=== PATIENT | male | born 1955 | race Caucasian/White ===

== ENCOUNTER 2018-07-03 08:09 | Day surgery (SDC) | payer OTHER ==
[2018-07-02 10:51] VITALS: BMI 28.1
[~2018-07-03 08:09] MED LIST: LACTATED RINGERS 1,000 ML IV SCH; LIDOCAINE 1% 20 ML VIAL (10MG/ML) FOR IV START INTRADERMA PRN; MIDAZOLAM (PF) 2 MG/2 ML VIAL IV PRN
[2018-07-03] MEDS ORDERED: PROPOFOL 10 MG/ML 20 ML VIAL IV ONE (09:33)
[2018-07-03] MEDS ORDERED: LIDOCAINE 1% INJ 10MG/ML (20 ML MDV) ONE (09:33)
[2018-07-03 10:00] VITALS: RESP 18
--- NOTE | 2018-07-03 10:01 | P.PCN ---
Date of Procedure: 07/03/18 Procedure(s) Performed: Procedure: Total colonoscopy. Preoperative diagnosis: Screening for neoplasia. Postoperative diagnosis: Mild diverticulosis with no evidence of acute diverticulitis, strictures, polyps or cancer. Preparation: HalfLytely prep. Sedation: Was provided by anesthesia. Brief clinical history: The patient a 62-year-old male who is scheduled for this evaluation for screening for neoplasia age being his risk factor as well as history of polyps. Apparently, he had a prior colonoscopy more than 10 years ago and he believes he had polyps removed. The patient has no abdominal complaints, bleeding or anemia. Procedure: With the patient on his left lateral decubitus position and after informed consent and adequate sedation, the perianal area was inspected and it did not show any fissures or fistulas. There were no masses felt on digital rectal examination. The Olympus CFH 190L video colonoscope was then inserted in the rectum in the usual fashion and advanced to the cecum. There was occasional diverticular orifices seen scattered in the sigmoid, around the hepatic flexure and on the right side with no evidence of acute diverticulitis or strictures. The mucosa appeared healthy. No polyps or tumors were seen. I retroflexed the endoscope in the rectum before the endoscope was withdrawn. The patient tolerated the procedure well. Plan: The patient was reassured. Discussed dietary measures. He will follow up with you as planned and in light of his history of polyps, I recommended repeat exam in 5 years.
[2018-07-03 10:20] VITALS: BP 118/83; PULSE 80
== END 2018-07-03 10:29 | disposition home or self-care (01) ==
LOC: ORWHC2ENDO 08:09
DX: Z12.11 Encounter for screening for malignant neoplasm of colon (principal); K57.30 Diverticulosis of large intestine without perforation or abscess without bleeding; F17.210 Nicotine dependence, cigarettes, uncomplicated; Z86.010 Personal history of colon polyps
CPT/HCPCS: J2001; J2704; G0105

== ENCOUNTER → 2021-02-19 | Outpatient (CLI) | payer MEDICARE, OTHER ==
--- NOTE | 2021-02-19 10:57 | US ---
EXAMINATION TYPE: US duplex aorta DATE OF EXAM: 02/19/2021 COMPARISON: NONE CLINICAL HISTORY: 65-year-old Z13.6 Screening for aneurysm. TECHNIQUE: Multiple sonographic images of the abdomen were obtained. FINDINGS: EXAM MEASUREMENTS: Abdominal Aorta: Proximal: 2.3cm Mid: 1.8cm Distal: 1.5cm Bifurcation: Right: 1.0 Left: 1.3cm IMPRESSION: No sonographic evidence for AAA.
== END | disposition home or self-care (01) ==
LOC: RADUSWWP 10:21
PROVIDERS: ATTEND Family Medicine
DX: Z13.6 Encounter for screening for cardiovascular disorders (principal)
CPT/HCPCS: 93979

== ENCOUNTER 2022-01-14 07:56 | Day surgery (SDC) | payer MEDICARE, OTHER ==
[2022-01-13 10:59] VITALS: BMI 28.5
[~2022-01-14 07:56] MED LIST changes: +ALPRAZolam 0.25 MG TAB PO PRN; +ASPIRIN 325 MG TAB PO PRN; -LACTATED RINGERS 1,000 ML IV SCH; -LIDOCAINE 1% 20 ML VIAL (10MG/ML) FOR IV START INTRADERMA PRN; -MIDAZOLAM (PF) 2 MG/2 ML VIAL IV PRN; +SODIUM CHLORIDE 0.9% 1,000 ML in EMPTY BAG 1 BAG IV ONE
[2022-01-14] MEDS ORDERED: SODIUM CHLORIDE 0.9% 1,000 ML IV ONE (08:10)
[2022-01-14] MEDS ORDERED: fentaNYL (PF) 50 MCG/ML 2 ML AMP ONE (09:53)
[2022-01-14] MEDS: MIDAZOLAM 2 MG/2 ML VIAL IV ONE ×2 (10:10→10:29)
[2022-01-14] MEDS: fentaNYL (PF) 50 MCG/ML 2 ML AMP IV ONE ×2 (10:10→12:00)
[2022-01-14] MEDS ORDERED: LIDOCAINE 1% INJ 10MG/ML (30 ML VIAL-PF) SQ ONE (10:11)
[2022-01-14] MEDS ORDERED: HEPARIN SODIUM 1,000 UN/ML (10ML VL) ONE (10:28)
[2022-01-14] MEDS ORDERED: HEPARIN SODIUM 1,000 UN/ML (10ML VL) IV ONE (10:28)
[2022-01-14] MEDS ORDERED: IOPAMIDOL-250 100ML BTL INTRAARTER ONE ×3 (11:47→12:00)
[2022-01-14] MEDS ORDERED: CLOPIDOGREL 75 MG TAB ONE (11:53)
[2022-01-14] MEDS ORDERED: CLOPIDOGREL 75 MG TAB PO ONE (11:53)
[2022-01-14] MEDS ORDERED: MIDAZOLAM 2 MG/2 ML VIAL IVP ONE (12:01)
[2022-01-14] MEDS ORDERED: ACETAMINOPHEN TAB 325 MG TAB PO PRN (12:21)
--- NOTE | 2022-01-14 12:24 | IR ---
Fluoroscopy HISTORY: Peripheral vascular occlusive disease 39.2 minutes fluoroscopy time supplied to the referring clinician. 227 intraoperative C-arm images d ocument the procedure. See dictated report from cardiology.
--- NOTE | 2022-01-14 13:31 | P.PCN ---
Description of Procedure: PROCEDURES PERFORMED: Abdominal angiography with bilateral runoff, SPRING COILING MACHINE SETTER and stenting of the left common iliac artery with a 7.0 x 59mm Omnilink stent, IVUS INDICATION: [place] class 3 claudication of left hip with exertion, abnormal ultrasound consistent with left inflow disease CONSENT:I have discussed the risks, benefits and alternative therapies for the above-mentioned procedure and for both sedation/analgesia as well as necessary blood product administration, if indicated, as they pertain to this patient. The patient has indicated understanding and acceptance of the risks and procedures discussed. PROCEDURE: After the risks, benefits and alternatives of the above mentioned procedure explained in detail with the patient, informed consent was obtained. Patient was taken to the catheterization lab and prepped and draped in usual fashion. 1% lidocaine was used to anesthetize the right femoral area. A 5- Italian sheath was placed in the right femoral artery using modified Seldinger technique. A 5-Italian pigtail catheter was inserted to the abdominal aorta and DSA imaging was obtained. Patient tolerated the diagnostic portion well. Next the decision was made to perform intervention. Using ultrasound guidance, a 6Fr sheath was placed in the left femoral artery. Heparin was given. Using a glide catheter and a 0.035 wire the proximal portion of the stenosis was crossed. Next a number of attempts were made using a 0.018 Asato wire. The lesion was eventually able to be wired and a microcatheter was advanced and verified to be intraluminal. Next balloon angioplasty was performed with a 4.0 balloon. IVUS was performed which showed the wire to be intraluminal with the reference iliac artery being 7.0 mm. This showed the wire exiting the proximal cap and therefore no kissing stents were felt needed. Next predilation was performed with a 6.0 x 40mm balloon. Next a 7.0 x 59mm Omnilink stent was ad vanced and deployed at the proximal left common iliac artery extending into the left external iliac artery. Repeat IVUS showed excellent stent apposition and sizing with no dissection. Preintervention there was 100% stenosis with limited flow from collaterals and post intervention there was 0% stenosis with uninhibited flow. Right and left femoral angiograms were performed which showed adequate anatomy for closure and therefore bilateral 6Fr Angioseals were placed with hemostasis achieved. The patient tolerated the procedure well. Patient was transported back to the post catheterization holding area in stable condition. Conscious Sedation: Patient was monitored under the direct supervision of vision of myself for conscious sedation using Versed and fentanyl for a total duration of 108 minutes HEMODYNAMICS: Ao: 132/77 Abdominal aorta: The abdominal aorta has mild calcifcation. Renal arteries are patent. There is no significant dissection or aneurysm. There is no signifi cant stenosis. Right lower extremity: Right common iliac artery: There is no significant stenosis. Right external iliac artery: There is no significant stenosis. Right internal iliac artery: There is no significant stenosis. Right common femoral artery: There is 30-40% right common femoral artery stenosis. Right profunda: There is no significant stenosis. Right SFA: There is no significant stenosis. Right popliteal artery: There is no significant stenosis. Right tibioperoneal trunk: There is no significant stenosis. Right anterior tibial artery: There is no significant stenosis. Right porterior tibial artery: There is no significant stenosis. Right peroneal artery: There is no significant stenosis. Left lower extremity: Left common iliac artery: There is 100% proximal stenosis. Left external iliac artery: The common iliac stenosis extends to the proximal external iliac artery and otherwise is normal. Left internal iliac artery: There is no significant stenosis. Left common femoral artery: There is no significant stenosis. Left profunda: There is no significant stenosis. Left SFA: There is no significant stenosis. Left popliteal artery: There is no significant stenosis. Left tibioperoneal trunk: There is no significant stenosis. Left anterior tibial artery: There is no significant stenosis. Left porterior tibial artery: There is no significant stenosis. Left peroneal artery: There is no significant stenosis. FINAL IMPRESSION: 1. Peripheral arterial disease as described above including 100% left common iliac artery stenosis 2. S/p SPRING COILING MACHINE SETTER and stenting of the left common iliac artery with a 7.0 x 59mm Omnilink stent PLAN: 1. Aggressive risk factor modification per most recent ACC/AHA guidelines. 2. Continue aspirin and Plavix for minimum of 3 months.
[2022-01-14] MEDS: NICOTINE 21MG/24HR PATCH TRANSDERM SCH (14:32)
[2022-01-14] MEDS: SODIUM CHLORIDE 0.9% 1,000 ML IV SCH (14:32)
[2022-01-14] MEDS: THIAMINE 100 MG TAB PO SCH (20:22)
[2022-01-14] MEDS: QUEtiapine 50 MG TAB PO SCH (20:22)
[2022-01-14] MEDS ORDERED: diphenhydrAMINE 25 MG CAP PO SCH (21:00)
[2022-01-14] MEDS ORDERED: ACETAMINOPHEN TAB 500 MG TAB PO SCH (21:00)
[2022-01-15] MEDS: SODIUM CHLORIDE 0.9% 1,000 ML IV SCH ×2 (06:24→11:05)
[2022-01-15] MEDS ORDERED: PANTOPRAZOLE 40 MG TABLET PO SCH (07:30)
[2022-01-15] MEDS: QUEtiapine 50 MG TAB PO SCH (07:42)
[2022-01-15] MEDS: THIAMINE 100 MG TAB PO SCH (07:42)
[2022-01-15] MEDS: NICOTINE 21MG/24HR PATCH TRANSDERM SCH (07:43)
[2022-01-15 07:50] VITALS: TEMP 98
[2022-01-15] MEDS ORDERED: ONDANSETRON 4 MG/2 ML VIAL IVP STA (08:15)
[2022-01-15] MEDS ORDERED: ASPIRIN 81 MG PO SCH (09:00)
[2022-01-15] MEDS ORDERED: CLOPIDOGREL 75 MG TAB PO SCH (09:00)
[2022-01-15 11:10] VITALS: BP 140/93; PULSE 84; RESP 18
--- NOTE | 2022-01-15 11:52 | P.DS ---
Providers Expected date of discharge: 01/15/22 Attending physician: Shane Zimmer DO Primary care physician: Matt Medina - Discharge Diagnosis(es) (1) Peripheral artery disease Current Visit: Yes Status: Acute Hospital Course: This pleasant 66-year-old male with a history of tobacco abuse, alcohol use, atypical chest pains, and left hip pain initially presented to the office with pain of his left lower extremity. He underwent a lower extremity ultrasound which showed monophasic dampening of waveforms throughout the inflow and down, concerning for more proximal stenosis. Patient was scheduled for a abdominal angiography with bilateral runoff. He was found to have 100% stenosis of the proximal left common iliac artery and underwent MICA PASTER and stenting of the left common iliac artery. Patient was recommended aggressive risk factor modifications and started on dual antiplatelet therapy aspirin and Plavix for a minimum of 3 months. Patient is examined this morning doing well ready to go home, in no signs of acute distress. pulses are present bilaterally lower extremities. Puncture site is soft with no hematoma. Patient will follow with Dr. Zimmer in the office Assessment: PHYSICAL EXAM: VITAL SIGNS: Reviewed. GENERAL: Well-developed in no acute distress. HEENT: Head is normocephalic. Pupils are equal, round. Sclerae anicteric. Mucous membranes of the mouth are moist. NECK: Supple. No JVD or thyromegaly RESPIRATORY: Respirations even and unlabored. Lungs diminished to auscultation bilaterally. CARDIO: Regular rate and rhythm. S1 and S2 heard. No murmur or gallops. EXTREMITIES: Normal range of motion. No clubbing or cyanosis. Peripheral pulses intact. Negative for bilateral lower extremity edema right femoral puncture site is soft with no hematoma NEURO: Orientated to person, time, mood is appropriate Procedures: Patient underwent abdominal angiography with bilateral renals, MICA PASTER and stenting of the left common iliac artery Patient Condition at Discharge: Good Plan - Discharge Summary Discharge Rx Participant: Yes New Discharge Prescriptions: New Aspirin EC [Ecotrin Low Dose] 81 mg PO DAILY 90 Days #90 tab Clopidogrel [Plavix] 75 mg PO DAILY 30 Days #30 tablet No Action Ibuprofen 200 mg PO Q6H PRN PRN Reason: Pain Thiamine [Vitamin B-1] 100 mg PO BID QUEtiapine FUMARATE [QUEtiapine FUMARATE ER] 50 mg PO BID Omeprazole [PriLOSEC] 20 mg PO DAILY Acetaminophen/Diphenhydramine [Tylenol PM 500-25mg] 1 tab PO HS Discharge Medication List Acetaminophen/Diphenhydramine [Tylenol PM 500-25mg] 1 tab PO HS 01/13/22 [Hist ory] Omeprazole [PriLOSEC] 20 mg PO DAILY 01/13/22 [History] QUEtiapine FUMARATE [QUEtiapine FUMARATE ER] 50 mg PO BID 01/13/22 [History] Thiamine [Vitamin B-1] 100 mg PO BID 01/13/22 [History] Aspirin EC [Ecotrin Low Dose] 81 mg PO DAILY 90 Days #90 tab 01/15/22 [Rx] Clopidogrel [Plavix] 75 mg PO DAILY 30 Days #30 tablet 01/15/22 [Rx] Follow up Appointment(s)/Referral(s): Shane Zimmer DO [STAFF PHYSICIAN] - 01/24/22 4:30 pm Patient Instructions/Handouts: Angio-Seal (DC), Peripheral Vascular Stent Placement (DC)
== END 2022-01-15 12:34 | disposition home or self-care (01) ==
LOC: CATHCVL 07:56 → 3SCARD 11:57 → CATHCVL 01-15 12:34
PROVIDERS: ATTEND Internal Medicine
DX: I70.212 Atherosclerosis of native arteries of extremities with intermittent claudication, left leg (principal); Z79.01 Long term (current) use of anticoagulants; Z79.82 Long term (current) use of aspirin
CPT/HCPCS: 37221; 75625; 75716; 37252; C1894 ×2; C1769 ×6; C1725 ×2; C1876; C1887; C1753; C1751; S4990 ×2; J2250; J2405; J2001; J3010; J1644; Q9966

== ENCOUNTER → 2022-09-06 | Outpatient (CLI) | payer MEDICARE, OTHER ==
--- NOTE | 2022-09-06 12:30 | US ---
EXAMINATION TYPE: US carotid duplex BILAT DATE OF EXAM: 09/06/2022 COMPARISON: NONE CLINICAL INDICATION: Male, 66 years old with history of R55 SYNCOPE AND COLLAPSE; Syncope TECHNIQUE: Carotid duplex ultrasound examination. Indirect Doppler criteria was utilized. FINDINGS: EXAM MEASUREMENTS: RIGHT: Peak Systolic Velocity (PSV) cm/sec ----- Right CCA: 84.3 ----- Right ICA: 93.8 ----- Right ECA: 120 ICA/CCA ratio: 1.1 RIGHT: End Diastole cm/sec ----- Right CCA: 21.1 ----- Right ICA: 33.3 ----- Right ECA: 25.1 LEFT: Peak Systolic Velocity (PSV) cm/sec ----- Left CCA: 74.1 ----- Left ICA: 82.9 ----- Left ECA: 122 ICA/CCA ratio: 1.1 LEFT: End Diastole cm/sec ----- Left CCA: 23.1 ----- Left ICA: 29.2 ----- Left ECA: 28.3 VERTEBRALS (direction of flow): Right Vertebral: Antegrade Left Vertebral: Antegrade Rhythm: Normal SERVICES ENGINEER NOTES: Heterogeneous plaque bilateral bulbs, however No significant velocity elevations IMPRESSION: Mild atherosclerotic plaque within both bulbs without ultrasound evidence for hemodynamically signifi cant stenosis of the bilateral internal carotid arteries. Criteria for Assigning % of Stenosis / Diameter reduction (Estimation based on the indirect measurements of the internal carotid artery velocities (ICA PSV). 1. Normal (no stenosis)=ICA PSV < 125 cm/s: ratio < 2.0: ICA EDV<40 cm/s. 2. Less than 50% stenosis=ICA PSV < 125 cm/s: ratio < 2.0: ICA EDV<40 cm/s. 3. 50 to 69% stenosis=ICA PSV of 125 to 230 cm/s: ration 2.0 ? 4.0: ICA EDV 40-100 cm/s. 4. Greater than 70% stenosis to near occlusion= ICA PSV > 230 cm/s: ratio > 4.0: ICA EDV > 100 cm/s. 5. Near occlusion= ICA PSV velocities may be low or undetectable: variable ratio and ICA EDV. 6. Total occlusion=unable to detect flow.
== END | disposition home or self-care (01) ==
LOC: RADUSWWP 11:04
PROVIDERS: ATTEND Family Medicine
DX: I70.90 Unspecified atherosclerosis (principal); R55 Syncope and collapse
CPT/HCPCS: 93880

== ENCOUNTER → 2022-12-05 | Outpatient (CLI) | payer MEDICARE, OTHER ==
--- NOTE | 2022-12-05 14:53 | MR ---
EXAMINATION TYPE: MR lumbar spine wo con DATE OF EXAM: 12/05/2022 COMPARISON: Lumbar spine radiograph 11/24/2022 HISTORY: Lower back and bilateral hip pain. TECHNIQUE: Multiplanar, multisequence images of the lumbar spine were acquired without IV contrast. FINDINGS: Lumbar segments are intact. No paraspinal masses are identified. Conus medullaris has a normal appe arance. Multilevel disc desiccation. Chronic appearing anterior wedge compression deformity of the L1 vertebral body with approximately 10% height loss and no retropulsion. No edema identified. Mild ret rolisthesis of L2 on L3. Diffusely heterogenous bone marrow signal. L1-L2: Broad-based disc bulge without significant effacement of the intrathecal sac. Bilateral facet arthropathy. No significant neural foraminal stenosis. L2-L3: Mild retrolisthesis. No disc herniation. Bilateral facet arthropathy. No significant central c anal stenosis. Mild bilateral neural foraminal stenosis. L3-L4: Broad-based disc bulge with ligamentum flavum buckling and bilateral facet arthropathy contrib uting to mild to moderate central canal stenosis. Moderate right and moderate to severe left neural f oraminal stenosis. L4-L5: Broad-based disc bulge with ligamentum flavum buckling and bilateral facet arthropathy contrib uting to moderate severe central canal stenosis. Moderate right and mild to moderate left neural fora sadaf stenosis. L5-S1: Broad-based disc bulge with bilateral facet arthropathy contribute to minimal central canal st enosis. There is moderate to severe right and severe left neural foraminal stenosis. IMPRESSION: 1. Multilevel moderate degenerative disc disease and facet arthropathy without disc herniation. This is most pronounced at L3-L5 with disc bulges, ligamentum flavum buckling, and facet arthropathy. Resu lts in mild to moderate central canal stenosis at L3-L4 and moderate to severe central canal stenosis at L4-L5. Varying degrees of neural foraminal stenosis as described above. 2. Mild retrolisthesis of L2 on L3. 3. Chronic anterior wedge compression deformity of the L1 vertebral body with approximately 10% heigh t loss and no retropulsion. No edema. 4. Diffuse heterogenous bone marrow signal which can be seen in the setting of tobacco abuse, anemia, or myeloproliferative disorder.
== END | disposition home or self-care (01) ==
LOC: RADMRIMAIN 13:04
PROVIDERS: ATTEND Orthopaedic Surgery
DX: M48.56XA Collapsed vertebra, not elsewhere classified, lumbar region, initial encounter for fracture (principal); M48.062 Spinal stenosis, lumbar region with neurogenic claudication; M51.36 Other intervertebral disc degeneration, lumbar region; M99.74 Connective tissue and disc stenosis of intervertebral foramina of sacral region; M43.16 Spondylolisthesis, lumbar region; M47.816 Spondylosis without myelopathy or radiculopathy, lumbar region; X58.XXXA Exposure to other specified factors, initial encounter
CPT/HCPCS: 72148

== ENCOUNTER → 2023-01-24 | Outpatient (CLI) | payer MEDICARE, OTHER ==
--- NOTE | 2023-01-24 13:37 | CT ---
EXAMINATION TYPE: CT thor lumbar spine wo con DATE OF EXAM: 01/24/2023 COMPARISON: None HISTORY: 67-year-old male back pain hx of scoliosis. M54.6 M54.50 LOW BACK PAIN, SPINE TECHNIQUE: Contiguous axial scanning of the thoracic and lumbar spine without IV contrast. Coronal an d sagittal reconstructions performed. CT DLP: 2229.90 mGycm Automated exposure control for dose reduction was used. FINDINGS: THORACIC SPINE: Underlying emphysematous change. Small hiatal hernia. Left common iliac artery stent. Normal appendix. Dextroconvex curvature along the upper thoracic spine. Moderate to advanced disc/endplate degenerative change in the visualized lower cervical spine. Thoracic spine shows preserved vertebral body heights and alignment. By CT, no large focal disc herniation is seen. Some scattered facet arthropathy upper and lower thoracic spine. On the right, this contributes to mo derate neural foraminal narrowing at C7-T1 and T1-T2. Also at T9-T10. On the left, there is more severe neuroforaminal stenosis at C6-C7 and C7-T1. LUMBAR SPINE: Moderate to advanced degenerative disc disease throughout with disc space narrowing and vacuum phenom enon. Additional hypertrophic facet arthropathy is present, greatest towards the right in the lower lumbar spine. There is degenerative grade 1 retrolisthesis from L1 through L5 levels. Disc bulges throughout impress onto the ventral thecal sac but do not result in any significant spina l canal stenosis. There is overall mild narrowing of the spinal canal at L3-L4 and more moderate at L4-L5. On the right, changes result in severe neuroforaminal stenosis at L5-S1, moderate to severe L4-L5, an d moderate at L3-L4. On the left, changes result in severe neuroforaminal stenosis at L3-L4 and moderate to severe at L5-S 1. Moderate at L4-L5. IMPRESSION: THORACIC SPINE: 1. SLIGHT DEXTROCONVEXED CURVATURE ALONG THE UPPER THORACIC SPINE. 2. NO VERTEBRAL COMPRESSION COLLAPSE OR MALALIGNMENT. No evident canal compromise by CT. 3. Moderate to advanced discogenic degenerative change in the visualized lower cervical spine. 4. Scattered facet arthropathy up or and lower thoracic spine. On the left, this results in severe ne ural foraminal stenosis at C6/C7 and C7-T1. Moderate on the right C7-T1, T1-T2, and T9-T10. Lumbar spine: 5. Moderate to advanced degenerative disc disease throughout. 6. Scattered facet arthropathy. Degenerative grade 1 retrolisthesis from L1 through L5 levels. 7. No vertebral compression collapse. 8. Changes result in moderate spinal canal narrowing at L4-L5 and mild at L3-L4. 9. Variable moderate to severe neuroforaminal stenoses as outlined above.
== END | disposition home or self-care (01) ==
LOC: RADCTMAIN 12:25
PROVIDERS: ATTEND Orthopaedic Surgery
DX: M43.8X4 Other specified deforming dorsopathies, thoracic region (principal); M50.31 Other cervical disc degeneration, high cervical region; M47.814 Spondylosis without myelopathy or radiculopathy, thoracic region; M99.72 Connective tissue and disc stenosis of intervertebral foramina of thoracic region; M51.36 Other intervertebral disc degeneration, lumbar region; M43.16 Spondylolisthesis, lumbar region; M47.816 Spondylosis without myelopathy or radiculopathy, lumbar region; M48.061 Spinal stenosis, lumbar region without neurogenic claudication; M99.73 Connective tissue and disc stenosis of intervertebral foramina of lumbar region
CPT/HCPCS: 72128; 72131

== ENCOUNTER → 2023-01-24 | Outpatient (CLI) | payer MEDICARE, OTHER ==
--- NOTE | 2023-01-24 15:10 | XR ---
EXAMINATION TYPE: XR scoliosis survey DATE OF EXAM: 01/24/2023 COMPARISON: NONE HISTORY: Pain TECHNIQUE: 4 views submitted FINDINGS: Chronic rib deformities suggest remote trauma. Hypertrophic and degenerative change of the spine. Scoliotic curvature of approximately 12 degrees. Correlate for previous vascular stent in the left iliac vasculature. Calcification of the visualized vasculature. Hypertrophic and degenerative ch anges of the spine. Minimal wedging L1 appears chronic. IMPRESSION: 1. Multilevel severe degenerative disc disease lumbar spine with scoliotic curvature of approximately 12 degrees.
== END | disposition home or self-care (01) ==
LOC: RADXRMAIN 12:32
PROVIDERS: ATTEND Orthopaedic Surgery
DX: M51.36 Other intervertebral disc degeneration, lumbar region (principal); M41.86 Other forms of scoliosis, lumbar region
CPT/HCPCS: 72082

== ENCOUNTER 2023-01-25 10:05 | Day surgery (SDC) | payer MEDICARE, OTHER ==
[~2023-01-25 10:05] MED LIST changes: -ALPRAZolam 0.25 MG TAB PO PRN; -ASPIRIN 325 MG TAB PO PRN; +LACTATED RINGERS 1,000 ML IV SCH; +LIDOCAINE 1% (10MG/ML) FOR IV START INTRADERMA PRN; -SODIUM CHLORIDE 0.9% 1,000 ML in EMPTY BAG 1 BAG IV ONE
[2023-01-25 11:36] VITALS: RESP 16; TEMP 97.7
[2023-01-25] MEDS ORDERED: IPRATROPIUM-ALBUTEROL 3 ML NEB INHALATION STA (11:48)
[2023-01-25] MEDS ORDERED: LIDOCAINE 2% (PF) 20 MG/ML 5 ML VIAL ONE (12:53)
[2023-01-25] MEDS ORDERED: PROPOFOL 10 MG/ML 20 ML VIAL IV ONE (12:53)
--- NOTE | 2023-01-25 13:01 | P.PCN ---
Date of Procedure: 01/25/23 Procedure(s) Performed: BRIEF HISTORY: Patient is a 67-year-old, pleasant, white male scheduled for an upper endoscopy as a part of evaluation of intermittent dysphagia to solids and history of Petit's esophagus that was diagnosed in July 2022. Biopsies from the Petit's esophagus was indefinite for dysplasia. He has been on omeprazole 20 mg twice daily and is scheduled for repeat upper endoscopy in 6 months.. PROCEDURE PERFORMED: Esophagogastroduodenoscopy with biopsy. PREOPERATIVE DIAGNOSIS: GERD/Petit's esophagus. IV sedation per anesthesia. PROCEDURE: After informed consent was obtained, the patient was brought into the endoscopy unit. IV sedation was administered by Anesthesia under continuous monitoring. Initially the Olympus GIF-140 video endoscope was inserted into the mouth. Esophagus intubated without any difficulty. It was gradually advanced into the stomach and duodenum and carefully examined. The bulb and the second part of the duodenum appeared normal. The scope at this time was withdrawn to the stomach, adequately insufflated with air, and upon careful examination, mucosa of the antrum, body, cardia and the fundus appeared normal. The scope was then withdrawn into the esophagus. Mall hiatal hernia noted. The GE junction was located at 39 cm from the incisors. There was a long segment of Petit's esophagus extending from 37-39 cm from the incisors and multiple biopsies were done from this area. Previously noted ulcerations in the distal esophagus appe ared completely healed. The esophagus appeared normal. There were no erosions or ulcerations seen and the patient tolerated the procedure well. IMPRESSION: 1. Petit's esophagus extending from 37-39 cm from the incisors status post multiple biopsies to evaluate for dysplasia. 2. Small hiatal hernia. RECOMMENDATIONS: The findings of this examination were discussed with the patient as well as his family. He was advised to follow with the biopsy results. In the meantime he will continue with omeprazole 20 mg daily and follow antrum reflux measures. If the biopsy does not show any evidence of dysplasia, he can have a repeat upper endoscopy in 3 years.
[2023-01-25 13:27] VITALS: BP 103/73; PULSE 89
== END 2023-01-25 13:51 | disposition home or self-care (01) ==
LOC: ORWHC2ENDO 10:05
PROVIDERS: ATTEND Internal Medicine Gastroenterology
DX: K22.70 Barrett's esophagus without dysplasia (principal); K21.00 Gastro-esophageal reflux disease with esophagitis, without bleeding; K44.9 Diaphragmatic hernia without obstruction or gangrene; I73.9 Peripheral vascular disease, unspecified; J44.9 Chronic obstructive pulmonary disease, unspecified; M19.90 Unspecified osteoarthritis, unspecified site; K21.9 Gastro-esophageal reflux disease without esophagitis; F17.210 Nicotine dependence, cigarettes, uncomplicated; Z79.51 Long term (current) use of inhaled steroids; Z79.899 Other long term (current) drug therapy
CPT/HCPCS: 94640; 88305; 43239; J2704; J2001

== ENCOUNTER → 2023-04-25 | Outpatient (CLI) | payer MEDICARE, OTHER | END | disposition home or self-care (01) | LOC: LABPAT 12:25 | PROVIDERS: ATTEND Orthopaedic Surgery | DX: Z01.812 Encounter for preprocedural laboratory examination (principal); M48.062 Spinal stenosis, lumbar region with neurogenic claudication; M47.817 Spondylosis without myelopathy or radiculopathy, lumbosacral region; Z22.322 Carrier or suspected carrier of Methicillin resistant Staphylococcus aureus | CPT/HCPCS: 36415; 86850; 86900; 86901; 87070 ==

== ENCOUNTER 2023-05-02 05:32 | Inpatient (IN) | payer MEDICARE, OTHER ==
--- NOTE | 2023-04-30 16:14 | P.HPOR ---
History of Present Illness H&P Date: 04/19/23 .D:Date: 04/19/23 : 10:14am .T:Title: [facility] History and Physical Date of :55 [id number]: NKDA Age: 67 year Height: 5'10" Weight: 191 lbs BMI: 27.41 kg/m2 Occupation: Retired VAS: 5 Hand:Right IMPRESSION: It was my pleasure to have seen and examined Lenny. I reviewed the patient's clinical syndrome, physical findings, and imaging studies during the appointment today. It is my impression that the patient has a diagnosis of. 1. L1-S1 spondylosis with stenosis, severe 2. Neurogenic claudication 3. Lower extremity radiculopathy, bilateral 4. Lower extremity weakness, bilateral 5. Low back pain I outlined the natural course history without intervention and various interventional options. Spine Surgery Risk Review Mr. Hester is presenting for evaluation of low back and bilateral lower extremity pain, bilateral lower extremity numbness, tingling, and weakness. It was my pleasure to have seen and examined Mr. Hester. In our visit today we have had a chance to go over subjective complaints, physical examination findings and treatments including the natural course history without intervention and various interventional options. The patients imaging demonstrates: CT [facility]23 of the Thoracic & Lumbar Spine: Images reviewed with pt. L1-S1 sondylosis severe, with vacuum disc at each level. Grade I spondylolisthesis of L3-4 and L4-5 noted on these films. No fractrures notes. Severe disc degeneration, collapse, facet arthropathy, overgrowth and hypertrophy all contribute to severe stenosis at these levels along with flattened LL. MRI completed at [facility] on 12/05/2022 of Lumbar Spine: - Imaging is re-reviewed today with the patient. Severe spondylosis throughout the lumbar spine. The span from L1 to S1. There is flattening of the normal lumbar lordosis secondary to disc collapse at every level. There is retrolisthesis of L1 and L2 L2 L3 and L3-L4. There is anterior listhesis of L4 and L5 with moderate to severe central stenosis at L4-L5. There is severe spondylosis L5-S1 with bilateral foraminal stenosis which is severe. Very degrees of foraminal stenosis throughout the lumbar spine mostly severe. Thoracic or lumbar junction shows kyphotic alignment. Boggy facets throughout the lumbar spine no acute fracture. XRAY of the Lumbar Multiview (AP, Lateral, Flexion, Extension) with AP pelvis; 5 views taken at [facility] on 11/24/22: - Images re-reviewed with the patient in office today. Severe multilevel spondylitic degenerative changes with preserved alignment. Multilevel diminished disc height. Chronic compression fracture of L1 vertebral body with 10% height loss. Multilevel opposing endplate changes with osteophytosis. Multilevel bilateral foraminal stenosis. No acute osseous abnormalities. AP Pelvis: The visualized sacrum and iliac wings are within normal limits. On physical exam, Mr. Hester demonstrates: A sharp, shooting pain throughout the lumbar spine that radiates down into the bilateral lower extremities with any activity or movement. He denies experiencing any significant low back pain when sitting or at rest. The patient notes that his left leg pain is much more severe than the right at this time. He states his lower extremity pain is associated with numbness and tingling. The patient notes increased weakness throughout the bilateral lower extremities that is more significant upon the left side. The patient states that his symptoms worsen after prolonged standing or after any bending, lifting, or twisting motions. The patient notes that his symptoms have started to become intractable. The patient reports experiencing severe sleep disturbances related to his ongoing pain and associated symptoms. I have explained to the patient that as their condition progresses it will cause further neurological deficits and eventual paralysis. Based on the patients imaging, physical exam, and the rapid progression and disabling nature of their symptoms, at this time I recommend surgery in the form of a: [id number] decompression and fusion. I discussed the risk and benefits of this procedure at length with Mr. Hester. The patient agreed to considered pursuing the procedure abovementioned. Prior to surgery, she should follow up with her PCP (Cardio, ID, IM etc) for clearance. Questions were invited and answered, and the patient wishes to proceed as outlined below. Currently, I am recommendin.[id number] decompression and fusion 2.Review of surgical risks and benefits as well as an educational packet on the proposed surgical procedure. Risks: All surgical procedures come with inherent risks, including those related to positioning, anesthesia, intraoperative findings, and postoperative complications. It is important to understand that surgery does not come with any guarantee of a successful outcome as complications and adverse events are always possible. The patient was given a handout in office today discussing the surgical procedure and risks associated with the intervention, both of which were discussed with the patient. These risks include but are not limited to the following: * Experiencing same, different or even worse symptoms in back, neck, arms, or legs compared to before surgery. Requiring further surgery or other forms of treatment presently or at some time in the future at same or other levels of the intended spine surgery. On an extreme but fortunately relatively rare basis severe complication such as blindness, stroke, heart attack, temporary and/or permanent nerve injury, paralysis, coma, or may occur, sometimes without known explanation. Surgical complications may include but are not limited to risk of infection, fl uid accumulation in the surgical dissection site, including a seroma or hematoma, that requires additional surgery, wound drainage, bleeding, new numbness or weakness, vision changes/loss, spinal fluid leakage, non-healing and/or infected incision, headaches, difficulty or inability to swallow, hoarseness, hemopneumothorax, pneumothorax, impotence, retrograde ejaculation, vaginal dryness; injury to nerves, spinal cord, blood vessels, lymphatics or other vital organs (i.e., bowel injury, injury to the great vessels); heterotopic bone formation; complications related to the hardware such as scre ws, rods, cages including misplaced hardware, device failure, instrumentation at the wrong spine level, hardware fracture/breakage, or hardware loosening; vertebral failure of the spinal column above or below the newly placed hardware; retained surgical instrumentations or devices and the need for further surgery. * Medical risks of the planned spine surgery include but are not limited to generalized Infections to the whole body or local areas outside of the surgical site (sepsis), heart attack, bleeding, anaphylaxis, meningitis, seizure, epilepsy, hearing loss, burn quintana, laceration of the head or other areas of the body, bruising, hypersensitivity of the skin, bladder over distension; allergic reaction; shoulder injury related to positioning; fat, blood and air clots to other areas of the body like heart, lungs, brain; failure of internal organs such as lungs, kidneys, liver and excessive bleeding. If blood transfusions are necessary, note that transfusions may cause intolerance reactions such as anaphylaxis or other complex reactions. Despite best efforts, the results of spine surgery might not heal in terms of bone, soft tissues such as skin, fascia, ligaments, and joints. Additionally, in order to achieve best possible results, spine surgery may be carried out beyond the initially planned levels and involve decompression, fusion including insertion of hardware at levels other than the original intended area of surgical interest change some portions of the procedure in order to ensure the best possible outcomes. With spine surgery and spinal fusion, there are different off label uses of instrumentation (devices, implants and hardware) as well as biological substances (bone morphogenic proteins, demineralized bone matrix) as well as using extra bone from allograft sources (i.e. cadaver bone) or autograft (iliac crest bone, ribs, or the spine itself). The patient has been given information about these practices and their inherent risks and benefits. [facility] is an educational center that serves as a training facility for neurosurgical and orthopedic DRYWALL WORKER and Nursing students. Physician assistants are medically trained surgical providers who function in the outpatient, inpatient, and operating room setting under the direct supervision of the attending surgeon. [facility] has multiple operating rooms with single and overlapping rooms running daily. They currently function under the required guidelines as produced by the [facility] Finance Committee with regards to the overlapping rooms and will continue to comply with changes to this policy as they occur. The requirements include and are complied with as follows: (1) the critical portions of the overlapping rooms will not occur at the same time, (2) the attending physician will be physically present during the critical portions of the procedure and immediately available during the entire case, and (3) a back-up attending is designated should the primary attending not be immediately available. The patient has had a chance to review all the listed information, has been given print outs detailing this information, and has had all his/her questions answered to their satisfaction. It was my pleasure to have seen and examined Mr. Hester. In our visit today we have had a chance to go over my understanding of our patient's current condition, the natural course history without intervention and various interventional options. Questions were invited and answered, and the patient wishes to proceed as outlined above. I have seen and examined the patient for 25 minutes and we have spent more than 50% of the time in repeat and detailed counseling about the patient's condition, its natural course history with out and as much as can be predicted with surgery and re-review of various surgical treatment options. In conclusion, Mr. Hester requested we proceed with the above suggested surgery and are willing to accept risks and limitations of the suggested surgery as nature of the disease process and our best attempts at treatment for the condition. Thank you again for allowing us to be part of your patient's care. Please don't hesitate to contact me if you have any further questions. Signed and authenticated by: [employer] P:\\\\ppart\\\\Files\\\\[id number] \\[id number]\\\\[id number]\\\\[id number]\\\\[id number]\\\\[id number]\\\\[id number]\\\\[id number]\\\\[id number]\\\\[id number]\\\\[id number] \\d Jluis Yao DO [facility] Complex and Minimally Invasive Spine Surgery [address] [place] [address] Follow-up: Post procedure Patient Education: (Informational booklet, instructions, etc) given at today's appointment: Yes .ED:Patient Education: Y Plan at next visit: X-ray (AP & Lat) lumbar spine Medications Reviewed: YES In our visit today Mr. Hester and I have had a chance to go over my understanding of the patient's current condition, the natural course history without intervention and various interventional options. Questions were invited and answered, and the patient wishes to proceed as outlined above. I will be sure to keep you updated afterMr. Hester returns here for further follow-up. Thank you again for your referral. Please do not hesitate to contact me if you have any further questions. Signed and authenticated by: Jluis Yao DO [facility] Complex and Minimally Invasive Spine Surgery [address] [place] [address] This message is confidential, intended only for the named recipient(s) and may contain information that is privileged or exempt from disclosure under applicable law. If you are not the intended recipient(s), you are notified that the dissemination, distribution or copying of this information is strictly prohibited. If you received this message in error, please notify the sender then delete this message. Patient verbalizes understanding of the information discussed. The above note was initiated by Miroslava Linares, physician recording early childhood teacher assistant for Dr. Jluis Yao. This note has been reviewed by Dr. Yao, who has made his personal changes and impressions for this document. CC: Matt Medina M.D. # SIGNED BY Jluis Yao (GOO)04/22/2023 11:42AM Past Medical History Past Medical History: COPD, GERD/Reflux, Hyperlipidemia, Osteoarthritis (OA), Prostate Disorder, Vascular Disorder Additional Past Medical History / Comment(s): bilater leg pain left leg-worse left hip( possible back related) ,hx colon polyps, trouble swallowing. some vomiting uses carafate. BPH, cannot move well due to back pain. pt states he does not use his inhalers and did not refill his atorvastatin. History of Any Multi-Drug Resistant Organisms: MRSA Date of last positivie culture/infection: approx 5-10 yrs ago (pt unsure-already in computer) MDRO Source:: unk site Past Surgical History: Orthopedic Surgery Additional Past Surgical History / Comment(s): thumb and finger repair, colonoscopy, egd , left iliac stend placement. Past Anesthesia/Blood Transfusion Reactions: No Reported Reaction Smoking Status: Current every day smoker - Past Family History Mother Family Medical History: No Reported History Father Family Medical History: Myocardial Infarction ([place]) Medications and Allergies Home Medications Medication Instructions Recorded Confirmed Type Acetaminophen/Diphenhydramine 1 tab PO HS 01/13/22 04/26/23 History [Tylenol PM 500-25mg] Omeprazole [PriLOSEC] 20 mg PO DAILY 01/13/22 04/26/23 History QUEtiapine FUMARATE [QUEtiapine 100 mg PO BID 01/13/22 04/26/23 History FUMARATE ER] Thiamine [Vitamin B-1] 100 mg PO BID 01/13/22 04/26/23 History Aspirin EC [Ecotrin Low Dose] 81 mg PO DAILY 90 Days #90 tab 01/15/22 04/26/23 Rx Albuterol Inhaler [Ventolin Hfa 2 puff INHALATION Q4HR PRN 01/24/23 04/26/23 History Inhaler] Budesonide/Formoterol Fumarate 2 puff INHALATION BID PRN 01/24/23 04/26/23 History [Symbicort 160-4.5 Mcg Inhaler] Gabapentin 300 mg PO TID 04/26/23 04/26/23 History Sucralfate [Sucralfate Oral Susp] 10 ml PO DIRECTED 04/26/23 04/26/23 History Allergies Allergy/AdvReac Type Severity Reaction Status Date / Time No Known Allergies Allergy Verified 04/25/23 15:29 Physical Examination Osteopathic Statement: *. No significant issues noted on an osteopathic structural exam other than those noted in the History and Physical/Consult.
[~2023-05-02 05:32] MED LIST changes: -LACTATED RINGERS 1,000 ML IV SCH; -LIDOCAINE 1% (10MG/ML) FOR IV START INTRADERMA PRN; +TRANEXAMIC 1,000 MG/100ML-NACL 1,000 MG in SALINE 1 100ML.BAG IVPB PRN
[2023-05-02] MEDS ORDERED: droPERidol 5 MG/2 ML VIAL IVP ONE (05:41)
[2023-05-02] MEDS ORDERED: LACTATED RINGERS 1,000 ML IV SCH (05:41)
[2023-05-02] MEDS ORDERED: ONDANSETRON 4 MG/2 ML VIAL IVP ONE (05:41)
[2023-05-02] MEDS ORDERED: LIDOCAINE 1% (10MG/ML) FOR IV START INTRADERMA PRN (05:41)
[2023-05-02] MEDS: LACTATED RINGERS 1,000 ML IV ONE (06:30)
[2023-05-02] MEDS: ACETAMINOPHEN TAB 500 MG TAB PO PRN (06:30)
[2023-05-02] MEDS: GABAPENTIN 300 MG CAP PO PRN (06:30)
[2023-05-02] MEDS: ONDANSETRON 4 MG/2 ML VIAL IVP PRN (06:31)
[2023-05-02 06:34] VITALS: BP 164/87; PULSE 107; RESP 18; TEMP 96.6
[2023-05-02 06:36] LABS: Anisocytosis Slight; Basophils # (A) 0.1 k/uL (0-0.2); Basophils % (A) 1 %; Eosinophils % (A) 0 %; HGB 10.2 gm/dL (13.0-17.5); Hypochromasia Marked; Lymphocytes # (A) 0.6 k/uL (1.0-4.8); Lymphocytes % (A) 12 %; MCH 20.5 pg (25.0-35.0); MCV 68.2 fL (80.0-100.0); Mean Platelet Volume 7.4; Microcytosis Marked; Monocytes # (A) 0.4 k/uL (0-1.0); Monocytes % (A) 7 %; Neutrophils # (A) 3.7 k/uL (1.3-7.7); Neutrophils % (A) 77 %; Platelet Count 354 k/uL (150-450); Poikilocytosis Slight; RBC 4.98 m/uL (4.30-5.90); RDW 19.6 % (11.5-15.5); WBC 4.8 k/uL (3.8-10.6)
[2023-05-02 06:48] LABS: ALT 51 U/L (4-49); AST 46 U/L (17-59); African American GFR (CKD) >90 (>60 ml/min/1.73 sqM); Albumin 4.7 g/dL (3.5-5.0); Alkaline Phosphatase 101 U/L (38-126); Anion Gap 16 mmol/L; Blood Urea Nitrogen 12 mg/dL (9-20); Calcium 9.2 mg/dL (8.4-10.2); Carbon Dioxide 21 mmol/L (22-30); Chloride 102 mmol/L (98-107); Glucose 177 mg/dL (74-99); Non-African American GFR(CKD) 83 (>60 ml/min/1.73 sqM); Potassium 3.9 mmol/L (3.5-5.1); Sodium 139 mmol/L (137-145); Total Bilirubin 0.7 mg/dL (0.2-1.3); Total Protein 8.5 g/dL (6.3-8.2)
[2023-05-02 06:54] LABS: Partial Thromboplastin Time 26.6 sec (22.0-30.0); Prothrombin Time 11.1 sec (10.0-12.5)
[2023-05-02] MEDS ORDERED: HYDROmorphone 0.5 MG/0.5 ML SYRINGE IVP PRN (07:00)
--- NOTE | 2023-05-02 07:41 | P.PN ---
Progress Note - Text Progress Note Date: 05/02/23 Patient was seen and examined in preoperative area. In discussion with anesthesia after they evaluated the patient he is currently having active diarrhea as well as not feeling well. We discussed with the patient at length his current symptoms. He has had no fevers however he stated that this morning he almost called in and said he wanted to wait on surgery because he was not feeling well. She came many ways. He is currently having active diarrhea which he feels like he cannot control. He denies any fevers or chills shortness of breath at this time. Due to concerns of potential infection along with active fluid shifts and laboratory values in discussion with anesthesia they do not feel comfortable proceeding. I agree. I had a long talk with the patient about being safe for surgery as well as postponing surgery at this time. He understands. He is very frustrated however he knows that we have his best interest in mind. We will help him in any way possible and expedite him getting in again. I would like to have him evaluated by his primary care doctor as soon as possible. If this is not possible then we will attempt to have him evaluated by a internal medicine doctor. He was cleared by cardio and pulmonary as well as his primary care doctor for this surgery. We will make sure that these clearances are valid before proceeding with surgery again. He is comfortable with this at this time. He will receive a call from my office today to discuss rescheduling.
== END 2023-05-02 08:00 | disposition home or self-care (01) | DRG 552 ==
LOC: 2ORMAIN 05:32
PROVIDERS: ADMIT Orthopaedic Surgery; ATTEND Orthopaedic Surgery
DX: M47.26 Other spondylosis with radiculopathy, lumbar region (principal); M48.56XA Collapsed vertebra, not elsewhere classified, lumbar region, initial encounter for fracture; M48.062 Spinal stenosis, lumbar region with neurogenic claudication; J44.9 Chronic obstructive pulmonary disease, unspecified; Z53.09 Procedure and treatment not carried out because of other contraindication; K21.9 Gastro-esophageal reflux disease without esophagitis; M19.90 Unspecified osteoarthritis, unspecified site; N40.0 Benign prostatic hyperplasia without lower urinary tract symptoms; Z86.010 Personal history of colon polyps; Z86.14 Personal history of Methicillin resistant Staphylococcus aureus infection; M43.16 Spondylolisthesis, lumbar region; M51.17 Intervertebral disc disorders with radiculopathy, lumbosacral region; M47.817 Spondylosis without myelopathy or radiculopathy, lumbosacral region; E78.5 Hyperlipidemia, unspecified; F17.210 Nicotine dependence, cigarettes, uncomplicated; Z79.51 Long term (current) use of inhaled steroids; Z79.82 Long term (current) use of aspirin; Z79.899 Other long term (current) drug therapy; Z82.49 Family history of ischemic heart disease and other diseases of the circulatory system; Z98.1 Arthrodesis status
CPT/HCPCS: 80053; 82306; 85025; 85610; 85730

== ENCOUNTER 2023-05-11 07:23 | Inpatient (IN) | payer MEDICARE, OTHER ==
[~2023-05-11 07:23] MED LIST changes: +HYDROmorphone 0.5 MG/0.5 ML SYRINGE IVP PRN; +LIDOCAINE 1% (10MG/ML) FOR IV START INTRADERMA PRN; +ONDANSETRON 4 MG/2 ML VIAL IVP PRN
[2023-05-11] MEDS: LACTATED RINGERS 1,000 ML IV ONE ×5 (08:00→15:30)
[2023-05-11] MEDS: MIDAZOLAM 2 MG/2 ML VIAL IVP ONE (08:10)
[2023-05-11] MEDS: fentaNYL (PF) 50 MCG/ML 2 ML AMP IVP ONE ×3 (08:11→09:11)
[2023-05-11] MEDS: GABAPENTIN 300 MG CAP PO PRN (08:13)
[2023-05-11] MEDS: ACETAMINOPHEN TAB 500 MG TAB PO PRN (08:13)
[2023-05-11 08:15] LABS: Glucose,Whole Blood 150 mg/dL (70-110)
[2023-05-11] MEDS: ONDANSETRON 4 MG/2 ML VIAL IVP ONE (08:36)
[2023-05-11] MEDS: fentaNYL (PF) 50 MCG/1 ML VIAL IVP ONE (08:50)
--- NOTE | 2023-05-11 08:59 | P.PN ---
Progress Note - Text Progress Note Date: 05/11/23 HISTORY AND PHYSICAL UPDATE Pt s/e in the Pre op area. Discussed his current state and how he is feeling he is ready for surgery and he feels much better than before and wants surgery today. H&P reviewed from before no changes noted. Exam no changes. Risks and benefits discussed again. He understands and is willing to assume these risks. He is willing to proceed.
[2023-05-11] MEDS: THROMBIN (BOVINE) 5,000 UNIT VIAL MISCELLANE ONE ×2 (09:15)
[2023-05-11] MEDS: GELATIN SPONGE,ABSORB (LARGE) 1 EACH SPONGE MISCELLANE ONE (09:17)
[2023-05-11] MEDS ORDERED: PHENYLEPHRINE 10 MG/ML VIAL ONE (09:29)
[2023-05-11] MEDS ORDERED: fentaNYL (PF) 50 MCG/ML 2 ML AMP ONE (09:29)
[2023-05-11] MEDS ORDERED: DEXMEDETOMIDINE 200 MCG/2 ML VIAL IV ONE (09:29)
[2023-05-11] MEDS ORDERED: VASOPRESSIN 20 UNIT/ML 1 ML VIAL ONE (09:29)
[2023-05-11] MEDS ORDERED: KETAMINE HCL IN 0.9 % NACL 50 MG/5 ML SYRINGE ONE (09:29)
[2023-05-11] MEDS ORDERED: NEOSTIGMINE 1 MG/ML 10 ML VIAL ONE (09:29)
[2023-05-11] MEDS ORDERED: WATER FOR INJECTION, STERILE 10 ML VIAL IV ONE (09:29)
[2023-05-11] MEDS ORDERED: ePHEDrine 50 MG/ML 1 ML VIAL ONE (09:29)
[2023-05-11] MEDS ORDERED: ALBUMIN HUMAN 5% (25gm) 500 ML VIAL IVPB ONE (09:29)
[2023-05-11] MEDS ORDERED: ONDANSETRON 4 MG/2 ML VIAL ONE (09:29)
[2023-05-11] MEDS ORDERED: SUCCINYLCHOLINE CHLORIDE 200 MG/10 ML VIAL IV ONE (09:29)
[2023-05-11] MEDS ORDERED: GLYCOPYRROLATE 0.2 MG/ML 2 ML VIAL ONE (09:29)
[2023-05-11] MEDS ORDERED: PHENYLEPHRINE-0.9% NACL SYG 1,000 MCG/10 ML SYRINGE ONE (09:29)
[2023-05-11] MEDS ORDERED: PROPOFOL 10 MG/ML 20 ML VIAL IV ONE (09:29)
[2023-05-11] MEDS ORDERED: TRANEXAMIC 1,000 MG/100ML-NACL PREMIX BAG ONE (09:29)
[2023-05-11] MEDS ORDERED: ROCURONIUM 10 MG/ML (5 ML VIAL) IV ONE (09:29)
[2023-05-11] MEDS ORDERED: MIDAZOLAM 2 MG/2 ML VIAL ONE (09:29)
[2023-05-11] MEDS: DEXAMETHASONE SOD PHOSPHATE 4 MG/ML 1 ML VIAL IVP ONE (09:29)
[2023-05-11] MEDS: GENTAMICIN 80 MG in SODIUM CHLORIDE 0.9% IRRIGATIO 3,000 ML IRRIGATION ONE (10:15)
[2023-05-11] MEDS: ceFAZolin 3,000 MG in SODIUM CHLORIDE 0.9% IRRIGATIO 3,000 ML IRRIGATION ONE (10:15)
[2023-05-11] MEDS: VANCOMYCIN 1,000 MG VIAL MISCELLANE ONE (14:44)
--- NOTE | 2023-05-11 15:01 | P.ANPRN ---
Procedure Note - Anesthesia - Invasive Line Left Arterial Line Time Out Performed: Yes Date of Procedure: 05/11/23 Location of Patient: PreOp Preparation: Sterile Prep, Sterile Dressing Arterial Line Location: Radial Ultrasound Used: No Purpose - Visualization and Identification of Vasculature: No Narrative: Central line placement per sterile protocol utilized. Informed consent obtained from the patient. Procedure was performed under complete aseptic precautions. The left wrist is slightly extended and placed on a roll of cloth. Radial artery palpated and appeared to have a intact collateral circulation. Front of the wrist was cleaned with ChloraPrep. It was draped and 2 mL of 1% lidocaine was infiltrated and ability into the front of the wrist. A 20-gauge two and half inch Arrow arterial catheter was inserted and a bright red blood/back was noticed. It was connected to the pressure monitoring line and the flashback was confirmed. The line was sutured into the skin. Tegaderm dressing was applied. Patient tolerated the procedure very well with no apparent complications. Right Central Line Time Out Performed: Yes Date of Procedure: 05/11/23 Location of Patient: PreOp Preparation: Sterile Prep Central Line Location: Internal Jugular Ultrasound Used: Yes Purpose - Visualization and Identification of Vasculature: Yes Image Stored and Saved: Yes Narrative: Central line placement per sterile protocol utilized. Informed consent obtained.Right Internal jugular vein cannulated under aseptic precautions. 3cc 1% lidocaine infiltrated initially after cleaning with iodine based prep and draping. Ultrasound used to locate the vein and Seldinger technique used. 7-Bur[place]ian triple lumen central line in inserted after the finding the needle with commercial drone pilot needle/catheter. The catheter was sutured in place. The insertion site was dressed with biopatch and tegaderm. Patient tolerated the procedure well.
[2023-05-11] MEDS ORDERED: ONDANSETRON 4 MG/2 ML VIAL IVP PRN (16:22)
[2023-05-11] MEDS ORDERED: HYDROcodone/APAP 10-325MG 1 EACH TAB PO PRN (16:22)
[2023-05-11] MEDS ORDERED: bisacodyL 10 MG SUPP RECTAL PRN (16:22)
[2023-05-11] MEDS ORDERED: MAG HYDROX/AL HYDROX/SIMETH 30 ML CUP PO PRN (16:22)
[2023-05-11] MEDS ORDERED: NA PHOS,M-B/NA PHOS,DI-BA 133 ML ENEMA RECTAL PRN (16:22)
--- NOTE | 2023-05-11 16:25 | P.OP ---
Date of Procedure: 05/11/23 Preoperative Diagnosis: Current Active Problems Thoracic, thoracolumbar and lumbosacral intervertebral disc disorder (Acute) Thoracolumbar radiculopathy due to intervertebral disc disorder (Acute) Thoracolumbar kyphosis (Acute) Thoracolumbar back pain (Acute) Lumbar stenosis with neurogenic claudication (Acute) Lumbar spondylosis (Acute) Lumbosacral spondylosis (Acute) Atrophy of muscle of both lower legs (Acute) Sacroiliac joint dysfunction of both sides (Acute) Postoperative Diagnosis: Current Active Problems Thoracic, thoracolumbar and lumbosacral intervertebral disc disorder (Acute) Thoracolumbar radiculopathy due to intervertebral disc disorder (Acute) Thoracolumbar kyphosis (Acute) Thoracolumbar back pain (Acute) Lumbar stenosis with neurogenic claudication (Acute) Lumbar spondylosis (Acute) Lumbosacral spondylosis (Acute) Atrophy of muscle of both lower legs (Acute) Sacroiliac joint dysfunction of both sides (Acute) Procedure(s) Performed: 68027 OSTEOTOMY OF SPINE, POSTERIOR OR POSTEROLATERAL APPROACH, 3 COLUMNS, 1 VERTEBRAL SEGMENT (EG, PEDICLE/VERTEBRAL BODY SUBTRACTION); LUMBAR 5-SACRAL 1 INTRADISCAL OSTEOTOMY (STEPHEN) FOR DEFORMITY CORRECTION 32562 ARTHRODESIS, COMBINED POSTERIOR OR POSTEROLATERAL TECHNIQUE WITH POSTERIOR INTERBODY TECHNIQUE INCLUDING LAMINECTOMY AND/OR DISCECTOMY SUFFICIENT TO PREPARE INTERSPACE (OTHER THAN FOR DECOMPRESSION), SINGLE INTERSPACE, LUMBAR 5-SACRAL 1 47318 LAMINECTOMY, FACETECTOMY, OR FORAMINOTOMY (UNILATERAL OR BILATERAL WITH DECOMPRESSION OF SPINAL CORD, CAUDA EQUINA AND/OR NERVE ROOT[S] [EG, SPINAL OR LATERAL RECESS STENOSIS]), DURING POSTERIOR INTERBODY ARTHRODESIS, LUMBAR; SINGLE VERTEBRAL SEGMENT LUMBAR 2-3 49274 ARTHRODESIS, POSTERIOR OR POSTEROLATERAL TECHNIQUE, SINGLE INTERSPACE; THORACIC 10-11 98938 POSTERIOR SEGMENTAL INSTRUMENTATION (EG, PEDICLE FIXATION, DUAL RODS WITH MULTIPLE HOOKS AND SUBLAMINAR WIRES); 7 TO 12 VERTEBRAL SEGMENTS THORACIC 10-PELVIS 79230/50 ARTHRODESIS, SACROILIAC JOINT, OPEN, INCLUDES OBTAINING BONE GRAFT, INCLUDING INSTRUMENTATION, WHEN PERFORMED BILATERAL SIJ FUSION 60942 PELVIC FIXATION (ATTACHMENT OF CAUDAL END OF INSTRUMENTATION TO PELVIC BONY STRUCTURES) OTHER THAN SACRUM 21275 x4 INSERTION OF INTERBODY BIOMECHANICAL DEVICE(S) (EG, SYNTHETIC CAGE, MESH) WITH INTEGRAL ANTERIOR INSTRUMENTATION FOR DEVICE ANCHORING (EG, SCREWS, FLANGES), WHEN PERFORMED, TO INTERVERTEBRAL DISC SPACE IN CONJUNCTION WITH INTERBODY ARTHRODESIS, EACH INTERSPACE; L2-3, L3-4, L4-5, L5-S1 71481 OSTEOTOMY OF SPINE, POSTERIOR OR POSTEROLATERAL APPROACH, 3 COLUMNS, 1 VERTEBRAL SEGMENT (EG, PEDICLE/VERTEBRAL BODY SUBTRACTION); EACH ADDITIONAL VERTEBRAL SEGMENT (LIST SEPARATELY IN ADDITION TO CODE FOR PRIMARY PROCEDURE) L3-4 STEPHEN FOR DEFORMITY CORRECTION AND MOBILIZATION 28102 ARTHRODESIS, COMBINED POSTERIOR OR POSTEROLATERAL TECHNIQUE WITH POSTERIOR INTERBODY TECHNIQUE INCLUDING LAMINECTOMY AND/OR DISCECTOMY SUFFICIENT TO PREPARE INTERSPACE (OTHER THAN FOR DECOMPRESSION), SINGLE INTERSPACE, LUMBAR; EACH ADDITIONAL INTERSPACE; L4-5, L3-4, L2-3 65980 ARTHRODESIS, POSTERIOR OR POSTEROLATERAL TECHNIQUE, SINGLE INTERSPACE; EACH ADDITIONAL INTERSPACE; THORACIC 11-12, T12-L1, L1-2 39875 x3 LAMINECTOMY, FACETECTOMY, OR FORAMINOTOMY (UNILATERAL OR BILATERAL WITH DECOMPRESSION OF SPINAL CORD, CAUDA EQUINA AND/OR NERVE ROOT[S] [EG, SPINAL OR LATERAL RECESS STENOSIS]), DURING POSTERIOR INTERBODY ARTHRODESIS, LUMBAR; EACH ADDITIONAL SEGMENT L1-2, L3-4, L4-5, L5-S1 86983 STEREOTACTIC COMPUTER-ASSISTED (NAVIGATIONAL) PROCEDURE; SPINAL USE OF [employer] NAVIGATION FOR SCREW PLACEMENT CPTMOD 22 THIS CASE TOOK 75% LONGER THAN EXPECTED DUE TO CORMORBID CONDITIONS, HIGH BMI >40, EXTENT OF LUMBAR DISEASE AND HIGH TECHNICALITY OF THE CASE. [id number] DECOMPRESSION AND FUSION WITH STEPHEN AT L5-S1, DEFORMITY CORRECTION, B/L SIJ FUSION OPEN, INTERBODY PLACEMENT AND USE OF NAVIGATION Implants: -LIFE SPINE ARX SCREWS -GREY EVERST 6.0 RAMESH, GREY PELVIC SCREWS/AMANUEL SCREWS -EXPANDING INNOVATIONS CAGES 10 DEG, 15 DEG, 10 DEG, 0 DEG, MEDIUM AND LONG. 12 MM AND 10 MM WIDTH -ARTHROCELL -MAGNATOS -IFACTOR -AUTOGRAFT Anesthesia: GETA Surgeon: Jluis Yao [employer] Laboratory Assistant #1: Abel Blackman (WAS PRESENT AND ASSISTED WITH ALL ASPECTS OF THE CASE FROM POSITION TO CLOSURE) Estimated Blood Loss (ml): 1,000 IV fluids (ml): 2,500 Urine output (ml): 700 Pathology: none sent Condition: stable Disposition: PACU Indications for Procedure: Mr. Ahles is presenting for evaluation of low back and bilateral lower extremity pain, bilateral lower extremity numbness, tingling, and weakness. It was my pleasure to have seen and examined Mr. Hester. In our visit today we have had a chance to go over subjective complaints, physical examination findings and treatments including the natural course history without intervention and various interventional options. The patients imaging demonstrates: [facility] of the Thoracic & Lumbar Spine: Images reviewed with pt. L1-S1 sondylosis severe, with vacuum disc at each level. Grade I spondylolisthesis of L3-4 and L4-5 noted on these films. No fractrures notes. Severe disc degeneration, collapse, facet arthropathy, overgrowth and hypertrophy all contribute to severe stenosis at these levels along with flattened LL. MRI completed at [facility] on 12/05/2022 of Lumbar Spine: - Imaging is re-reviewed today with the patient. Severe spondylosis throughout the lumbar spine. The span from L1 to S1. There is flattening of the normal lumbar lordosis secondary to disc collapse at every level. There is retrolisthesis of L1 and L2 L2 L3 and L3-L4. There is anterior listhesis of L4 and L5 with moderate to severe central stenosis at L4-L5. There is severe spondylosis L5-S1 with bilateral foraminal stenosis which is severe. Very degrees of foraminal stenosis throughout the lumbar spine mostly severe. T horacic or lumbar junction shows kyphotic alignment. Boggy facets throughout the lumbar spine no acute fracture. XRAY of the Lumbar Multiview (AP, Lateral, Flexion, Extension) with AP pelvis; 5 views taken at [facility] on 11/24/22: - Images re-reviewed with the patient in office today. Severe multilevel spondylitic degenerative changes with preserved alignment. Multilevel diminished disc height. Chronic compression fracture of L1 vertebral body with 10% height loss. Multilevel opposing endplate changes with osteophytosis. Multilevel bilateral foraminal stenosis. No acute osseous abnormalities. AP Pelvis: The visualized sacrum and iliac wings are within normal limits. On physical exam, Mr. Hester demonstrates: A sharp, shooting pain throughout the lumbar spine that radiates down into the bilateral lower extremities with any activity or movement. He denies experiencing any significant low back pain when sitting or at rest. The patient notes that his left leg pain is much more severe than the right at this time. He states his lower extremity pain is associated with numbness and tingling. The patient notes increased weakness throughout the bilateral lower extremities that is more significant upon the left side. The patient states that his symptoms worsen after prolonged standing or after any bending, lifting, or twisting motions. The patient notes that his symptoms have started to become intractable. The patient reports experiencing severe sleep disturbances related to his ongoing pain and associated symptoms. I have explained to the patient that as their condition progresses it will cause further neurological deficits and eventual paralysis. Based on the patients imaging, physical exam, and the rapid progression and disabling nature of their symptoms, at this time I recommend surgery in the form of a: [id number] decompression and fusion. I discussed the risk and benefits of this procedure at length with Mr. Hester. The patient agreed to considered pursuing the procedure abovementioned. Prior to surgery, she should follow up with her PCP (Cardio, ID, IM etc) for clearance. Questions were invited and answered, and the patient wishes to proceed as outlined below. Currently, I am recommendin.[id number] decompression and fusion Description of Procedure: [id number] Decompression and fusion BRITTANY The patient was seen and examined in the preoperative area. All preoperative protocols were followed. Informed consent was obtained, risks and benefits of the procedure were discussed at length. Risks including bleeding infection damage to the surrounding tissue and risk of re-operation were discussed with the patient. Risk of anesthesia up to and including was discussed with the patient. These are outlined in the risk review. They were willing to accept these risks and all the risks of surgery. The patient was given a weight-based dose of antibiotics in the form of 3 g Ancef. The patient was seen and evaluated by the anesthesia team who deemed them fit for surgery. The site was marked, the patient was willing to proceed with the procedure. The patient was transferred to the operative suite by the Department of anesthesia. They were then drifted off to sleep by the department anesthesia and GETA was performed. The patient tolerated this well. Hart catheter was placed by nursing staff, a-traumatically. Once confirmation of lines and ventilation the patient was transferred to a prone Trios spine table very carefully. The head was secured and stable. Xray confirmed alignment. All bony prominences including wrists, elbows, axilla, chest, hips, and thighs, and feet were padded very well. Special attention was paid to the genitalia, and these were padded accordingly. SCDs were placed on bilateral lower extremities and were connected. Arms were well padded and placed at 90/90 up and out and well padded. Safety strap and tape placed on the patient. Once in position, again we confirmed good ventilation capabilities and that lines were running appropriately. The patients lumbosacral pelvic was then exposed. Hair was removed for incision. 1010s were placed outlining the incision site. Standard alcohol was used to clean the incision site and allowed to dry. C-arm was used to bio-sarah the patient and confirm level for incision which was marked with a skin marker. Operative briefing was performed with all teams and everyone in agreement to proceed. The patient was then prepped and draped in a normal sterile fashion. Timeout was then performed, and all parties agreed with the procedure to be performed. Midline skin incision was then made over the previously bookmarked area and dissection taken down to the lumbosacral fascia which was identified and cleaned with a pardo. Once midline was identified, fasciotomy was made over the SP of [id number]. Subperiosteal dissection was then taken down over the lamina and facet joints and TPs were exposed and trough made posterolateral. TPs were then decorticated L1-S1 and sacral ala with a high speed ya for lateral fusion. Dissection was taken out over the sacrum to the pelvis. SI joint identified and modified Luna starting point for pelvic screws identified as well. Retractors placed. Wound was irrigated and lateral image with penfield 4 placed at the pars of L4 confirmed levels for operation. SP clamp was then placed for the [employer] navigation tracker and secured at L2 for the first set of screws. The wound was then filled with NSS and Z-drape placed. A 3D Zhiem spin was then obtained and registered. Once confirmation of accuracy screws were then placed from T10-L2 using navigation. Navigated high speed ya was used to make a submersible pilot hole followed by a navigated awl-tap passed through the pedicle into the body. A ball tip probe then confirmed within the pedicle. Globus Screws then measured and placed using a navigated screwdriver. After screws were placed from T10-L2 the tracker was replaced at S1 and a second 3D Ziehm spin was then obtained and registered. Once confirmation of accuracy screws were then placed from L3-Pelvis using navigation. AP image confirmed safe placement of screws. Screws were placed similarly as described above. For pelvic screws, starting point was selected with a navigated ya and starting point made. Then a navigated awl was passed through the corridor above the sciatic notch within bone. Virtual screw was dropped and a feeler was then used to confirm within bone. Then a navigated ups driver was used to place screws in the pelvis b/l. Screws were confirmed to be safe, stabilizing and fusing the SIJ on AP/LAT/INLET/OUTLET films. We then irrigated the wound and tested screws. All screws tested > 20 mA except for L5 on the left which was 18 mA. B/L SIJ were then decorticated with high speed ya for fusion and fusion bed. We then proceeded to decompression and interbody placement. Starting at L5-S1, bilateral laminectomy, complete facetectomy and foraminotomies were performed using high speed bur, Kerrison rongure. There was exuberant bone formation, osteophytes and scar tissue surrounding these joints as well as the dura. Once exposed the neural elements were protected and an intradiscal osteotomy, 3 column, was performed for deformity correction at L5- S1. Osteotome was used to make osteotomy in L5 and S1 and for complete disc removal. This was passed into the anterior 1/3 of L5. This allowed for loosening of this level and correction. Down biting curette was used to release the disc annulus and PLL across completely. This allow allowed for disc removal and cartilage removal followed by pituitary. Cage was then selected based on shaving and trials. Bleeding endplates were encountered and cartilage removed. Autograft, allograft were then placed anterior to the cage. The cage was then impacted into place under lateral imaging while protecting neural elements. The cage was then expanded into position and showed good lift and correction. Shinto of lordosis and height achieved. Meticulous hemostasis then performed. Cage was backfilled with ifactor, autograft and arthrocell and the area irrigated. We then proceeded to L4-5. At L4-5, bilateral laminectomy, complete facetectomy and foraminotomy were performed as described above. Again, exuberant scar tissue and bone formation was encountered and at this level. There was also a large disc osteophyte complex that was identified once disc space was found. The dura was carefully dissected off this anteriorly and b/l. Once encountered, the disc space was then accessed in a similar fashion and neural elements protected. Once completed and complete discectomy performed there was good mobility at this level. Cage was then sized and selected. Trial was placed and confirmed on AP. Autograft and allograft was then placed anterior in the disc space and the cage was then inserted and impacted into place under lateral. AP image, as before, was taken to ensure midline placement. The cage was then expanded into position. The wound was irrigated. Meticulous hemostasis then performed, and attention turned to L3-4. At L3-4 again bilateral laminectomy, complete facetectomy and foraminotomy were performed along with intradiscal 3 column osteotomy for deformity correction. This was her worst level of deformity and differential cage placement was used as well to help with correction. The neural elements were less scared at this level; however, it was very unstable. The elements were then protected, and disc space accessed. Sequential shaving performed until desired height and lordosis. Cage selected, and graft placed anterior to the cage within the disc space. Cage was then placed under lateral image, expanded and had good height, lordosis and deformity correction. The wound was irrigated, and meticulous hemostasis performed once again. We then proceeded to the L2-3 level. At L2-3 again bilateral laminectomy, complete facetectomy and foraminotomy were performed. Neural elements were mobilized and then protected, and disc space accessed. Sequential shaving performed until desired height and lordosis. Cage selected, and graft placed anterior to the cage within the disc space. Cage was then placed under lateral image, expanded and had good height, lordosis and deformity correction. The wound was irrigated, and meticulous hemostasis performed once again. AP imaging confirmed good placement of all cages and good reduction and coronal balance restored. Screws all in a good position. Attention was then drawn to ramesh placement and further reduction. Rods were selected, measured, cut and bent to appropriate lordosis. They were then secured into pelvic screws b/l. Sequential reduction then done into each screw and set screw placed. Set screws were then final tightened and lateral image showed good lordosis reduction with increase around 15-20 deg from starting. Once rods were secured, cross links were selected and placed and final tightened. The wound was then irrigated with 3L Ancef irrigation, 3L gentamicin irrigation and 3L NSS. Surgicel was then placed on the dura, which was inspected and had no injury. Then, in the posterolateral gutter and bilateral SI joints, was placed, MagnatOs, Autograft and allograft. This was impacted into position and surgical placed over it. 2g Vanco powder was then placed deep in the wound. Two deep, subfascial drains were placed and secured with a stitch. We then proceeded with layered closure. #1 PDS placed in the deep fascia followed by a running unidirectional 0 stratafix. 0 Vicryl placed in the deep subq, 2-0 placed in the superficial subq and rocio placed in the skin. The wound edges approximated very well. The wound was then cleaned with ETOH and dressed with optifoam dressing, drain sponges and tegaderms. Drains sewed into position. IONM confirmed no changes. The patient was then transferred off the [facility] spine table to their hospital bed a-traumatically. Drains continued to hold suction. The patient was then extubated and transferred to the ICU in stable condition having tolerated the procedure with no complications.
[2023-05-11] MEDS: NOREPINEPHRINE 4 MG in SODIUM CHLORIDE 0.9% 250 ML IV ONE (16:35)
[2023-05-11 17:30] LABS: ABG Base Excess -4.8 mmol/L; ABG HCO3 22 mmol/L (21-25); ABG Oxygen Saturation 99.7 % (94-97); ABG PCO2 45 mmHg (35-45); ABG PH 7.29 (7.35-7.45); ABG PO2 195 mmHg (83-108); ABG TCO2 23 mmol/L (19-24)
[2023-05-11] MEDS: SODIUM BICARB 8.4% 50 ML VIAL (1 MEQ/ML) IVPB ONE (17:37)
[2023-05-11 17:38] LABS: Anisocytosis Moderate; Basophils % (A) 0 %; Eosinophils % (A) 0 %; HCT 25.7 % (39.0-53.0); Hypochromasia Marked; Lymphocytes # (A) 0.5 k/uL (1.0-4.8); Lymphocytes % (A) 5 %; MCH 22.6 pg (25.0-35.0); MCHC 30.6 g/dL (31.0-37.0); Mean Platelet Volume 7.3; Microcytosis Marked; Monocytes # (A) 0.6 k/uL (0-1.0); Monocytes % (A) 6 %; Neutrophils % (A) 89 %; Poikilocytosis Moderate; RBC 3.48 m/uL (4.30-5.90); RDW 21.1 % (11.5-15.5); WBC 10.1 k/uL (3.8-10.6)
[2023-05-11 17:48] LABS: HGB 7.9 gm/dL (13.0-17.5)
[2023-05-11 17:49] LABS: INR 1.1 (<1.2); Partial Thromboplastin Time 22.4 sec (22.0-30.0); Platelet Count 172 k/uL (150-450); Prothrombin Time 11.6 sec (10.0-12.5)
[2023-05-11] MEDS: NOREPINEPHRINE 4 MG in SODIUM CHLORIDE 0.9% 250 ML IV SCH (18:10)
[2023-05-11] MEDS ORDERED: IPRATROPIUM-ALBUTEROL 3 ML NEB INHALATION PRN (18:43)
[2023-05-11] MEDS ORDERED: NALOXONE 0.4 MG/ML 1 ML VIAL IV PRN (18:43)
--- NOTE | 2023-05-11 18:46 | XR ---
EXAMINATION TYPE: XR chest 1V portable DATE OF EXAM: 05/11/2023 Comparison: None Clinical History: 67-year-old male post central line Findings: Right CVC tip at the cavoatrial junction. No appreciable pneumothorax. Posterior midline skin rocio with a partially visualized thoracolumbar fusion hardware. Heart mildly enlarged. Mild interstitial and perihilar density. Old healed right-sided rib fracture 4 days. Possible trace right pleural effus ion. Impression: 1. Right CVC tip at the cavoatrial junction. No appreciable pneumothorax. 2. Correlate for mild CHF with pulmonary vascular congestion. 3. Possible trace right effusion with adjacent atelectasis and/or consolidation.
[2023-05-11] MEDS: SODIUM CHLORIDE 0.9% 1,000 ML IV SCH (18:49)
[2023-05-11] MEDS: SODIUM CHLORIDE 0.9% 1,000 ML IV ONE (18:49)
[2023-05-11] MEDS: HYDROmorphone 0.5 MG/0.5 ML SYRINGE IVP PRN (18:50)
[2023-05-11] MEDS: droPERidol 5 MG/2 ML VIAL IVP ONE (19:10)
[2023-05-11] MEDS: IPRATROPIUM-ALBUTEROL 3 ML NEB INHALATION SCH (20:21)
[2023-05-11] MEDS: HYDROcodone/APAP 7.5-325MG 1 EACH TAB PO PRN (20:40)
[2023-05-11 20:48] LABS: Anisocytosis Moderate; HCT 24.3 % (39.0-53.0); HGB 7.5 gm/dL (13.0-17.5); Hypochromasia Marked; MCH 22.7 pg (25.0-35.0); MCHC 30.8 g/dL (31.0-37.0); MCV 73.8 fL (80.0-100.0); Microcytosis Marked; Platelet Count 186 k/uL (150-450); Poikilocytosis Moderate; RBC 3.29 m/uL (4.30-5.90); WBC 10.4 k/uL (3.8-10.6)
[2023-05-11] MEDS: CYCLOBENZAPRINE 5 MG TAB PO PRN (21:02)
[2023-05-11] MEDS: GABAPENTIN 300 MG CAP PO SCH (21:10)
[2023-05-11] MEDS: HYDROcodone/APAP 10-325MG 1 EACH TAB PO PRN (23:56)
--- NOTE | 2023-05-12 00:16 | P.CONS ---
History of Present Illness - Reason for Consult Consult date: 05/12/23 - History of Present Illness Patient is a 67-year-old male with a PMH of peripheral arterial disease status post left common iliac artery stenting, tobacco abuse, and COPD who was admitted for an elective lumbosacral osteotomy for deformity correction. The patient underwent the procedure earlier today and was seen postoperatively in the medical ICU. The patient reportedly had 1 L of estimated blood loss and was given 2 units of PRBCs postoperatively. At time of interview, the patient reported ongoing 8 out of 10 diffuse back pain. He denied experiencing numbness, tingling, or weakness. Also denied experiencing fever, chills, chest pain, sore throat, shortness of breath, nausea, vomiting. Review of systems: Pertinent positives and negatives as discussed in HPI, a complete review of systems was performed and all other systems are negative. Physical examination: Vital signs reviewed General: non toxic, no distress, appears at stated age, normal weight Derm: no unusual rashes/lesions, warm Head: atraumatic, normocephalic, symmetric Eyes: EOMI, no lid lag, anicteric sclera, pupils equal round reactive to light ENT: Nose and ears atraumatic Neck: No cervical lymphadenopathy, trachea midline, supple Mouth: no lip lesion, mucus membranes moist Cardiovascular: S1S2 reg, no murmur, positive dorsalis pedis pulse bilateral, no edema Lungs: CTA bilateral, no rhonchi, no rales, no accessory muscle use Abdominal: soft, nontender to palpation, no guarding Ext: muscle strength 5 out of 5 in all 4 extremities grossly, no gross muscle atrophy, no contractures,, postsurgical back dressing in place clean and dry Neuro: CN II-XI grossly intact, no gross focal neuro deficits Psych: Alert, oriented, appropriate affect Assessment: Blood loss anemia secondary to intraoperative bleeding status post 2 units PRBCs Chronic conditions: PAD, tobacco abuse, COPD Data Review: Laboratory evaluation was reviewed with hemoglobin 7.9 following 2 units PRBCs transfusion. Most recent hemoglobin down to 7.5. POC glucose 150. Plan: Continue to monitor CBC Resume home medications Defer the resumption of aspirin and DVT prophylaxis to primary surgery service in setting of blood loss anemia We appreciate this opportunity to be involved in this patient's care. We will follow the patient with you. For any further questions, please not hesitate to contact the sound inpatient team. Past Medical History Past Medical History: COPD, GERD/Reflux, Osteoarthritis (OA), Vascular Disorder Additional Past Medical History / Comment(s): left foot fx-ok ,pain left leg- worse left hip( possible back related) see orthopedic DR with MRI scheduled today,hx colon polyps, trouble swallowing. some vomiting. pt states he does not use his inhalers. Pt rescheduled due to diarrhea. pt states lasted a day feels fine now. was not asked to see PCP. History of Any Multi-Drug Resistant Organisms: MRSA Year Discovered:: approx 5-10 yrs ago (pt unsure-already in computer) MDRO Source:: unk site Past Surgical History: Orthopedic Surgery Additional Past Surgical History / Comment(s): thumb and finger repair, colonoscopy Past Anesthesia/Blood Transfusion Reactions: No Reported Reaction Smoking Status: Current every day smoker - Past Family History Mother Family Medical History: No Reported History Father Family Medical History: Myocardial Infarction ([place]) Medications and Allergies Home Medications Medication Instructions Recorded Confirmed Type Acetaminophen/Diphenhydramine 1 tab PO HS 01/13/22 05/08/23 History [Tylenol PM 500-25mg] Omeprazole [PriLOSEC] 20 mg PO DAILY 01/13/22 05/08/23 History QUEtiapine FUMARATE [QUEtiapine 100 mg PO BID 01/13/22 05/08/23 History FUMARATE ER] Thiamine [Vitamin B-1] 100 mg PO BID 01/13/22 05/08/23 History Aspirin EC [Ecotrin Low Dose] 81 mg PO DAILY 90 Days #90 tab 01/15/22 05/08/23 R x Albuterol Inhaler [Ventolin Hfa 2 puff INHALATION Q4HR PRN 01/24/23 05/08/23 History Inhaler] Budesonide/Formoterol Fumarate 2 puff INHALATION BID PRN 01/24/23 05/08/23 History [Symbicort 160-4.5 Mcg Inhaler] Gabapentin 300 mg PO TID 04/26/23 05/08/23 History Sucralfate [Sucralfate Oral Susp] 10 ml PO DIRECTED 04/26/23 05/08/23 History Allergies Allergy/AdvReac Type Severity Reaction Status Date / Time No Known Allergies Allergy Verified 05/11/23 07:43 Physical Exam Vitals: Vital Signs Temp Pulse Pulse Resp BP BP Pulse Ox 02/16/24 00:10 105 H 05/11/23 23:56 101 H 05/11/23 23:00 112 H 23 97/68 95 05/11/23 22:45 110 H 20 106/78 92 L 05/11/23 22:30 106 H 19 102/76 97 05/11/23 22:15 96 16 113/75 96 05/11/23 22:00 99 17 99/77 91 L 05/11/23 21:45 100 15 100/70 92 L 05/11/23 21:30 97 14 139/69 88 L 05/11/23 21:15 100 11 L 104/65 94 L 05/11/23 21:00 93 15 117/86 94 L 05/11/23 20:45 105 H 15 134/70 91 L 05/11/23 20:33 97 05/11/23 20:30 85 19 111/63 95 05/11/23 20:21 105 H 05/11/23 20:15 85 13 100/78 88 L 05/11/23 20:00 98.0 F 102 H 17 106/66 89 L 05/11/23 19:45 83 14 95/48 89 L 05/11/23 19:30 92 14 92/65 94 L 05/11/23 19:15 92 13 90/70 95 05/11/23 19:00 89 11 L 92/46 96 05/11/23 18:45 88 14 97/69 97 05/11/23 18:30 84 16 95/66 94 L 05/11/23 18:15 96.9 F L 75 18 82/64 90 L 05/11/23 18:06 84 22 05/11/23 17:56 72 18 116/59 99 05/11/23 17:35 68 18 116/85 99 05/11/23 17:20 67 103/76 05/11/23 17:15 68 18 92/60 99 05/11/23 17:09 79/60 05/11/23 17:00 65 18 114/68 99 05/11/23 16:45 97.0 F L 72 18 130/79 94 L 05/11/23 08:20 106 H 16 124/78 95 05/11/23 07:48 95.9 F L 124 H 20 127/61 94 L Intake and Output 05/11/23 05/11/23 05/12/23 14:59 22:59 06:59 Intake Total 3336 2690.826 453 Output Total 2410 85 Balance 3336 280.826 368 Intake: IV 3052 1819 3 Arterial Pressure Bag 15 3 Sodium Chloride 0.9% 1, 1000 000 ml @ 999 mls/hr IV . Q1H1M [facility] Rx#:[id number] Intake, IV Titration 589.826 100 Amount Norepinephrine 4 mg In 39.826 Sodium Chloride 0.9% 250 ml @ 0.03 MCG/KG/MIN 10. 961 mls/hr IV .[id number] [facility] Rx#:[id number] Sodium Chloride 0.9% 1, 500 100 000 ml @ 100 mls/hr IV . Q10H [facility] Rx#:[id number] ceFAZolin 2 gm In Sodium 50 Chloride 0.9% 50 ml @ 100 mls/hr IVPB Q8H [facility] Rx#: [id number] Tube Feeding 350 Blood Product 284 282 Rc Pheresis 2 As3 Unit 0 282 [id number] Rc Pheresis 2 As3 Unit 284 [id number] Output: Drainage 70 Back 70 Urine 1340 85 Estimated Blood Loss 1000 Other: Voiding Method Indwelling Catheter Indwelling Catheter Weight 95.9 kg ABP, PAP, CO, CI - Last 8 Hours Arterial Blood Pressure 85/76 Arterial Blood Pressure 86/71 Arterial Blood Pressure 82/72 Arterial Blood Pressure 76/39 Results CBC & Chem 7: 05/11/23 20:30 Labs: Abnormal Lab Results - Last 24 Hours (Table) 05/11/23 05/11/23 05/11/23 Range/Units 08:05 08:14 17:22 RBC 3.48 L (4.30-5.90) m/uL Hgb 7.9 L D (13.0-17.5) gm/dL Hct 25.7 L (39.0-53.0) % MCV 74.0 L D (80.0-100.0) fL MCH 22.6 L (25.0-35.0) pg MCHC 30.6 L (31.0-37.0) g/dL RDW 21.1 H (11.5-15.5) % Neutrophils # 9.0 H (1.3-7.7) k/uL Lymphocytes # 0.5 L (1.0-4.8) k/uL ABG pH (7.35-7.45) ABG pO2 (83-108) mmHg ABG O2 Saturation (94-97) % POC Glucose (mg/dL) 150 H (70-110) mg/dL Crossmatch See Detail 05/11/23 05/11/23 Range/Units 17:26 20:30 RBC 3.29 L (4.30-5.90) m/uL Hgb 7.5 L (13.0-17.5) gm/dL Hct 24.3 L (39.0-53.0) % MCV 73.8 L (80.0-100.0) fL MCH 22.7 L (25.0-35.0) pg MCHC 30.8 L (31.0-37.0) g/dL RDW 21.0 H (11.5-15.5) % Neutrophils # (1.3-7.7) k/uL Lymphocytes # (1.0-4.8) k/uL ABG pH 7.29 L (7.35-7.45) ABG pO2 195 H (83-108) mmHg ABG O2 Saturation 99.7 H (94-97) % POC Glucose (mg/dL) (70-110) mg/dL Crossmatch
[2023-05-12] MEDS: QUEtiapine 100 MG TAB PO SCH (00:37)
[2023-05-12 06:35] LABS: Anisocytosis Moderate; Basophils % (A) 0 %; Eosinophils % (A) 0 %; HCT 21.8 % (39.0-53.0); Hypochromasia Marked; Lymphocytes # (A) 1.1 k/uL (1.0-4.8); Lymphocytes % (A) 10 %; MCH 22.2 pg (25.0-35.0); Mean Platelet Volume 7.5; Microcytosis Marked; Monocytes % (A) 9 %; Neutrophils # (A) 8.4 k/uL (1.3-7.7); Neutrophils % (A) 79 %; Platelet Count 141 k/uL (150-450); Poikilocytosis Moderate; RBC 2.95 m/uL (4.30-5.90); RDW 21.2 % (11.5-15.5); WBC 10.7 k/uL (3.8-10.6)
[2023-05-12 06:49] LABS: African American GFR (CKD) >90 (>60 ml/min/1.73 sqM); Anion Gap 3 mmol/L; Blood Urea Nitrogen 9 mg/dL (9-20); Calcium 7.1 mg/dL (8.4-10.2); Carbon Dioxide 24 mmol/L (22-30); Chloride 110 mmol/L (98-107); Glucose 116 mg/dL (74-99); Non-African American GFR(CKD) >90 (>60 ml/min/1.73 sqM); Potassium 4.2 mmol/L (3.5-5.1); Sodium 137 mmol/L (137-145)
[2023-05-12 07:09] LABS: HGB 6.5 gm/dL (13.0-17.5)
[2023-05-12] MEDS ORDERED: LORazepam 2 MG/ML INJ IV PRN ×2 (08:09)
[2023-05-12] MEDS: THIAMINE 100 MG TAB PO SCH (08:18)
[2023-05-12] MEDS: SENNOSIDES-DOCUSATE SODIUM 1 EACH TAB PO SCH (08:18)
[2023-05-12] MEDS: NICOTINE 21MG/24HR PATCH TRANSDERM SCH (08:18)
[2023-05-12] MEDS: PANTOPRAZOLE 40 MG/10 ML VIAL IV SCH (08:19)
[2023-05-12] MEDS: DEXAMETHASONE SOD PHOSPHATE 10 MG/ML 1 ML VIAL IVP STA (08:19)
[2023-05-12] MEDS: GABAPENTIN 300 MG CAP PO SCH (08:53)
--- NOTE | 2023-05-12 08:54 | FL ---
EXAMINATION TYPE: FL guidance operating room, XR lumbar spine 2 or 3V Intraoperative/procedural fluor oscopic services were provided. Total fluoroscopy time is 1 minute 20 seconds seconds with a total of 9 submitted images to PACS. Please see the operative/procedural note for further details. DAP: 12.464 Gycm2
[2023-05-12] MEDS: THIAMINE 100 MG/ML 2 ML VIAL IM STA (09:43)
[2023-05-12] MEDS: FOLIC ACID 1 MG TAB PO SCH (09:43)
--- NOTE | 2023-05-12 10:03 | P.PN ---
Subjective Progress Note Date: 05/12/23 Principal diagnosis: Severe lumbar spondylosis with stenosis Bilateral lower extremity radiculopathy Patient seen and examined this morning. Patient is resting comfortable in bed in the ICU. Patient is complaining of moderate back pain that is radiating across his lower back. Medications have been adjusted. Patient's current hemoglobin is 6.5, additional unit of RBCs has been ordered to be transfused. Patient does request for nicotine patch, this will be ordered. Patient denies any numbness or tingling to the bilateral lower extremities. Patient has not been up since procedure, due to hypotension, postop anemia, and pain. TLSO brace is at bedside. It is appropriate to wait on physical therapy to be getting patient up and about until patient's hemoglobin and blood pressure are stable. Continue with bed exercises. Surgical incision to the lumbar spine, Hemovac is present. Continue to encourage patient to use incentive spirometer while awake. Patient currently denies any shortness of breath, dizziness, nausea or vomiting. Objective - Vital Signs Vital signs: Vital Signs Temp 97.9 F 05/12/23 04:00 Pulse 98 05/12/23 06:00 Resp 15 05/12/23 06:00 BP 83/60 05/12/23 06:00 Pulse Ox 95 05/12/23 06:00 FiO2 Intake & Output 05/11/23 05/12/23 05/12/23 18:59 06:59 18:59 Intake Total 4526.096 2855.37 Output Total 1850 1470 Balance 2676.096 1385.37 Weight 95.9 kg 101 kg Intake: IV 3859 1039 Arterial Pressure Bag 3 39 Sodium Chloride 0.9% 1, 1000 000 ml @ 999 mls/hr IV . Q1H1M [facility] Rx#:[id number] Intake, IV Titration 614.937 4797.37 Amount Norepinephrine 4 mg In 1.096 116.37 Sodium Chloride 0.9% 250 ml @ 0.03 MCG/KG/MIN 10. 961 mls/hr IV .[id number] [facility] Rx#:[id number] Sodium Chloride 0.9% 1, 100 1300 000 ml @ 100 mls/hr IV . Q10H [facility] Rx#:[id number] ceFAZolin 2 gm In Sodium 50 Chloride 0.9% 50 ml @ 100 mls/hr IVPB Q8H [facility] Rx#: [id number] Tube Feeding 350 Blood Product 566 Rc Pheresis 2 As3 Unit 282 [id number] Rc Pheresis 2 As3 Unit 284 [id number] Output: Drainage 270 Back 270 Urine 850 1200 Estimated Blood Loss 1000 Other: Voiding Method Indwelling Catheter Indwelling Catheter ABP, PAP, CO, CI - Last Documented Arterial Blood Pressure 206/206 - Exam Physical Examination General: The patient is awake and alert, in no acute distress Skin: Skin is warm and dry with no obvious rashes or lesions. Surgical incision to the thoracolumbar spine, dressing is clean dry and intact with Hemovac present. Eye: Pupils are equal, round and reactive to light, extra-ocular movements are intact; there is normal conjunctiva bilaterally. Neck: The neck is supple, there is no tenderness and ROM intact. Cardiovascular: There is a regular rate and rhythm. No murmur, rub or gallop is appreciated. Respiratory: Lungs are clear to auscultation, respirations are non-labored, breath sounds are equal. Gastrointestinal: Soft, non-distended, non-tender abdomen. Back: There is moderate tenderness to palpation in the paralumbar region, due to surgery. There is no obvious deformity . Musculoskeletal: ROM limited secondary to pain and stiffness from surgical procedure. Muscle strength in all major muscle groups of bilateral upper extre mities 5/5, bilateral lower extremities 4/5. Neurological: CN 2-12 intact. There are no obvious motor or sensory deficits. Movement and coordination equal and intact. Sensory exam to light touch intact C5-T1 and intact from L2-S1. Reflexes 2/4 in bilateral upper and lower extremities. Negative Hoffmans, babinski, and clonus signs. Psychiatric: Cooperative, appropriate mood & affect, normal judgment. - Labs CBC & Chem 7: 05/12/23 06:06 05/12/23 06:06 Labs: Abnormal Lab Results - Last 24 Hours (Table) 05/11/23 05/11/23 05/11/23 Range/Units 08:05 08:14 17:22 WBC (3.8-10.6) k/uL RBC 3.48 L (4.30-5.90) m/uL Hgb 7.9 L D (13.0-17.5) gm/dL Hct 25.7 L (39.0-53.0) % MCV 74.0 L D (80.0-100.0) fL MCH 22.6 L (25.0-35.0) pg MCHC 30.6 L (31.0-37.0) g/dL RDW 21.1 H (11.5-15.5) % Plt Count (150-450) k/uL Neutrophils # 9.0 H (1.3-7.7) k/uL Lymphocytes # 0.5 L (1.0-4.8) k/uL ABG pH (7.35-7.45) ABG pO2 (83-108) mmHg ABG O2 Saturation (94-97) % Chloride (98-107) mmol/L Glucose (74-99) mg/dL POC Glucose (mg/dL) 150 H (70-110) mg/dL Calcium (8.4-10.2) mg/dL Crossmatch See Detail 05/11/23 05/11/23 05/12/23 Range/Units 17:26 20:30 06:06 WBC 10.7 H (3.8-10.6) k/uL RBC 3.29 L 2.95 L (4.30-5.90) m/uL Hgb 7.5 L 6.5 L* (13.0-17.5) gm/dL Hct 24.3 L 21.8 L (39.0-53.0) % MCV 73.8 L 74.0 L (80.0-100.0) fL MCH 22.7 L 22.2 L (25.0-35.0) pg MCHC 30.8 L 30.0 L (31.0-37.0) g/dL RDW 21.0 H 21.2 H (11.5-15.5) % Plt Count 141 L (150-450) k/uL Neutrophils # 8.4 H (1.3-7.7) k/uL Lymphocytes # (1.0-4.8) k/uL ABG pH 7.29 L (7.35-7.45) ABG pO2 195 H (83-108) mmHg ABG O2 Saturation 99.7 H (94-97) % Chloride (98-107) mmol/L Glucose (74-99) mg/dL POC Glucose (mg/dL) (70-110) mg/dL Calcium (8.4-10.2) mg/dL Crossmatch 05/12/23 Range/Units 06:06 WBC (3.8-10.6) k/uL RBC (4.30-5.90) m/uL Hgb (13.0-17.5) gm/dL Hct (39.0-53.0) % MCV (80.0-100.0) fL MCH (25.0-35.0) pg MCHC (31.0-37.0) g/dL RDW (11.5-15.5) % Plt Count (150-450) k/uL Neutrophils # (1.3-7.7) k/uL Lymphocytes # (1.0-4.8) k/uL ABG pH (7.35-7.45) ABG pO2 (83-108) mmHg ABG O2 Saturation (94-97) % Chloride 110 H (98-107) mmol/L Glucose 116 H (74-99) mg/dL POC Glucose (mg/dL) (70-110) mg/dL Calcium 7.1 L (8.4-10.2) mg/dL Crossmatch Assessment and Plan Assessment: Postop day 1: [id number] decompression and fusion Severe lumbar spondylosis with stenosis Bilateral lower extremity radiculopathy Plan: -Appreciate test consultant and team management. -Continue to monitor hemoglobin, transfuse one unit RBC -Activity: Ambulate QID, OOB all meals, up and about, limit lifting bending twisting to less than 5 lbs. Use walker or cane if needed for stability. -Daily PT/OT, increase ambulation strength and balance. -Brace when up and about, not needed in bed or chair -Pain control: Adequate at this time -Meds: reviewed -GI ppx: senna, Miralax -DC lerma when up and about, bedside commode if needed -DVT PPX: OK to restart Heparin tonight -Hygiene: Shower today. Maintain dressing clean and dry. Meticulous cleaning after BMs away from the incision site -Drains: Maintain for now. Continue to monitor and record output q shift. -Encourage IS 10x/hr -Dispo: Clinically pending *I reviewed and discussed this case with my attending Dr. Yao, whom has reviewed this chart and films and is in agreement with assessment and plan of care as outlined above. I have personally seen and examined the patient, performed the documentation and the assessment and plan as written. Number of minutes spent on the visit: 20m.
[2023-05-12] MEDS: LACTATED RINGERS 1,000 ML IV SCH (11:40)
--- NOTE | 2023-05-12 11:50 | P.PN ---
Subjective Progress Note Date: 05/12/23 Patient is a 67-year-old male with a PMH of peripheral arterial disease status post left common iliac artery stenting, tobacco abuse, and COPD who was admitted for an elective lumbosacral osteotomy for deformity correction. The patient underwent the procedure on 05/11. The patient reportedly had 1 L of estimated blood loss and was given 2 units of PRBCs postoperatively. 05/12 Patient was seen and examined in the ICU. He reports 10/10 pain in his lumbar spine. Reports drinking 4 beers daily. He has no other complaints today. CBC WBC 10.7, Hg 6.5, Hct 21.8, MCV 74, Plt 141. BMP Cl 110, glu 116, Ca 7.1. Orthopedic surgery note reviewed, OK to start Heparin SQ tonight. General: non toxic, no distress, appears at stated age Derm: warm, dry Head: atraumatic, normocephalic, symmetric Eyes: EOMI, no lid lag, anicteric sclera Mouth: no lip lesion, mucus membranes moist Cardiovascular: S1S2 tachycardic, no murmur Lungs: CTA bilateral, no rhonchi, no rales , no accessory muscle use Ext: no gross muscle atrophy, no edema, no contractures Neuro: no focal neuro deficits Psych: Alert, oriented, appropriate affect Based on my assessment of this patient, this patient meets a high complexity level of care. Patient is POD 1 lumbosacral osteotomy with severe exacerbation or progression of disease which poses a threat to life or bodily function. Acute blood loss anemia: Expected result of surgery. Transfuse 1 unit PRBC today. Repeat Hg ordered for this afternoon. h/o EtOH abuse: CIWA protocol. Ativan PRN for alcohol withdrawal per CIWA scale. Leukocytosis: Likely reactive. Also on steroids. Monitor fever profile. No signs of active infection. Thrombocytopenia: Likely due to EtOH abuse. Monitor while patient is on Heparin SQ. Chronic conditions: PAD, tobacco abuse, COPD CODE STATUS: FULL CODE DVT Prophylaxis: SCD GI Prophylaxis: Protonix Designated medical POA if patient is not able to make medical decisions for themselves: I have reviewed the following internal control consultant notes: Orthopedic surgery note. I have reviewed the results of the following tests: CBC, BMP. I have ordered the following tests: CBC. Iron studies. I have discussed the care of this patient with the following independent historian: Discussed with RN. I have independently interpreted the following test below: I have discussed the management of this patient with the following physician: This patient meets a high level of care for the following reasons: Patient requires IV narcotics which requires intensive monitoring for respiratory depression. Patient requires IV ativan which requires intensive monitoring of respiratory status. Objective - Vital Signs Vital signs: Vital Signs Temp 98.5 F 05/12/23 10:30 Pulse 105 H 05/12/23 10:30 Resp 16 05/12/23 10:30 BP 103/69 05/12/23 10:30 Pulse Ox 94 L 05/12/23 10:30 FiO2 Intake & Output 05/11/23 05/12/23 05/12/23 18:59 06:59 18:59 Intake Total 4526.096 2855.37 888 Output Total 1850 1470 670 Balance 2676.096 1385.37 218 Weight 95.9 kg 101 kg Intake: IV 3859 1039 0 Arterial Pressure Bag 3 39 0 Sodium Chloride 0.9% 1, 1000 000 ml @ 999 mls/hr IV . Q1H1M [facility] Rx#:[id number] Intake, IV Titration 981.349 6916.37 300 Amount Norepinephrine 4 mg In 1.096 116.37 Sodium Chloride 0.9% 250 ml @ 0.03 MCG/KG/MIN 10. 961 mls/hr IV .[id number] [facility] Rx#:[id number] Sodium Chloride 0.9% 1, 100 1300 300 000 ml @ 100 mls/hr IV . Q10H [facility] Rx#:[id number] ceFAZolin 2 gm In Sodium 50 Chloride 0.9% 50 ml @ 100 mls/hr IVPB Q8H [facility] Rx#: [id number] Oral 300 Tube Feeding 350 Blood Product 566 288 Rc Pheresis 2 As3 Unit 282 [id number] Rc Pheresis 2 As3 Unit 284 [id number] Rc Pheresis 2 As3 Unit 288 [id number] Output: Drainage 270 200 Back 270 200 Urine 850 1200 470 Estimated Blood Loss 1000 Other: Voiding Method Indwelling Catheter Indwelling Catheter Indwelling Catheter ABP, PAP, CO, CI - Last Documented Arterial Blood Pressure 206/206 - Labs CBC & Chem 7: 05/12/23 06:06 05/12/23 06:06 Labs: Abnormal Lab Results - Last 24 Hours (Table) 05/11/23 05/11/23 05/11/23 Range/Units 08:05 17:22 17:26 WBC (3.8-10.6) k/uL RBC 3.48 L (4.30-5.90) m/uL Hgb 7.9 L D (13.0-17.5) gm/dL Hct 25.7 L (39.0-53.0) % MCV 74.0 L D (80.0-100.0) fL MCH 22.6 L (25.0-35.0) pg MCHC 30.6 L (31.0-37.0) g/dL RDW 21.1 H (11.5-15.5) % Plt Count (150-450) k/uL Neutrophils # 9.0 H (1.3-7.7) k/uL Lymphocytes # 0.5 L (1.0-4.8) k/uL ABG pH 7.29 L (7.35-7.45) ABG pO2 195 H (83-108) mmHg ABG O2 Saturation 99.7 H (94-97) % Chloride (98-107) mmol/L Glucose (74-99) mg/dL Calcium (8.4-10.2) mg/dL Crossmatch See Detail 05/11/23 05/12/23 05/12/23 Range/Units 20:30 06:06 06:06 WBC 10.7 H (3.8-10.6) k/uL RBC 3.29 L 2.95 L (4.30-5.90) m/uL Hgb 7.5 L 6.5 L* (13.0-17.5) gm/dL Hct 24.3 L 21.8 L (39.0-53.0) % MCV 73.8 L 74.0 L (80.0-100.0) fL MCH 22.7 L 22.2 L (25.0-35.0) pg MCHC 30.8 L 30.0 L (31.0-37.0) g/dL RDW 21.0 H 21.2 H (11.5-15.5) % Plt Count 141 L (150-450) k/uL Neutrophils # 8.4 H (1.3-7.7) k/uL Lymphocytes # (1.0-4.8) k/uL ABG pH (7.35-7.45) ABG pO2 (83-108) mmHg ABG O2 Saturation (94-97) % Chloride 110 H (98-107) mmol/L Glucose 116 H (74-99) mg/dL Calcium 7.1 L (8.4-10.2) mg/dL Crossmatch
--- NOTE | 2023-05-12 12:30 | P.CNPUL ---
History of Present Illness Consult date: 05/12/23 Requesting physician: Jluis Yao Reason for consult: other (ICU management) Chief complaint: Bilateral lower extremity radiculopathy/severe lumbar spondylosis/stenosis History of present illness: This is a 67-year-old white male with history of thoracic lumbar and lumbosacral intervertebral disc disease, thoracolumbar radiculopathy thoracolumbar kyphosis and back pain. Patient also had lumbar spondylosis, lumbar sacral spondylosis and atrophy of muscles of both lower extremities. He also had sacroiliac joint dysfunction. Yesterday, patient underwent [id number] decompression and fusion postoperatively, patient had to be admitted to the intensive care unit, and I was asked to see him on consultation. No major issues overnight, patient was extubated shortly after his surgery, and he tolerated extubation well. This morning the patient was seen in the ICU, has mostly some moderate back pain with radiation across the lower back, hemoglobin was noted to be low at 6.5, and he is receiving a unit of packed RBCs already. Apparently the patient had previous evaluation by Dr. Yeh in the office, and he cleared him for surgery as his PFT was unremarkable. Patient has a longstanding smoking history. And he continues to smoke until recently. But he has no cough no wheezing, no shortness of breath, no chest pain. WBC count this morning is 10.7 hemoglobin 6.5.Basic metabolic profile and renal profile is normal. Chest x-ray last night showed minimal basilar atelectasis, no evidence of congestive heart failure and no evidence of pneumonia, there is however slight prominence of the pulmonary vasculature Review of Systems REVIEW OF SYSTEMS: CONSTITUTIONAL: Negative. EYES: Negative. ENT: Negative. CARDIAC: Negative. PULMONARY: As above. GI: Negative. GENITOURINARY: Negative. MUSCULOSKELETAL: Chronic back pain and radiculopathy symptoms as noted in HPI. SKIN: Negative. NEUROPSYCH: Negative. ENDOCRINE: Negative. HEMATOLOGIC: Negative. Past Medical History Past Medical History: COPD, GERD/Reflux, Osteoarthritis (OA), Vascular Disorder Additional Past Medical History / Comment(s): left foot fx-ok ,pain left leg- worse left hip( possible back related) see orthopedic DR with MRI scheduled today,hx colon polyps, trouble swallowing. some vomiting. pt states he does not use his inhalers. Pt rescheduled due to diarrhea. pt states lasted a day feels fine now. was not asked to see PCP. History of Any Multi-Drug Resistant Organisms: MRSA Date of last positivie culture/infection: approx 5-10 yrs ago (pt unsure-already in computer) MDRO Source:: unk site Past Surgical History: Orthopedic Surgery Additional Past Surgical History / Comment(s): thumb and finger repair, colonoscopy Past Anesthesia/Blood Transfusion Reactions: No Reported Reaction Smoking Status: Current every day smoker - Past Family History Mother Family Medical History: No Reported History Father Family Medical History: Myocardial Infarction (MO) Medications and Allergies Home Medications Medication Instructions Recorded Confirmed Type Acetaminophen/Diphenhydramine 1 tab PO HS 01/13/22 05/08/23 History [Tylenol PM 500-25mg] Omeprazole [PriLOSEC] 20 mg PO DAILY 01/13/22 05/08/23 History QUEtiapine FUMARATE [QUEtiapine 100 mg PO BID 01/13/22 05/08/23 History FUMARATE ER] Thiamine [Vitamin B-1] 100 mg PO BID 01/13/22 05/08/23 History Aspirin EC [Ecotrin Low Dose] 81 mg PO DAILY 90 Days #90 tab 01/15/22 05/08/23 Rx Albuterol Inhaler [Ventolin Hfa 2 puff INHALATION Q4HR PRN 01/24/23 05/08/23 History Inhaler] Budesonide/Formoterol Fumarate 2 puff INHALATION BID PRN 01/24/23 05/08/23 History [Symbicort 160-4.5 Mcg Inhaler] Gabapentin 300 mg PO TID 04/26/23 05/08/23 History Sucralfate [Sucralfate Oral Susp] 10 ml PO DIRECTED 04/26/23 05/08/23 History Allergies Allergy/AdvReac Type Severity Reaction Status Date / Time acetaminophen [From [place]] Allergy Itching Verified 05/12/23 11:00 hydrocodone [From [place]] Allergy Itching Verified 05/12/23 11:00 Physical Exam Vitals: Vital Signs Temp Pulse Pulse Resp BP BP Pulse Ox 05/12/23 12:07 111 H 05/12/23 11:55 113 H 05/12/23 11:00 104 H 16 103/69 98 05/12/23 10:30 98.5 F 105 H 16 103/69 94 L 05/12/23 10:00 105 H 19 102/72 97 05/12/23 09:45 112 H 16 94/65 92 L 05/12/23 09:30 111 H 22 128/32 88 L 05/12/23 09:15 116 H 28 H 108/67 95 05/12/23 09:00 112 H 26 H 120/85 91 L 05/12/23 08:45 98 F 115 H 18 94/65 94 L 05/12/23 08:44 90 L 05/12/23 08:35 118 H 05/12/23 08:30 116 H 22 85/36 91 L 05/12/23 08:25 98 F 115 H 18 106/87 91 L 05/12/23 08:15 98.1 F 117 H 19 113/84 91 L 05/12/23 08:00 98.1 F 112 H 19 72/57 97 05/12/23 07:45 122 H 27 H 113/94 88 L 05/12/23 07:30 126 H 24 115/88 88 L 05/12/23 07:15 111 H 24 101/69 89 L 05/12/23 07:00 105 H 14 93/60 95 05/12/23 06:45 100 16 86/66 88 L 05/12/23 06:30 96 12 111/73 95 05/12/23 06:15 93 17 105/77 96 05/12/23 06:00 98 15 83/60 95 05/12/23 05:45 105 H 15 101/62 92 L 05/12/23 05:30 97 12 84/61 95 05/12/23 05:15 102 H 12 103/58 92 L 05/12/23 05:00 104 H 14 100/64 95 05/12/23 04:45 101 H 15 125/63 96 05/12/23 04:30 106 H 17 132/78 96 05/12/23 04:15 98 13 110/70 96 05/12/23 04:13 108 H 05/12/23 04:00 97.9 F 96 16 104/73 95 05/12/23 03:45 101 H 16 112/68 91 L 05/12/23 03:30 92 17 103/76 94 L 05/12/23 03:15 107 H 14 119/65 93 L 05/12/23 03:00 105 H 22 112/64 90 L 05/12/23 02:45 98 18 110/83 91 L 05/12/23 02:30 108 H 30 H 132/91 92 L 05/12/23 02:15 109 H 25 H 102/71 96 05/12/23 02:00 100 25 H 103/70 93 L 05/12/23 01:45 100 14 96/62 94 L 05/12/23 01:30 99 15 97/65 95 05/12/23 01:15 103 H 17 86/62 95 05/12/23 01:00 103 H 21 112/76 94 L 05/12/23 00:45 101 H 20 91/64 94 L 05/12/23 00:30 102 H 17 109/73 94 L 05/12/23 00:15 102 H 14 102/63 94 L 05/12/23 00:10 105 H 05/12/23 00:00 97.9 F 102 H 15 90/60 99 05/11/23 23:56 101 H 05/11/23 23:45 105 H 19 106/72 93 L 05/11/23 23:30 98 18 90/58 92 L 05/11/23 23:15 112 H 16 117/71 98 05/11/23 23:09 100 17 117/71 92 L 05/11/23 23:00 112 H 23 97/68 95 05/11/23 22:45 110 H 20 106/78 92 L 05/11/23 22:30 106 H 19 102/76 97 05/11/23 22:15 96 16 113/75 96 05/11/23 22:00 99 17 99/77 91 L 05/11/23 21:45 100 15 100/70 92 L 05/11/23 21:30 97 14 139/69 88 L 05/11/23 21:15 100 11 L 104/65 94 L 05/11/23 21:00 93 15 117/86 94 L 05/11/23 20:45 105 H 15 134/70 91 L 05/11/23 20:33 97 05/11/23 20:30 85 19 111/63 95 05/11/23 20:21 105 H 05/11/23 20:15 85 13 100/78 88 L 05/11/23 20:00 98.0 F 102 H 17 106/66 89 L 05/11/23 19:45 83 14 95/48 89 L 05/11/23 19:30 92 14 92/65 94 L 05/11/23 19:15 92 13 90/70 95 05/11/23 19:00 89 11 L 92/46 96 05/11/23 18:45 88 14 97/69 97 05/11/23 18:30 84 16 95/66 94 L 05/11/23 18:15 96.9 F L 75 18 82/64 90 L 05/11/23 18:06 84 22 05/11/23 17:56 72 18 116/59 99 05/11/23 17:35 68 18 116/85 99 05/11/23 17:20 67 103/76 05/11/23 17:15 68 18 92/60 99 05/11/23 17:09 79/60 05/11/23 17:00 65 18 114/68 99 05/11/23 16:45 97.0 F L 72 18 130/79 94 L Intake and Output 05/11/23 05/12/23 05/12/23 22:59 06:59 14:59 Intake Total 2690.826 1354.64 1257.422 Output Total 2410 910 1050 Balance 280.826 444.64 207.422 Intake: IV 1819 27 0 Arterial Pressure Bag 15 27 0 Sodium Chloride 0.9% 1, 1000 000 ml @ 999 mls/hr IV . Q1H1M [facility] Rx#:[id number] Intake, IV Titration 589.826 977.64 469.422 Amount Norepinephrine 4 mg In 39.826 77.64 69.422 Sodium Chloride 0.9% 250 ml @ 0.03 MCG/KG/MIN 10. 961 mls/hr IV .[id number] [facility] Rx#:[id number] Sodium Chloride 0.9% 1, 500 900 400 000 ml @ 100 mls/hr IV . Q10H [facility] Rx#:[id number] ceFAZolin 2 gm In Sodium 50 Chloride 0.9% 50 ml @ 100 mls/hr IVPB Q8H [facility] Rx#: [id number] Oral 500 Tube Feeding 350 Blood Product 282 288 Rc Pheresis 2 As3 Unit 282 [id number] Rc Pheresis 2 As3 Unit 288 [id number] Output: Drainage 70 200 400 Back 70 200 400 Urine 1340 710 650 Estimated Blood Loss 1000 Other: Voiding Method Indwelling Catheter Indwelling Catheter Indwelling Catheter Weight 101 kg General: The patient is awake and alert, in no distress, and does not appear acutely ill. Skin: Skin is warm and dry and no rashes or lesions are noted. Eye: Pupils are equal, round and reactive to light, extra-ocular movements are intact; there is normal conjunctiva bilaterally. Ears, nose, mouth and throat: There are moist mucous membranes and no oral lesions. Neck: The neck is supple, there is no tenderness or JVD. Cardiovascular: There is a regular rate and rhythm. No murmur, rub or gallop is appreciated. Respiratory: Diminished breath sounds at the bases no rhonchi no wheezes Gastrointestinal: Soft, non-distended, non-tender abdomen without masses or organomegaly noted. There is no rebound or guarding present. Bowel sounds are unremarkable. Neurological: Alert and oriented x 3, no gross focal deficit Psychiatric: Normal mood, affect and normal mental status examination. Results - Laboratory Findings CBC and BMP: 05/12/23 06:06 05/12/23 06:06 ABG ABG pH 7.29 (7.35-7.45) L 05/11/23 17:26 ABG pCO2 45 mmHg (35-45) 05/11/23 17:26 ABG pO2 195 mmHg (83-108) H 05/11/23 17:26 ABG O2 Saturation 99.7 % (94-97) H 05/11/23 17:26 PT/INR, D-dimer PT 11.6 sec (10.0-12.5) 05/11/23 17:22 INR 1.1 (<1.2) 05/11/23 17:22 Abnormal lab findings: Abnormal Labs 05/11/23 05/11/23 05/11/23 08:05 08:14 17:22 WBC RBC 3.48 L Hgb 7.9 L D Hct 25.7 L MCV 74.0 L D MCH 22.6 L MCHC 30.6 L RDW 21.1 H Plt Count Neutrophils # 9.0 H Lymphocytes # 0.5 L ABG pH ABG pO2 ABG O2 Saturation Chloride Glucose POC Glucose (mg/dL) 150 H Calcium Crossmatch See Detail 05/11/23 05/11/2324 17:26 20:30 06:06 WBC 10.7 H RBC 3.29 L 2.95 L Hgb 7.5 L 6.5 L* Hct 24.3 L 21.8 L MCV 73.8 L 74.0 L MCH 22.7 L 22.2 L MCHC 30.8 L 30.0 L RDW 21.0 H 21.2 H Plt Count 141 L Neutrophils # 8.4 H Lymphocytes # ABG pH 7.29 L ABG pO2 195 H ABG O2 Saturation 99.7 H Chloride Glucose POC Glucose (mg/dL) Calcium Crossmatch 05/12/23 06:06 WBC RBC Hgb Hct MCV MCH MCHC RDW Plt Count Neutrophils # Lymphocytes # ABG pH ABG pO2 ABG O2 Saturation Chloride 110 H Glucose 116 H POC Glucose (mg/dL) Calcium 7.1 L Crossmatch - Diagnostic Findings Chest x-ray: image reviewed (As noted in HPI) Assessment and Plan Assessment: Impression: Postop day 1: [id number] decompression and fusion Severe lumbar spondylosis with stenosis Bilateral lower extremity radiculopathy Acute blood loss anemia, expected History of alcohol abuse, patient is on the CIWA protocol. History of thrombocytopenia related to alcohol abuse. History of COPD, asymptomatic and lungs are clear. History of peripheral vessel occlusive disease. Recommendation: Continue present supportive care measures Continue incentive spirometry Continue inhalers/bronchodilators for Transfuse for hemoglobin below 7 Early ambulation. Continue to monitor in the ICU for the next 24 hours. Will continue to follow Time with Patient: Greater than 30
[2023-05-12 12:37] LABS: Anisocytosis Moderate; Basophils % (A) 0 %; Eosinophils % (A) 0 %; HCT 26.4 % (39.0-53.0); Hypochromasia Marked; Lymphocytes # (A) 0.4 k/uL (1.0-4.8); Lymphocytes % (A) 3 %; MCHC 30.4 g/dL (31.0-37.0); MCV 75.7 fL (80.0-100.0); Mean Platelet Volume 8.1; Microcytosis Moderate; Monocytes # (A) 0.6 k/uL (0-1.0); Monocytes % (A) 5 %; Neutrophils # (A) 12.2 k/uL (1.3-7.7); Neutrophils % (A) 92 %; Platelet Count 149 k/uL (150-450); Poikilocytosis Moderate; RBC 3.49 m/uL (4.30-5.90); RDW 21.1 % (11.5-15.5); WBC 13.3 k/uL (3.8-10.6)
[2023-05-12] MEDS: HYDROmorphone 1 MG/ML 1 ML SYRINGE IVP STA (12:52)
[2023-05-12] MEDS: oxyCODONE-APAP 5-325MG 1 EACH TAB PO PRN (12:52)
[2023-05-12] MEDS: LORazepam 2 MG/ML INJ IV PRN (12:56)
--- NOTE | 2023-05-12 18:37 | CT ---
EXAMINATION TYPE: CT thor lumbar spine wo con CT DLP: 2954.6 mGycm, Automated exposure control for dose reduction was used. DATE OF EXAM: 05/12/2023 4:31 PM CLINICAL INDICATION:Male, 67 years old with history of s/p [id number] decompression and fusion; s/p T 10-Pelvis decompression and fusion. COMPARISON: 01/24/2023 TECHNIQUE: Axial images of the thoracic and lumbar spine were obtained without contrast. Coronal and sagittal reformats were performed. 3-D reformats of the bones were created on a separate workstation and submitted for review. CT Contrast: Contrast used: mL of , none. Oral contrast used: none. FINDINGS: Postsurgical changes to the spine with fixation hardware extending from T10 through S1 with bilateral pelvic fixation screws. Hardware appears intact. There is discectomy at L2-L3, L3-L4, L4-L5 and L5-S 1. Subcutaneous lucencies compatible with recent surgery in the surgical bed. Skin rocio are presen t. No evidence of fracture. No evidence for significant spinal canal or neural foraminal stenosis. Scattered colonic diverticula. Hart catheter partially visualized. Left-common iliac stent graft par tially visualized. Atherosclerosis of the arterial vascular. IMPRESSION: Post surgical changes without evidence of immediate post surgical complication. Hardware appears inta ct.
[2023-05-12] MEDS: SYMBICORT 160-4.5 MCG INHALER INHALATION PRN (19:35)
[2023-05-12] MEDS: HYDROmorphone 1 MG/ML 1 ML SYRINGE IVP PRN (20:40)
[2023-05-12 23:44] LABS: Anisocytosis Moderate; HCT 25.9 % (39.0-53.0); HGB 7.9 gm/dL (13.0-17.5); Hypochromasia Marked; MCH 23.2 pg (25.0-35.0); MCHC 30.4 g/dL (31.0-37.0); MCV 76.2 fL (80.0-100.0); Mean Platelet Volume 9.1; Microcytosis Moderate; Platelet Count 145 k/uL (150-450); Poikilocytosis Moderate; RDW 21.5 % (11.5-15.5); WBC 18.1 k/uL (3.8-10.6)
[2023-05-13 05:48] LABS: Anisocytosis Moderate; HCT 24.8 % (39.0-53.0); HGB 7.5 gm/dL (13.0-17.5); Hypochromasia Marked; MCHC 30.2 g/dL (31.0-37.0); MCV 76.3 fL (80.0-100.0); Microcytosis Moderate; Platelet Count 146 k/uL (150-450); Poikilocytosis Marked; RBC 3.25 m/uL (4.30-5.90); RDW 21.2 % (11.5-15.5); WBC 17.5 k/uL (3.8-10.6)
[2023-05-13] MEDS: IPRATROPIUM-ALBUTEROL 3 ML NEB INHALATION SCH (07:40)
[2023-05-13] MEDS: MAGNESIUM HYDROXIDE 2,400 MG/30 ML CUP PO SCH (08:47)
[2023-05-13] MEDS: oxyCODONE-APAP 10-325MG 1 EACH TAB PO PRN (08:48)
[2023-05-13] MEDS ORDERED: THIAMINE 100 MG TAB PO SCH (09:00)
[2023-05-13] MEDS: HYDROmorphone 1 MG/ML 1 ML SYRINGE IVP STA (10:03)
--- NOTE | 2023-05-13 11:03 | P.PN ---
Subjective Progress Note Date: 05/13/23 Patient is a 67-year-old male with a PMH of peripheral arterial disease status post left common iliac artery stenting, tobacco abuse, and COPD who was admitted for an elective lumbosacral osteotomy for deformity correction. The patient underwent the procedure on 05/11. The patient reportedly had 1 L of estimated blood loss and was given 2 units of PRBCs postoperatively. 05/12 Patient was seen and examined in the ICU. He reports 10/10 pain in his lumbar spine. Reports drinking 4 beers daily. He has no other complaints today. CBC WBC 10.7, Hg 6.5, Hct 21.8, MCV 74, Plt 141. BMP Cl 110, glu 116, Ca 7.1. Orthopedic surgery note reviewed, OK to start Heparin SQ tonight. 05/13 Patient was seen and examined. He reports continued 10/10 pain in his lumbar spine. 4 mg Dilaudid IV and 1 mg Ativan IV over the past 24H. He has no other complaints today. CBC WBC 17.5, Hg 7.5, Hct 24.8, MCV 76.3, Plt 146. BMP pending. CT L spine shows appropriate hardware. General: non toxic, no distress, appears at stated age Derm: warm, dry Head: atraumatic, normocephalic, symmetric Eyes: EOMI, no lid lag, anicteric sclera Mouth: no lip lesion, mucus membranes moist Cardiovascular: S1S2 tachycardic, no murmur Lungs: CTA bilateral, no rhonchi, no rales , no accessory muscle use Ext: no gross muscle atrophy, no edema, no contractures Neuro: no focal neuro deficits Psych: Alert, oriented, appropriate affect Based on my assessment of this patient, this patient meets a high complexity level of care. Patient is POD 1 lumbosacral osteotomy with severe exacerbation or progression of disease which poses a threat to life or bodily function. Acute blood loss anemia: Expected result of surgery. Transfused 1 unit PRBC 05/12. Transfuse if Hg < 7. h/o EtOH abuse: CIWA protocol. Ativan PRN for alcohol withdrawal per CIWA scale. Leukocytosis: Likely reactive. Also on steroids. Monitor fever profile. No signs of active infection. Thrombocytopenia: Likely due to EtOH abuse. Monitor while patient is on Heparin SQ. Chronic conditions: PAD, tobacco abuse, COPD CODE STATUS: FULL CODE DVT Prophylaxis: Heparin SQ GI Prophylaxis: Protonix Designated medical POA if patient is not able to make medical decisions for th emselves: I have reviewed the following data consultant notes: Orthopedic surgery, Pulmonary note. I have reviewed the results of the following tests: CBC, CT L spine I have ordered the following tests: BMP I have discussed the care of this patient with the following independent historian: Discussed with RN regarding pain management. I have independently interpreted the following test below: I have discussed the management of this patient with the following physician: This patient meets a high level of care for the following reasons: Patient requires IV narcotics which requires intensive monitoring for respiratory depression. Objective - Vital Signs Vital signs: Vital Signs Temp 98.4 F 05/13/23 07:15 Pulse 92 05/13/23 07:58 Resp 17 05/13/23 07:15 BP 143/79 05/13/23 07:15 Pulse Ox 94 L 05/13/23 07:15 FiO2 Intake & Output 05/12/23 05/13/23 05/13/23 18:59 06:59 18:59 Intake Total 1508.336 500 Output Total 1560 955 200 Balance -51.664 -455 -200 Intake: IV 0 500 Arterial Pressure Bag 0 Sodium Chloride 0.9% 1, 500 000 ml @ 100 mls/hr IV . Q10H [facility] Rx#:[id number] Intake, IV Titration 570.336 Amount Norepinephrine 4 mg In 70.336 Sodium Chloride 0.9% 250 ml @ 0.03 MCG/KG/MIN 10. 961 mls/hr IV .[id number] [facility] Rx#:[id number] Sodium Chloride 0.9% 1, 500 000 ml @ 100 mls/hr IV . Q10H [facility] Rx#:[id number] Oral 650 Blood Product 288 Rc Pheresis 2 As3 Unit 288 [id number] Output: Drainage 700 355 Back 700 355 Urine 860 600 200 Other: Voiding Method Bedside Commode Toilet Urinal Urinal ABP, PAP, CO, CI - Last Documented Arterial Blood Pressure 206/206 - Labs CBC & Chem 7: 05/13/23 05:26 05/12/23 06:06 Labs: Abnormal Lab Results - Last 24 Hours (Table) 05/11/23 05/12/23 05/12/23 Range/Units 08:05 11:52 23:31 WBC 13.3 H 18.1 H (3.8-10.6) k/uL RBC 3.49 L 3.40 L (4.30-5.90) m/uL Hgb 8.0 L D 7.9 L (13.0-17.5) gm/dL Hct 26.4 L 25.9 L (39.0-53.0) % MCV 75.7 L 76.2 L (80.0-100.0) fL MCH 23.0 L 23.2 L (25.0-35.0) pg MCHC 30.4 L 30.4 L (31.0-37.0) g/dL RDW 21.1 H 21.5 H (11.5-15.5) % Plt Count 149 L 145 L (150-450) k/uL Neutrophils # 12.2 H (1.3-7.7) k/uL Lymphocytes # 0.4 L (1.0-4.8) k/uL Crossmatch See Detail 05/13/23 Range/Units 05:26 WBC 17.5 H (3.8-10.6) k/uL RBC 3.25 L (4.30-5.90) m/uL Hgb 7.5 L (13.0-17.5) gm/dL Hct 24.8 L (39.0-53.0) % MCV 76.3 L (80.0-100.0) fL MCH 23.0 L (25.0-35.0) pg MCHC 30.2 L (31.0-37.0) g/dL RDW 21.2 H (11.5-15.5) % Plt Count 146 L (150-450) k/uL Neutrophils # (1.3-7.7) k/uL Lymphocytes # (1.0-4.8) k/uL Crossmatch
[2023-05-13 11:53] LABS: % Iron Saturation 3.01 (15.00-50.00); Ferritin 35.3 ng/mL (22.0-322.0)
--- NOTE | 2023-05-13 13:05 | P.PN ---
Subjective Progress Note Date: 05/13/23 Principal diagnosis: Severe lumbar spondylosis with stenosis Bilateral lower extremity radiculopathy Patient seen and examined this morning. Patient has been transferred from ICU to medical floor. Patient is resting comfortably in bed. Surgical incision to the thoracolumbar spine, edges are well approximate with rocio intact. Hemovac drain has accidentally been dislodged, this has been removed and new surgical dressing applied. Patient's hemoglobin this morning 7.5 with hematocrit of 24.8, 1 unit RBC has been ordered to be transfused. Patient has also been started on ferrous sulfate twice a day. Patient has been symptomatic with BP 77/48 and O2 saturation 80% on RA. Patient has now been placed on 4L NC. Patient was provided an additional dose of IV dilaudid and Ativan earlier this morning as well, which may have contributed to his symptoms. RN states patient had been up in chair and ambulating in room with walker this morning. LSO brace is at bedside. When patient is hemodynamically stable, please continue to encourage patient to work with PT/OT and be up in chair for all meals. Objective - Vital Signs Vital signs: Vital Signs Temp 98.4 F 05/13/23 07:15 Pulse 92 05/13/23 07:58 Resp 17 05/13/23 07:15 BP 143/79 05/13/23 07:15 Pulse Ox 94 L 05/13/23 07:15 FiO2 Intake & Output 05/12/23 05/13/23 05/13/23 18:59 06:59 18:59 Intake Total 1508.336 500 Output Total 1560 955 200 Balance -51.664 -455 -200 Intake: IV 0 500 Arterial Pressure Bag 0 Sodium Chloride 0.9% 1, 500 000 ml @ 100 mls/hr IV . Q10H [facility] Rx#:[id number] Intake, IV Titration 570.336 Amount Norepinephrine 4 mg In 70.336 Sodium Chloride 0.9% 250 ml @ 0.03 MCG/KG/MIN 10. 961 mls/hr IV .[id number] [facility] Rx#:[id number] Sodium Chloride 0.9% 1, 500 000 ml @ 100 mls/hr IV . Q10H [facility] Rx#:[id number] Oral 650 Blood Product 288 Rc Pheresis 2 As3 Unit 288 [id number] Output: Drainage 700 355 Back 700 355 Urine 860 600 200 Other: Voiding Method Bedside Commode Toilet Urinal Urinal ABP, PAP, CO, CI - Last Documented Arterial Blood Pressure 206/206 - Exam Physical Examination General: The patient is awake and alert, in no acute distress Skin: Skin is warm and dry with no obvious rashes or lesions. Surgical incision to the thoracolumbar spine, edges are well approximated with rocio intact. Hemovac drain has been removed and new surgical dressing applied. Eye: Pupils are equal, round and reactive to light, extra-ocular movements are intact; there is normal conjunctiva bilaterally. Neck: The neck is supple, there is no tenderness and ROM intact. Cardiovascular: There is a regular rate and rhythm. No murmur, rub or gallop is appreciated. Respiratory: Lungs are clear to auscultation, respirations are non-labored, breath sounds are equal. Gastrointestinal: Soft, non-distended, non-tender abdomen. Back: There is moderate tenderness to palpation in the paralumbar region, due to surgery. There is no obvious deformity . Musculoskeletal: ROM limited secondary to pain and stiffness from surgical procedure. Muscle strength in all major muscle groups of bilateral upper extremities 5/5, bilateral lower extremities 4/5. Neurological: CN 2-12 intact. There are no obvious motor or sensory deficits. Movement and coordination equal and intact. Sensory exam to light touch intact C5-T1 and intact from L2-S1. Reflexes 2/4 in bilateral upper and lower extremities. Negative Hoffmans, babinski, and clonus signs. Psychiatric: Cooperative, appropriate mood & affect, normal judgment. - Labs CBC & Chem 7: 05/13/23 05:26 05/12/23 06:06 Labs: Abnormal Lab Results - Last 24 Hours (Table) 05/12/23 05/13/23 05/13/23 Range/Units 23:31 05:26 05:26 WBC 18.1 H 17.5 H (3.8-10.6) k/uL RBC 3.40 L 3.25 L (4.30-5.90) m/uL Hgb 7.9 L 7.5 L (13.0-17.5) gm/dL Hct 25.9 L 24.8 L (39.0-53.0) % MCV 76.2 L 76.3 L (80.0-100.0) fL MCH 23.2 L 23.0 L (25.0-35.0) pg MCHC 30.4 L 30.2 L (31.0-37.0) g/dL RDW 21.5 H 21.2 H (11.5-15.5) % Plt Count 145 L 146 L (150-450) k/uL Iron 11 L (65-175) UG/DL % Saturation 3.01 L (15.00-50.00) Assessment and Plan Assessment: Postop day 2: [id number] decompression and fusion Severe lumbar spondylosis with stenosis Bilateral lower extremity radiculopathy Post-Op anemia: expected outcome Plan: -Appreciate production consultant and team management. -Continue to monitor hemoglobin, transfuse one unit RBC, please order redraw 4 hours after blood has transfused. -Activity: Ambulate QID, OOB all meals, up and about, limit lifting bending twisting to less than 5 lbs. Use walker or cane if needed for stability. -Daily PT/OT, increase ambulation strength and balance. -Brace when up and about, not needed in bed or chair -Pain control: Adequate at this time -Meds: reviewed -GI ppx: senna, Miralax -DVT PPX: Heparin -Hygiene: Shower today. Maintain dressing clean and dry. Meticulous cleaning after BMs away from the incision site -Encourage IS 10x/hr -Dispo: Clinically pending *I reviewed and discussed this case with my attending Dr. Yao, whom has reviewed this chart and films and is in agreement with assessment and plan of care as outlined above. I have personally seen and examined the patient, performed the documentation and the assessment and plan as written. Number of minutes spent on the visit: 20m.
[2023-05-13 13:16] LABS: African American GFR (CKD) >90 (>60 ml/min/1.73 sqM); Anion Gap 3 mmol/L; Blood Urea Nitrogen 11 mg/dL (9-20); Calcium 7.5 mg/dL (8.4-10.2); Carbon Dioxide 24 mmol/L (22-30); Chloride 111 mmol/L (98-107); Glucose 108 mg/dL (74-99); Non-African American GFR(CKD) >90 (>60 ml/min/1.73 sqM); Potassium 4.1 mmol/L (3.5-5.1); Sodium 138 mmol/L (137-145)
--- NOTE | 2023-05-13 13:41 | P.PN ---
Subjective Progress Note Date: 05/13/23 This is a 67-year-old white male with history of thoracic lumbar and lumbosacral intervertebral disc disease, thoracolumbar radiculopathy thoracolumbar kyphosis and back pain. Patient also had lumbar spondylosis, lumbar sacral spondylosis and atrophy of muscles of both lower extremities. He also had sacroiliac joint dysfunction. Yesterday, patient underwent [id number] decompression and fusion postoperatively, patient had to be admitted to the intensive care unit, and I was asked to see him on consultation. No major issues overnight, patient was extubated shortly after his surgery, and he tolerated extubation well. This morning the patient was seen in the ICU, has mostly some moderate back pain with radiation across the lower back, hemoglobin was noted to be low at 6.5, and he is receiving a unit of packed RBCs already. Apparently the patient had previous evaluation by Dr. Yeh in the office, and he cleared him for surgery as his PFT was unremarkable. Patient has a longstanding smoking history. And he continues to smoke until recently. But he has no cough no wheezing, no shortness of breath, no chest pain. WBC count this morning is 10.7 hemoglobin 6.5.Basic metabolic profile and renal profile is normal. Chest x-ray last night showed minimal basilar atelectasis, no evidence of congestive heart failure and no evidence of pneumonia, there is however slight prominence of the pulmonary vasculature The patient is seen today May 13, 2023 in follow-up on the regular medical floor. He is awake and alert no acute distress. Sitting up in a chair at the bedside. Maintaining good O2 saturations in the 90s on room air. Postoperative CT scan of the lumbar spine revealed no evidence of complication. Hardware appears intact. He is status post 3 units packed red blood cells this admission. Current hemoglobin 7.5. An additional unit ordered per orthopedic surgery. White count 17.5. Platelets 146. Sodium 138. Potassium 4.1. Bicarb 24. BUN 11. Creatinine 0.80. Glucose 108. He remains on Symbicort and DuoNeb ventilations. Pain is adequately controlled. NicoDerm patch in place. Objective - Vital Signs Vital signs: Vital Signs Temp 99.0 F 05/13/23 13:19 Pulse 100 05/13/23 13:19 Resp 18 05/13/23 13:19 BP 104/59 05/13/23 13:19 Pulse Ox 98 05/13/23 12:43 FiO2 Intake & Output 05/12/23 05/13/23 05/13/23 18:59 06:59 18:59 Intake Total 1508.336 500 0 Output Total 1560 955 200 Balance -51.664 -455 -200 Intake: IV 0 500 Arterial Pressure Bag 0 Sodium Chloride 0.9% 1, 500 000 ml @ 100 mls/hr IV . Q10H ANGEL Rx#:[id number] Intake, IV Titration 570.336 Amount Norepinephrine 4 mg In 70.336 Sodium Chloride 0.9% 250 ml @ 0.03 MCG/KG/MIN 10. 961 mls/hr IV .[id number] ANGEL Rx#:[id number] Sodium Chloride 0.9% 1, 500 000 ml @ 100 mls/hr IV . Q10H ANGEL Rx#:[id number] Oral 650 Blood Product 288 0 Rc As-1 Unit 0 [id number] Rc Pheresis 2 As3 Unit 288 [id number] Output: Drainage 700 355 Back 700 355 Urine 860 600 200 Other: Voiding Method Bedside Commode Toilet Toilet Urinal Urinal Urinal ABP, PAP, CO, CI - Last Documented Arterial Blood Pressure 206/206 - Exam General: The patient is awake and alert, in no distress, sitting up in a chair at the bedside, on room air, and does not appear acutely ill. Skin: Skin is warm and dry and no rashes or lesions are noted. Eye: Pupils are equal, round and reactive to light, extra-ocular movements are intact; there is normal conjunctiva bilaterally. Ears, nose, mouth and throat: There are moist mucous membranes and no oral lesions. Neck: The neck is supple, there is no tenderness or JVD. Cardiovascular: There is a regular rate and rhythm. No murmur, rub or gallop is appreciated. Respiratory: Diminished breath sounds at the bases no rhonchi no wheezes Gastrointestinal: Soft, non-distended, non-tender abdomen without masses or organomegaly noted. There is no rebound or guarding present. Bowel sounds are unremarkable. Neurological: Alert and oriented x 3, no gross focal deficit Psychiatric: Normal mood, affect and normal mental status examination. Musculoskeletal: Surgical site clean dry well-approximated. Dressing dry and intact. Hemovac currently out - Labs CBC & Chem 7: 05/13/23 05:26 05/13/23 12:24 Labs: Abnormal Lab Results - Last 24 Hours (Table) 05/11/23 05/12/23 05/13/23 Range/Units 08:05 23:31 05:26 WBC 18.1 H 17.5 H (3.8-10.6) k/uL RBC 3.40 L 3.25 L (4.30-5.90) m/uL Hgb 7.9 L 7.5 L (13.0-17.5) gm/dL Hct 25.9 L 24.8 L (39.0-53.0) % MCV 76.2 L 76.3 L (80.0-100.0) fL MCH 23.2 L 23.0 L (25.0-35.0) pg MCHC 30.4 L 30.2 L (31.0-37.0) g/dL RDW 21.5 H 21.2 H (11.5-15.5) % Plt Count 145 L 146 L (150-450) k/uL Chloride (98-107) mmol/L Glucose (74-99) mg/dL Calcium (8.4-10.2) mg/dL Iron (65-175) UG/DL % Saturation (15.00-50.00) Crossmatch See Detail 05/13/23 05/13/23 Range/Units 05:26 12:24 WBC (3.8-10.6) k/uL RBC (4.30-5.90) m/uL Hgb (13.0-17.5) gm/dL Hct (39.0-53.0) % MCV (80.0-100.0) fL MCH (25.0-35.0) pg MCHC (31.0-37.0) g/dL RDW (11.5-15.5) % Plt Count (150-450) k/uL Chloride 111 H (98-107) mmol/L Glucose 108 H (74-99) mg/dL Calcium 7.5 L (8.4-10.2) mg/dL Iron 11 L (65-175) UG/DL % Saturation 3.01 L (15.00-50.00) Crossmatch Assessment and Plan Assessment: Postop day 2: [id number] decompression and fusion Postoperative anemia requiring a fourth unit of packed red blood cells Severe lumbar spondylosis with stenosis Bilateral lower extremity radiculopathy Acute blood loss anemia, expected History of alcohol abuse, patient is on the CIWA protocol History of thrombocytopenia related to alcohol abuse History of COPD, asymptomatic and lungs are clear History of peripheral vessel occlusive disease Plan: The patient was seen and evaluated Currently stable and on room air Sitting up in a chair Pain is adequately controlled Continue bronchodilators NicoDerm patch in place Continued on the CINY protocol PRBCs per orthopedics We will continue to follow I have personally seen and examined the patient, performed the documentation and the assessment and plan as written. Number of minutes spent on the visit: 10.
[2023-05-13] MEDS: CYCLOBENZAPRINE 5 MG TAB PO SCH (15:00)
[2023-05-13] MEDS: FERROUS SULFATE 325 MG TAB PO SCH (15:10)
[2023-05-13 17:21] LABS: Anisocytosis Moderate; HCT 23.5 % (39.0-53.0); Hypochromasia Marked; MCH 23.1 pg (25.0-35.0); MCHC 29.7 g/dL (31.0-37.0); MCV 77.7 fL (80.0-100.0); Mean Platelet Volume 9.1; Microcytosis Moderate; Platelet Count 127 k/uL (150-450); Poikilocytosis Moderate; RBC 3.02 m/uL (4.30-5.90); RDW 21.2 % (11.5-15.5); WBC 13.4 k/uL (3.8-10.6)
[2023-05-13] MEDS: HEPARIN SODIUM,PORCINE 5,000 UNIT/ML 1 ML VIAL SQ SCH (20:05)
[2023-05-13 21:05] LABS: Anisocytosis Moderate; HCT 29.5 % (39.0-53.0); Hypochromasia Marked; MCH 23.8 pg (25.0-35.0); MCHC 30.7 g/dL (31.0-37.0); MCV 77.6 fL (80.0-100.0); Mean Platelet Volume 8.4; Microcytosis Moderate; Platelet Count 121 k/uL (150-450); Poikilocytosis Moderate; RDW 20.6 % (11.5-15.5); WBC 14.3 k/uL (3.8-10.6)
--- NOTE | 2023-05-14 08:05 | P.PN ---
Subjective Progress Note Date: 05/14/23 Principal diagnosis: Severe lumbar spondylosis with stenosis Bilateral lower extremity radiculopathy Patient seen and examined this morning. Patient is sitting up in chair. He co ntinues to report mid-low back pain. Patient BP remains hypotensive. Hgb 9.0 this morning. Surgical incision to thoracolumbar spine, dressing is CDI. LSO brace is at bedside, patient denies need to wear it at this time due to pain. He states he slept well last night and is feeling better today. Continue to encourage patient to be up in chair for all meals and to be ambulating as tolerated. Patient reports use of incentive spirometer while awake. No acute concerns. Objective - Vital Signs Vital signs: Vital Signs Temp 99.6 F 05/14/23 01:40 Pulse 96 05/14/23 01:40 Resp 22 05/14/23 01:40 BP 98/64 05/14/23 01:40 Pulse Ox 95 05/14/23 01:40 FiO2 Intake & Output 05/13/23 05/14/23 05/14/23 18:59 06:59 18:59 Intake Total 310 480 Output Total 275 700 Balance 35 -220 Intake: Oral 480 Blood Product 310 Rc As-1 Unit 310 [id number] Output: Drainage 75 Back 75 Urine 200 700 Other: Voiding Method Toilet Toilet Urinal Urinal ABP, PAP, CO, CI - Last Documented Arterial Blood Pressure 206/206 - Exam Physical Examination General: The patient is awake and alert, in no acute distress Skin: Skin is warm and dry with no obvious rashes or lesions. Surgical incision to the thoracolumbar spine, dressing CDI. Eye: Pupils are equal, round and reactive to light, extra-ocular movements are intact; there is normal conjunctiva bilaterally. Neck: The neck is supple, there is no tenderness and ROM intact. Cardiovascular: There is a regular rate and rhythm. No murmur, rub or gallop is appreciated. Respiratory: Lungs are clear to auscultation, respirations are non-labored, breath sounds are equal. Gastrointestinal: Soft, non-distended, non-tender abdomen. Back: There is moderate tenderness to palpation in the paralumbar region, due to surgery. There is no obvious deformity . Musculoskeletal: ROM limited secondary to pain and stiffness from surgical procedure. Muscle strength in all major muscle groups of bilateral upper extremities 5/5, bilateral lower extremities 4/5. Neurological: CN 2-12 intact. There are no obvious motor or sensory deficits. Movement and coordination equal and intact. Sensory exam to light touch intact C5-T1 and intact from L2-S1. Reflexes 2/4 in bilateral upper and lower extremities. Negative Hoffmans, babinski, and clonus signs. Psychiatric: Cooperative, appropriate mood & affect, normal judgment. - Labs CBC & Chem 7: 05/13/23 20:08 05/13/23 12:24 Labs: Abnormal Lab Results - Last 24 Hours (Table) 05/11/23 05/13/23 05/13/23 Range/Units 08:05 05:26 12:24 WBC (3.8-10.6) k/uL RBC (4.30-5.90) m/uL Hgb (13.0-17.5) gm/dL Hct (39.0-53.0) % MCV (80.0-100.0) fL MCH (25.0-35.0) pg MCHC (31.0-37.0) g/dL RDW (11.5-15.5) % Plt Count (150-450) k/uL Chloride 111 H (98-107) mmol/L Glucose 108 H (74-99) mg/dL Calcium 7.5 L (8.4-10.2) mg/dL Iron 11 L (65-175) UG/DL % Saturation 3.01 L (15.00-50.00) Crossmatch See Detail 05/13/23 05/13/23 Range/Units 12:24 20:08 WBC 13.4 H 14.3 H (3.8-10.6) k/uL RBC 3.02 L 3.80 L (4.30-5.90) m/uL Hgb 7.0 L 9.0 L D (13.0-17.5) gm/dL Hct 23.5 L 29.5 L (39.0-53.0) % MCV 77.7 L 77.6 L (80.0-100.0) fL MCH 23.1 L 23.8 L (25.0-35.0) pg MCHC 29.7 L 30.7 L (31.0-37.0) g/dL RDW 21.2 H 20.6 H (11.5-15.5) % Plt Count 127 L 121 L (150-450) k/uL Chloride (98-107) mmol/L Glucose (74-99) mg/dL Calcium (8.4-10.2) mg/dL Iron (65-175) UG/DL % Saturation (15.00-50.00) Crossmatch Assessment and Plan Assessment: Postop day 3: [id number] decompression and fusion Severe lumbar spondylosis with stenosis Bilateral lower extremity radiculopathy Post-Op anemia: expected outcome Plan: -Appreciate is consultant and team management. -Continue to monitor hemoglobin and BP -Activity: Ambulate QID, OOB all meals, up and about, limit lifting bending twisting to less than 5 lbs. Use walker or cane if needed for stability. -Daily PT/OT, increase ambulation strength and balance. -Brace when up and about, not needed in bed or chair -Pain control: Adequate at this time -Meds: reviewed -GI ppx: senna, Miralax -DVT PPX: Heparin -Hygiene: Shower today. Maintain dressing clean and dry. Meticulous cleaning after BMs away from the incision site -Encourage IS 10x/hr -Dispo: Clinically pending *I reviewed and discussed this case with my attending Dr. Yao, whom has reviewed this chart and films and is in agreement with assessment and plan of care as outlined above. I have personally seen and examined the patient, performed the documentation and the assessment and plan as written. Number of minutes spent on the visit: 20m.
[2023-05-14 08:08] LABS: Anisocytosis Moderate; HCT 25.5 % (39.0-53.0); Hypochromasia Marked; MCH 23.9 pg (25.0-35.0); MCHC 31.2 g/dL (31.0-37.0); MCV 76.6 fL (80.0-100.0); Mean Platelet Volume 8.8; Microcytosis Moderate; Platelet Count 115 k/uL (150-450); Poikilocytosis Moderate; RBC 3.33 m/uL (4.30-5.90); RDW 21.1 % (11.5-15.5); WBC 13.6 k/uL (3.8-10.6)
[2023-05-14 08:14] LABS: African American GFR (CKD) >90 (>60 ml/min/1.73 sqM); Anion Gap 5 mmol/L; Blood Urea Nitrogen 8 mg/dL (9-20); Calcium 7.4 mg/dL (8.4-10.2); Carbon Dioxide 23 mmol/L (22-30); Chloride 108 mmol/L (98-107); Glucose 107 mg/dL (74-99); Non-African American GFR(CKD) >90 (>60 ml/min/1.73 sqM); Potassium 3.7 mmol/L (3.5-5.1); Sodium 136 mmol/L (137-145)
--- NOTE | 2023-05-14 09:18 | XR ---
EXAMINATION TYPE: XR chest 1V portable DATE OF EXAM: 05/14/2023 8:45 AM CLINICAL INDICATION:Male, 67 years old with history of SOB; COMPARISON: Chest radiographs from 05/11/2023. TECHNIQUE: XR chest 1V portable Frontal view of the chest. FINDINGS: Lungs/Pleura: Bibasilar airspace opacities. There is no evidence of pleural effusion, focal consolida tion, or pneumothorax. Pulmonary vascularity: Unremarkable. Heart/mediastinum: Cardiomediastinal silhouette is unremarkable. Musculoskeletal: No acute osseous pathology. There is lower spine fixation hardware is present. Other findings: None Lines/Tubes: Right internal jugular central venous catheter with distal tip at the cavoatrial junction. IMPRESSION: Bibasilar airspace opacities correlate for pulmonary vascular congestion versus developing pneumonia.
--- NOTE | 2023-05-14 12:42 | P.PN ---
Subjective Progress Note Date: 05/14/23 Patient is a 67-year-old male with a PMH of peripheral arterial disease status post left common iliac artery stenting, tobacco abuse, and COPD who was admitted for an elective lumbosacral osteotomy for deformity correction. The patient underwent the procedure on 05/11. The patient reportedly had 1 L of estimated blood loss and was given 2 units of PRBCs postoperatively. 05/12 Patient was seen and examined in the ICU. He reports 10/10 pain in his lumbar spine. Reports drinking 4 beers daily. He has no other complaints today. CBC WBC 10.7, Hg 6.5, Hct 21.8, MCV 74, Plt 141. BMP Cl 110, glu 116, Ca 7.1. Orthopedic surgery note reviewed, OK to start Heparin SQ tonight. 05/13 Patient was seen and examined. He reports continued 10/10 pain in his lumbar spine. 4 mg Dilaudid IV and 1 mg Ativan IV over the past 24H. He has no other complaints today. CBC WBC 17.5, Hg 7.5, Hct 24.8, MCV 76.3, Plt 146. BMP Na 136, Cl 108, BUN 8, glu 107, Ca 7.4. CT L spine shows appropriate hardware. 05/14 Patient was seen and examined. Pain better controlled. Noted to be hypotensive yesterday with SBP in the 70s requiring fluid resuscitation. Also hypoxic with O2 sat in the 80s requiring 4L NC. CXR ordered today shows pulmonary vascular congestion. Lasix 40 mg IV ordered x 1. CBC WBC 13.6, Hg 8, Hct 25.5, MCV 76.6, Plt 115. General: non toxic, no distress, appears at stated age Derm: warm, dry Head: atraumatic, normocephalic, symmetric Eyes: EOMI, no lid lag, anicteric sclera Mouth: no lip lesion, mucus membranes moist Cardiovascular: S1S2 tachycardic, no murmur Lungs: CTA bilateral, no rhonchi, no rales , no accessory muscle use Ext: no gross muscle atrophy, no edema, no contractures Neuro: no focal neuro deficits Psych: Alert, oriented, appropriate affect Based on my assessment of this patient, this patient meets a high complexity level of care. Patient is POD 2 lumbosacral osteotomy with severe exacerbation or progression of disease which poses a threat to life or bodily function. Acute hypoxic respiratory failure: Pulmonary vascular congestion on CXR. Stop IVF. Lasix 40 mg IV x 1 today. DuoNeb scheduled and PRN for SOB/wheezing. Encourage IS. Echocardiogram ordered. Hypotension with SIRS: With leukocytosis and tachycardia, he dose meet SIRS criteria. No obvious signs of infection. Currently on Cefazolin 2g IV TID. Procalcitonin ordered. Telemetry monitoring. Acute blood loss anemia: Expected result of surgery. Transfused 1 unit PRBC 05/12. Transfuse if Hg < 7. h/o EtOH abuse: CIWA protocol. Ativan PRN for alcohol withdrawal per CIWA scale. Thrombocytopenia: Likely due to EtOH abuse. Monitor while patient is on Heparin SQ. Chronic conditions: PAD, tobacco abuse, COPD CODE STATUS: FULL CODE DVT Prophylaxis: Heparin SQ GI Prophylaxis: Protonix Designated medical POA if patient is not able to make medical decisions for themselves: I have reviewed the following senior solutions consultant notes: Orthopedic surgery, Pulmonary note. I have reviewed the results of the following tests: CBC I have ordered the following tests: CXR I have discussed the care of this patient with the following independent historian: I have independently interpreted the following test below: CXR I have discussed the management of this patient with the following physician: Objective - Vital Signs Vital signs: Vital Signs Temp 99.0 F 05/14/23 07:26 Pulse 96 05/14/23 08:54 Resp 24 05/14/23 07:26 BP 100/60 05/14/23 07:26 Pulse Ox 96 05/14/23 07:26 FiO2 Intake & Output 05/13/23 05/14/23 05/14/23 18:59 06:59 18:59 Intake Total 310 480 Output Total 275 700 Balance 35 -220 Intake: Oral 480 Blood Product 310 Rc As-1 Unit 310 [id number] Output: Drainage 75 Back 75 Urine 200 700 Other: Voiding Method Toilet Toilet Urinal Urinal ABP, PAP, CO, CI - Last Documented Arterial Blood Pressure 206/206 - Labs CBC & Chem 7: 05/14/23 07:30 05/14/23 07:09 Labs: Abnormal Lab Results - Last 24 Hours (Table) 05/11/23 05/13/23 05/13/23 Range/Units 08:05 05:26 12:24 WBC (3.8-10.6) k/uL RBC (4.30-5.90) m/uL Hgb (13.0-17.5) gm/dL Hct (39.0-53.0) % MCV (80.0-100.0) fL MCH (25.0-35.0) pg MCHC (31.0-37.0) g/dL RDW (11.5-15.5) % Plt Count (150-450) k/uL Sodium (137-145) mmol/L Chloride 111 H (98-107) mmol/L BUN (9-20) mg/dL Glucose 108 H (74-99) mg/dL Calcium 7.5 L (8.4-10.2) mg/dL Iron 11 L (65-175) UG/DL % Saturation 3.01 L (15.00-50.00) Crossmatch See Detail 05/13/23 05/13/23 05/14/23 Range/Units 12:24 20:08 07:09 WBC 13.4 H 14.3 H (3.8-10.6) k/uL RBC 3.02 L 3.80 L (4.30-5.90) m/uL Hgb 7.0 L 9.0 L D (13.0-17.5) gm/dL Hct 23.5 L 29.5 L (39.0-53.0) % MCV 77.7 L 77.6 L (80.0-100.0) fL MCH 23.1 L 23.8 L (25.0-35.0) pg MCHC 29.7 L 30.7 L (31.0-37.0) g/dL RDW 21.2 H 20.6 H (11.5-15.5) % Plt Count 127 L 121 L (150-450) k/uL Sodium 136 L (137-145) mmol/L Chloride 108 H (98-107) mmol/L BUN 8 L (9-20) mg/dL Glucose 107 H (74-99) mg/dL Calcium 7.4 L (8.4-10.2) mg/dL Iron (65-175) UG/DL % Saturation (15.00-50.00) Crossmatch 05/14/23 Range/Units 07:30 WBC 13.6 H (3.8-10.6) k/uL RBC 3.33 L (4.30-5.90) m/uL Hgb 8.0 L (13.0-17.5) gm/dL Hct 25.5 L (39.0-53.0) % MCV 76.6 L (80.0-100.0) fL MCH 23.9 L (25.0-35.0) pg MCHC (31.0-37.0) g/dL RDW 21.1 H (11.5-15.5) % Plt Count 115 L (150-450) k/uL Sodium (137-145) mmol/L Chloride (98-107) mmol/L BUN (9-20) mg/dL Glucose (74-99) mg/dL Calcium (8.4-10.2) mg/dL Iron (65-175) UG/DL % Saturation (15.00-50.00) Crossmatch
[2023-05-14] MEDS: FUROSEMIDE 10 MG/ML 4 ML VIAL IV STA (13:16)
--- NOTE | 2023-05-14 13:32 | P.PN ---
Subjective Progress Note Date: 05/14/23 This is a 67-year-old white male with history of thoracic lumbar and lumbosacral intervertebral disc disease, thoracolumbar radiculopathy thoracolumbar kyphosis and back pain. Patient also had lumbar spondylosis, lumbar sacral spondylosis and atrophy of muscles of both lower extremities. He also had sacroiliac joint dysfunction. Yesterday, patient underwent [id number] decompression and fusion postoperatively, patient had to be admitted to the intensive care unit, and I was asked to see him on consultation. No major issues overnight, patient was extubated shortly after his surgery, and he tolerated extubation well. This morning the patient was seen in the ICU, has mostly some moderate back pain with radiation across the lower back, hemoglobin was noted to be low at 6.5, and he is receiving a unit of packed RBCs already. Apparently the patient had previous evaluation by Dr. Yeh in the office, and he cleared him for surgery as his PFT was unremarkable. Patient has a longstanding smoking history. And he continues to smoke until recently. But he has no cough no wheezing, no shortness of breath, no chest pain. WBC count this morning is 10.7 hemoglobin 6.5.Basic metabolic profile and renal profile is normal. Chest x-ray last night showed minimal basilar atelectasis, no evidence of congestive heart failure and no evidence of pneumonia, there is however slight prominence of the pulmonary vasculature The patient is seen today May 13, 2023 in follow-up on the regular medical floor. He is awake and alert no acute distress. Sitting up in a chair at the bedside. Maintaining good O2 saturations in the 90s on room air. Postoperative CT scan of the lumbar spine revealed no evidence of complication. Hardware appears intact. He is status post 3 units packed red blood cells this admission. Current hemoglobin 7.5. An additional unit ordered per orthopedic surgery. White count 17.5. Platelets 146. Sodium 138. Potassium 4.1. Bicarb 24. BUN 11. Creatinine 0.80. Glucose 108. He remains on Symbicort and DuoNeb ventilations. Pain is adequately controlled. NicoDerm patch in place. The patient is seen today May 14, 2023 in follow-up on the regular medical floor. He is sitting up in a chair at the bedside. Awake and alert in no acute distress. Good O2 saturations in the 90s on 2 L/min per nasal cannula. He is status post 4 units of packed red blood cells this admission. Current hemoglobin 8.0. Platelets 115. White count 13.6. Sodium 136. Potassium 3.7. Bicarb 23. BUN 8. Creatinine 0.77. Glucose 107. Chest x-ray shows bibasilar airspace opacities possible pulmonary vascular congestion versus atelectasis. He remains on DuoNeb and elations, Symbicort. Heparin for DVT prophylaxis. Neck NicoDerm patch in place. Antibiotics in the form of cefazolin. Objective - Vital Signs Vital signs: Vital Signs Temp 99.0 F 05/14/23 07:26 Pulse 100 05/14/23 12:54 Resp 24 05/14/23 08:00 BP 100/60 05/14/23 07:26 Pulse Ox 96 05/14/23 07:26 FiO2 Intake & Output 05/13/23 05/14/23 05/14/23 18:59 06:59 18:59 Intake Total 310 480 Output Total 275 700 550 Balance 35 -220 -550 Intake: Oral 480 Blood Product 310 Rc As-1 Unit 310 [id number] Output: Drainage 75 Back 75 Urine 200 700 550 Other: Voiding Method Toilet Toilet Toilet Urinal Urinal Urinal # Voids 1 ABP, PAP, CO, CI - Last Documented Arterial Blood Pressure 206/206 - Exam General: 67-year-old male patient, awake and alert, sitting up in a chair, on 2 L nasal cannula, and does not appear acutely ill. Skin: Skin is warm and dry and no rashes or lesions are noted. Eye: Pupils are equal, round and reactive to light, extra-ocular movements are intact; there is normal conjunctiva bilaterally. Ears, nose, mouth and throat: There are moist mucous membranes and no oral le sions. Neck: The neck is supple, there is no tenderness or JVD. Cardiovascular: There is a regular rate and rhythm. No murmur, rub or gallop is appreciated. Respiratory: Diminished breath sounds at the bases no rhonchi no wheezes Gastrointestinal: Soft, non-distended, non-tender abdomen without masses or organomegaly noted. There is no rebound or guarding present. Bowel sounds are unremarkable. Neurological: Alert and oriented x 3, no gross focal deficit Psychiatric: Normal mood, affect and normal mental status examination. Musculoskeletal: Surgical site clean dry well-approximated. Dressing dry and intact. Hemovac currently out - Labs CBC & Chem 7: 05/14/23 07:30 05/14/23 07:09 Labs: Abnormal Lab Results - Last 24 Hours (Table) 05/11/23 05/13/23 05/13/23 Range/Units 08:05 12:24 20:08 WBC 13.4 H 14.3 H (3.8-10.6) k/uL RBC 3.02 L 3.80 L (4.30-5.90) m/uL Hgb 7.0 L 9.0 L D (13.0-17.5) gm/dL Hct 23.5 L 29.5 L (39.0-53.0) % MCV 77.7 L 77.6 L (80.0-100.0) fL MCH 23.1 L 23.8 L (25.0-35.0) pg MCHC 29.7 L 30.7 L (31.0-37.0) g/dL RDW 21.2 H 20.6 H (11.5-15.5) % Plt Count 127 L 121 L (150-450) k/uL Sodium (137-145) mmol/L Chloride (98-107) mmol/L BUN (9-20) mg/dL Glucose (74-99) mg/dL Calcium (8.4-10.2) mg/dL Crossmatch See Detail 05/14/23 05/14/23 Range/Units 07:09 07:30 WBC 13.6 H (3.8-10.6) k/uL RBC 3.33 L (4.30-5.90) m/uL Hgb 8.0 L (13.0-17.5) gm/dL Hct 25.5 L (39.0-53.0) % MCV 76.6 L (80.0-100.0) fL MCH 23.9 L (25.0-35.0) pg MCHC (31.0-37.0) g/dL RDW 21.1 H (11.5-15.5) % Plt Count 115 L (150-450) k/uL Sodium 136 L (137-145) mmol/L Chloride 108 H (98-107) mmol/L BUN 8 L (9-20) mg/dL Glucose 107 H (74-99) mg/dL Calcium 7.4 L (8.4-10.2) mg/dL Crossmatch Assessment and Plan Assessment: Postop day 3: [id number] decompression and fusion Postoperative anemia requiring 4 units of packed red blood cells, current hemoglobin 8.0 Acute hypoxic respiratory failure possibly related to early pneumonia of the right lower lobe Severe lumbar spondylosis with stenosis Bilateral lower extremity radiculopathy Acute blood loss anemia, expected History of alcohol abuse, patient is on the CIRI protocol History of thrombocytopenia related to alcohol abuse History of COPD History of chronic and ongoing tobacco dependence History of peripheral vessel occlusive disease Plan: The patient was seen and evaluated Chest x-ray, labs and medications reviewed Suspicious for right lower lobe infiltrate Initiate Zosyn discontinue cefazolin Continue bronchodilators Encourage increased use of the incentive spirometer Increase his activity as tolerated We will continue to follow I have personally seen and examined the patient, performed the documentation and the assessment and plan as written. Number of minutes spent on the visit: 10.
[2023-05-14] MEDS: PIPERACILLIN-TAZOBACTAM 3.375 GM in SODIUM CHLORIDE 0.9% 100 ML IVPB SCH (16:06)
[2023-05-15 08:11] LABS: Anisocytosis Moderate; Basophils % (A) 0 %; Eosinophils # (A) 0.2 k/uL (0-0.7); Eosinophils % (A) 2 %; HCT 24.2 % (39.0-53.0); HGB 7.3 gm/dL (13.0-17.5); Hypochromasia Marked; Lymphocytes # (A) 1.1 k/uL (1.0-4.8); Lymphocytes % (A) 11 %; MCH 23.4 pg (25.0-35.0); MCHC 30.2 g/dL (31.0-37.0); MCV 77.5 fL (80.0-100.0); Mean Platelet Volume 7.6; Microcytosis Moderate; Monocytes # (A) 0.8 k/uL (0-1.0); Monocytes % (A) 8 %; Neutrophils # (A) 8.2 k/uL (1.3-7.7); Neutrophils % (A) 78 %; Platelet Count 110 k/uL (150-450); Poikilocytosis Moderate; RBC 3.12 m/uL (4.30-5.90); RDW 22.5 % (11.5-15.5); WBC 10.5 k/uL (3.8-10.6)
--- NOTE | 2023-05-15 08:27 | P.PN ---
Subjective Progress Note Date: 05/15/23 Principal diagnosis: Severe lumbar spondylosis with stenosis Bilateral lower extremity radiculopathy Patient seen and examined this morning. Patient is resting in bed. He continues to report mid-low back pain, although he states he feels better today. He states he slept well last night. Patient BP remains hypotensive at 99/58. Hgb 7.3, Hct 24.2 this morning. Informed patient that we will be transfusing 1 unit RBC today, patient verbalizes understanding. Surgical incision to thoracolumbar spine, dressing has been changed by nursing staff, ЕЛЕНА. LSO brace is at bedside. Continue to encourage patient to be up in chair for all meals and to be ambulating as tolerated. Patient reports use of incentive spirometer while awake. Patient is urinating without any difficulty. No bowel movement at this time, he states he is passing gas, medications will be adjusted. Objective - Vital Signs Vital signs: Vital Signs Temp 99.2 F 05/15/23 07:37 Pulse 99 05/15/23 07:37 Resp 20 05/15/23 07:37 BP 95/58 05/15/23 07:37 Pulse Ox 99 05/15/23 07:37 FiO2 Intake & Output 05/14/23 05/15/23 05/15/23 18:59 06:59 18:59 Intake Total 480 Output Total 2350 800 Balance -2350 -320 Intake: Oral 480 Output: Urine 2350 800 Other: Voiding Method Toilet Toilet Urinal Urinal # Voids 1 ABP, PAP, CO, CI - Last Documented Arterial Blood Pressure 206/206 - Exam Physical Examination General: The patient is awake and alert, in no acute distress Skin: Skin is warm and dry with no obvious rashes or lesions. Surgical incision to the thoracolumbar spine, dressing CDI. Eye: Pupils are equal, round and reactive to light, extra-ocular movements are intact; there is normal conjunctiva bilaterally. Neck: The neck is supple, there is no tenderness and ROM intact. Cardiovascular: There is a regular rate and rhythm. No murmur, rub or gallop is appreciated. Respiratory: Respirations are non-labored, breath sounds are equal. Gastrointestinal: Soft, non-distended, non-tender abdomen. Back: There is moderate tenderness to palpation in the paralumbar region, due to surgery. There is no obvious deformity . Musculoskeletal: ROM limited secondary to pain and stiffness from surgical procedure. Muscle strength in all major muscle groups of bilateral upper extremities 5/5, bilateral lower extremities 4/5. Neurological: CN 2-12 intact. There are no obvious motor or sensory deficits. Movement and coordination equal and intact. Sensory exam to light touch intact C5-T1 and intact from L2-S1. Reflexes 2/4 in bilateral upper and lower extremities. Negative Hoffmans, babinski, and clonus signs. Psychiatric: Cooperative, appropriate mood & affect, normal judgment. - Labs CBC & Chem 7: 05/15/23 07:33 05/14/23 07:09 Labs: Abnormal Lab Results - Last 24 Hours (Table) 05/15/23 Range/Units 07:33 RBC 3.12 L (4.30-5.90) m/uL Hgb 7.3 L (13.0-17.5) gm/dL Hct 24.2 L (39.0-53.0) % MCV 77.5 L (80.0-100.0) fL MCH 23.4 L (25.0-35.0) pg MCHC 30.2 L (31.0-37.0) g/dL RDW 22.5 H (11.5-15.5) % Plt Count 110 L (150-450) k/uL Neutrophils # 8.2 H (1.3-7.7) k/uL Assessment and Plan Assessment: Postop day 4: [id number] decompression and fusion Severe lumbar spondylosis with stenosis Bilateral lower extremity radiculopathy Post-Op anemia: expected outcome Plan: -Appreciate leasing consultant and team management. -Continue to monitor hemoglobin and BP, transfuse one unit RBC today. -Activity: Ambulate QID, OOB all meals, up and about, limit lifting bending twisting to less than 5 lbs. Use walker or cane if needed for stability. -Daily PT/OT, increase ambulation strength and balance. -Brace when up and about, not needed in bed or chair -Pain control: Adequate at this time -Meds: reviewed -GI ppx: senna, Dulcolax suppository, Miralax -DVT PPX: Heparin -Hygiene: Shower today. Maintain dressing clean and dry. Meticulous cleaning after BMs away from the incision site -Encourage IS 10x/hr -Dispo: Clinically pending *I reviewed and discussed this case with my attending Dr. Yao, whom has reviewed this chart and films and is in agreement with assessment and plan of care as outlined above. I have personally seen and examined the patient, performed the documentation and the assessment and plan as written. Number of minutes spent on the visit: 20m.
[2023-05-15 08:43] LABS: African American GFR (CKD) >90 (>60 ml/min/1.73 sqM); Anion Gap 7 mmol/L; Blood Urea Nitrogen 10 mg/dL (9-20); Calcium 7.6 mg/dL (8.4-10.2); Carbon Dioxide 23 mmol/L (22-30); Chloride 106 mmol/L (98-107); Glucose 105 mg/dL (74-99); Non-African American GFR(CKD) >90 (>60 ml/min/1.73 sqM); Potassium 3.5 mmol/L (3.5-5.1); Sodium 136 mmol/L (137-145)
[2023-05-15] MEDS: bisacodyL 10 MG SUPP RECTAL ONE (10:05)
[2023-05-15] MEDS: polyethylene glycoL 3350 17 GM POWD.PACK PO SCH (10:14)
--- NOTE | 2023-05-15 11:17 | XR ---
EXAMINATION TYPE: XR chest 1V portable DATE OF EXAM: 05/15/2023 COMPARISON: 05/14/2023 HISTORY: Cough TECHNIQUE: Single frontal view of the chest is obtained. FINDINGS: There is no focal air space opacity, pleural effusion, or pneumothorax seen. The cardiac silhouette size is within normal limits. The osseous structures are intact. A chronic rib deformiti es are stable. Postoperative changes of the vertebral column. Arthropathy of the shoulder. Suspect un derlying COPD. And a 5 mm nodule left angle too small to characterize possibly tiny granuloma. IMPRESSION: No acute process.
--- NOTE | 2023-05-15 13:10 | P.PN ---
Subjective Progress Note Date: 05/15/23 This is a 67-year-old white male with history of thoracic lumbar and lumbosacral intervertebral disc disease, thoracolumbar radiculopathy thoracolumbar kyphosis and back pain. Patient also had lumbar spondylosis, lumbar sacral spondylosis and atrophy of muscles of both lower extremities. He also had sacroiliac joint dysfunction. Yesterday, patient underwent [id number] decompression and fusion postoperatively, patient had to be admitted to the intensive care unit, and I was asked to see him on consultation. No major issues overnight, patient was extubated shortly after his surgery, and he tolerated extubation well. This morning the patient was seen in the ICU, has mostly some moderate back pain with radiation across the lower back, hemoglobin was noted to be low at 6.5, and he is receiving a unit of packed RBCs already. Apparently the patient had previous evaluation by Dr. Yeh in the office, and he cleared him for surgery as his PFT was unremarkable. Patient has a longstanding smoking history. And he continues to smoke until recently. But he has no cough no wheezing, no shortness of breath, no chest pain. WBC count this morning is 10.7 hemoglobin 6.5.Basic metabolic profile and renal profile is normal. Chest x-ray last night showed minimal basilar atelectasis, no evidence of congestive heart failure and no evidence of pneumonia, there is however slight prominence of the pulmonary vasculature The patient is seen today May 13, 2023 in follow-up on the regular medical floor. He is awake and alert no acute distress. Sitting up in a chair at the bedside. Maintaining good O2 saturations in the 90s on room air. Postoperative CT scan of the lumbar spine revealed no evidence of complication. Hardware appears intact. He is status post 3 units packed red blood cells this admission. Current hemoglobin 7.5. An additional unit ordered per orthopedic surgery. White count 17.5. Platelets 146. Sodium 138. Potassium 4.1. Bicarb 24. BUN 11. Creatinine 0.80. Glucose 108. He remains on Symbicort and DuoNeb ventilations. Pain is adequately controlled. NicoDerm patch in place. The patient is seen today May 14, 2023 in follow-up on the regular medical floor. He is sitting up in a chair at the bedside. Awake and alert in no acute distress. Good O2 saturations in the 90s on 2 L/min per nasal cannula. He is status post 4 units of packed red blood cells this admission. Current hemoglobin 8.0. Platelets 115. White count 13.6. Sodium 136. Potassium 3.7. Bicarb 23. BUN 8. Creatinine 0.77. Glucose 107. Chest x-ray shows bibasilar airspace opacities possible pulmonary vascular congestion versus atelectasis. He remains on DuoNeb and elations, Symbicort. Heparin for DVT prophylaxis. Neck NicoDerm patch in place. Antibiotics in the form of cefazolin. The patient is seen today May 15, 2023 in follow-up on the regular medical floor. He is currently sitting up in bed having breakfast. Awake and alert in no acute distress. Maintaining good O2 saturations in the 90s on room air. Denies any worsening shortness of breath, cough or congestion. His pain is adequately controlled. He remains on antibiotics in the form of Zosyn. Continued on bronchodilators. NicoDerm patch in place. Heparin for DVT prophylaxis. Follow-up chest x-ray reveals no acute pulmonary process. White count 10.5. Hemoglobin 7.3. Platelets 110. Sodium 136. Potassium 3.5. Bicarb 23. BUN 10. Creatinine 0.78. Glucose 105. Procalcitonin 0.15. Objective - Vital Signs Vital signs: Vital Signs Temp 99.2 F 05/15/23 07:37 Pulse 104 H 05/15/23 12:37 Resp 20 05/15/23 07:37 BP 95/58 05/15/23 07:37 Pulse Ox 99 05/15/23 07:37 FiO2 Intake & Output 05/14/23 05/15/23 05/15/23 18:59 06:59 18:59 Intake Total 480 Output Total 2350 800 Balance -2350 -320 Intake: Oral 480 Output: Urine 2350 800 Other: Voiding Method Toilet Toilet Toilet Urinal Urinal Urinal # Voids 1 2 # Bowel Movements 1 ABP, PAP, CO, CI - Last Documented Arterial Blood Pressure 206/206 - Exam General: Pleasant 67-year-old male patient, awake and alert, on room air, and does not appear acutely ill. Skin: Skin is warm and dry and no rashes or lesions are noted. Eye: Pupils are equal, round and reactive to light, extra-ocular movements are intact; there is normal conjunctiva bilaterally. Ears, nose, mouth and throat: There are moist mucous membranes and no oral lesions. Neck: The neck is supple, there is no tenderness or JVD. Cardiovascular: There is a regular rate and rhythm. No murmur, rub or gallop is appreciated. Respiratory: Diminished breath sounds at the bases no rhonchi no wheezes Gastrointestinal: Soft, non-distended, non-tender abdomen without masses or organomegaly noted. There is no rebound or guarding present. Bowel sounds are unremarkable. Neurological: Alert and oriented x 3, no gross focal deficit Psychiatric: Normal mood, affect and normal mental status examination. Musculoskeletal: Surgical site clean dry well-approximated. Dressing dry and intact. Hemovac currently out - Labs CBC & Chem 7: 05/15/23 07:33 05/15/23 07:33 Labs: Abnormal Lab Results - Last 24 Hours (Table) 05/15/23 05/15/23 05/15/23 Range/Units 06:59 07:33 07:33 RBC 3.12 L (4.30-5.90) m/uL Hgb 7.3 L (13.0-17.5) gm/dL Hct 24.2 L (39.0-53.0) % MCV 77.5 L (80.0-100.0) fL MCH 23.4 L (25.0-35.0) pg MCHC 30.2 L (31.0-37.0) g/dL RDW 22.5 H (11.5-15.5) % Plt Count 110 L (150-450) k/uL Neutrophils # 8.2 H (1.3-7.7) k/uL Sodium 136 L (137-145) mmol/L Glucose 105 H (74-99) mg/dL Calcium 7.6 L (8.4-10.2) mg/dL Procalcitonin 0.15 H (0.02-0.09) ng/mL Crossmatch 05/15/23 Range/Units 10:26 RBC (4.30-5.90) m/uL Hgb (13.0-17.5) gm/dL Hct (39.0-53.0) % MCV (80.0-100.0) fL MCH (25.0-35.0) pg MCHC (31.0-37.0) g/dL RDW (11.5-15.5) % Plt Count (150-450) k/uL Neutrophils # (1.3-7.7) k/uL Sodium (137-145) mmol/L Glucose (74-99) mg/dL Calcium (8.4-10.2) mg/dL Procalcitonin (0.02-0.09) ng/mL Crossmatch See Detail Assessment and Plan Assessment: Postop day 4: [id number] decompression and fusion Postoperative anemia requiring 4 units of packed red blood cells, current hemoglobin 7.3 Acute hypoxic respiratory failure possibly related to early pneumonia of the right lower lobe Severe lumbar spondylosis with stenosis Bilateral lower extremity radiculopathy Acute blood loss anemia, expected History of alcohol abuse, patient is on the CIWA protocol History of thrombocytopenia related to alcohol abuse History of COPD History of chronic and ongoing tobacco dependence History of peripheral vessel occlusive disease Plan: The patient was seen and evaluated Chest x-ray, labs and medications reviewed Remains on antibiotics and bronchodilators Encourage increased use of the incentive spirometer Increase his activity as tolerated Plan is for subacute rehab at discharge I have personally seen and examined the patient, performed the documentation and the assessment and plan as written. Number of minutes spent on the visit: 10.
--- NOTE | 2023-05-15 17:22 | P.PN ---
Subjective Progress Note Date: 05/15/23 Patient is a 67-year-old male with a PMH of peripheral arterial disease status post left common iliac artery stenting, tobacco abuse, and COPD who was admitted for an elective lumbosacral osteotomy for deformity correction. The patient underwent the procedure on 05/11. The patient reportedly had 1 L of estimated blood loss and was given 2 units of PRBCs postoperatively. 05/12 Started on CIWA protocol and Ativan PRN for history of EtOH abuse and concerns for withdrawal. 05/13 Noted to be hypotensive and hypoxic requiring supplemental O2 and IV fluids. 05/14 CXR showed bibasilar opacities. Given one dose of Lasix 40 mg IV. Given leukocytosis, he met sepsis criteria and was started on Zosyn by pulmonology for concerns of aspiration PNA. 05/15 Patient was seen and examined. Pain better controlled. BP 95/58 and HR 99 today. 99% on 3L NC. CXR ordered today shows hyperinflated lungs with prominent pulmonary vasculature. Maintained on Zosyn (D2). CBC Hg 7.3, Hct 24.2, MCV 77.5, Plt 110. BMP Na 136, glu 105, Ca 7.6. Procal 0.15. General: non toxic, no distress, appears at stated age Derm: warm, dry Head: atraumatic, normocephalic, symmetric Eyes: EOMI, no lid lag, anicteric sclera Mouth: no lip lesion, mucus membranes moist Cardiovascular: S1S2 tachycardic, no murmur Lungs: CTA bilateral, no rhonchi, no rales , no accessory muscle use Ext: no gross muscle atrophy, no edema, no contractures Neuro: no focal neuro deficits Psych: Alert, oriented, appropriate affect Based on my assessment of this patient, this patient meets a high complexity level of care. Patient is POD 3 lumbosacral osteotomy with severe exacerbation or progression of disease which poses a threat to life or bodily function. Acute hypoxic respiratory failure: Pulmonary vascular congestion on CXR. Also concerns for aspiration PNA. Lasix 40 mg IV x 1 05/14. Started on Zosyn 3.375 g IV TID (D2). DuoNeb scheduled and PRN for SOB/wheezing. Encourage IS. Echocardiogram pending. SIRS: With leukocytosis and tachycardia, he dose meet SIRS criteria. Procal mildly elevated at 0.15. Currently on Zosyn 3.375 g IV TID (D2). BCx ordered. Telemetry monitoring. Acute blood loss anemia: Expected result of surgery. Transfused 1 unit PRBC 05/12. Transfuse if Hg < 7. h/o EtOH abuse: CIWA protocol. Ativan PRN for alcohol withdrawal per CIWA scale. Thrombocytopenia: Likely due to EtOH abuse. Monitor while patient is on Heparin SQ. Chronic conditions: PAD, tobacco abuse, COPD CODE STATUS: FULL CODE DVT Prophylaxis: Heparin SQ GI Prophylaxis: Protonix Designated medical POA if patient is not able to make medical decisions for themselves: I have reviewed the following retail wireless sales consultant notes: Orthopedic surgery, Pulmonary note. I have reviewed the results of the following tests: CBC, BMP. I have ordered the following tests: CBC. I have discussed the care of this patient with the following independent historian: I have independently interpreted the following test below: CXR I have discussed the management of this patient with the following physician: Objective - Vital Signs Vital signs: Vital Signs Temp 99.2 F 05/15/23 07:37 Pulse 104 H 05/15/23 09:19 Resp 20 05/15/23 07:37 BP 95/58 05/15/23 07:37 Pulse Ox 99 05/15/23 07:37 FiO2 Intake & Output 05/14/23 05/15/23 05/15/23 18:59 06:59 18:59 Intake Total 480 Output Total 2350 800 Balance -2350 -320 Intake: Oral 480 Output: Urine 2350 800 Other: Voiding Method Toilet Toilet Toilet Urinal Urinal Urinal # Voids 1 2 # Bowel Movements 1 ABP, PAP, CO, CI - Last Documented Arterial Blood Pressure 206/206 - Labs CBC & Chem 7: 05/15/23 07:33 05/15/23 07:33 Labs: Abnormal Lab Results - Last 24 Hours (Table) 05/15/23 05/15/23 05/15/23 Range/Units 06:59 07:33 07:33 RBC 3.12 L (4.30-5.90) m/uL Hgb 7.3 L (13.0-17.5) gm/dL Hct 24.2 L (39.0-53.0) % MCV 77.5 L (80.0-100.0) fL MCH 23.4 L (25.0-35.0) pg MCHC 30.2 L (31.0-37.0) g/dL RDW 22.5 H (11.5-15.5) % Plt Count 110 L (150-450) k/uL Neutrophils # 8.2 H (1.3-7.7) k/uL Sodium 136 L (137-145) mmol/L Glucose 105 H (74-99) mg/dL Calcium 7.6 L (8.4-10.2) mg/dL Procalcitonin 0.15 H (0.02-0.09) ng/mL Crossmatch 05/15/23 Range/Units 10:26 RBC (4.30-5.90) m/uL Hgb (13.0-17.5) gm/dL Hct (39.0-53.0) % MCV (80.0-100.0) fL MCH (25.0-35.0) pg MCHC (31.0-37.0) g/dL RDW (11.5-15.5) % Plt Count (150-450) k/uL Neutrophils # (1.3-7.7) k/uL Sodium (137-145) mmol/L Glucose (74-99) mg/dL Calcium (8.4-10.2) mg/dL Procalcitonin (0.02-0.09) ng/mL Crossmatch See Detail
--- NOTE | 2023-05-15 18:06 | CA ---
Transthoracic Echo Report Name: Lenny Hester Age: 67 Gender: M : 1955 Exam Date: 05/15/2023 11:39 Exam Location: [facility] Ht (in): 69 Wt (lb): 222 Ordering Physician: Joshua Olivares MD Attending/Referring Phys: Hospice Aide Gracia Souza RDCS Procedure CPT: Indications: chf Cardiac Hx: Technical Quality: Technically difficult study Contrast 1: Definity Total Dose (mL): 2 Contrast 2: Total Dose (mL): MEASUREMENTS (Male / Female) Normal Values 2D ECHO LV Diastolic Diameter PLAX 5.6 cm 4.2 - 5.9 / 3.9 - 5.3 cm LV Systolic Diameter PLAX 3.9 cm IVS Diastolic Thickness 0.9 cm 0.6 - 1.0 / 0.6 - 0.9 cm LVPW Diastolic Thickness 1.0 cm 0.6 - 1.0 / 0.6 - 0.9 cm LV Relative Wall Thickness 0.3 RV Internal Dim ED PLAX 4.0 cm LA Systolic Diameter LX 4.0 cm 3.0 - 4.0 / 2.7 - 3.8 cm LV Diastolic Volume MOD BP 45.7 cm??? 67 - 155 / 56 - 104 cm??? LV Systolic Volume MOD BP 18.4 cm??? - 58 / 19 - 49 cm??? LV Ejection Fraction MOD BP 59.7 % >= 55 % LV Cardiac Index MOD BP 1262.3 cm???/min???m??? LV Diastolic Volume MOD 4C 41.4 cm??? LV Systolic Volume MOD 4C 17.4 cm??? LV Ejection Fraction MOD 4C 57.9 % LV Cardiac Index MOD 4C 1108.4 cm???/min???m??? LV Diastolic Length 4C 6.5 cm LV Systolic Length 4C 5.6 cm LV Diastolic Volume MOD 2C 43.6 cm??? LV Systolic Volume MOD 2C 17.7 cm??? LV Ejection Fraction MOD 2C 59.4 % LV Cardiac Index MOD 2C 1198.0 cm???/min???m??? LV Diastolic Length 2C 7.7 cm LV Systolic Length 2C 6.4 cm LA Volume 55.3 cm??? 18 - 58 / 22 - 52 cm??? LA Volume Index 24.6 cm???/m??? 16 - 28 cm???/m??? M-MODE Aortic Root Diameter MM 3.2 cm MV E Point Septal Separation 0.3 cm AV Cusp Separation MM 2.5 cm DOPPLER AV Peak Velocity 181.2 cm/s AV Peak Gradient 13.1 mmHg AV Mean Velocity 119.9 cm/s AV Mean Gradient 6.7 mmHg AV Velocity Time Integral 24.9 cm LVOT Peak Velocity 168.8 cm/s LVOT Peak Gradient 11.4 mmHg MV Area PHT 3.7 cm??? Mitral E Point Velocity 95.3 cm/s Mitral A Point Velocity 102.8 cm/s Mitral E to A Ratio 0.9 MV Deceleration Time 207.8 ms TR Peak Velocity 324.3 cm/s TR Peak Gradient 42.1 mmHg Right Ventricular Systolic Press 45.9 mmHg FINDINGS Left Ventricle Left ventricular ejection fraction is estimated at 60-65 %. Left ventricular cavity size normal. Left ventricular wall thickness normal. Normal left ventricular wall motion. Right Ventricle Moderate right ventricular dilatation. Moderate pulmonary hypertension. Right ventricular systolic pressure estimated at 46 mm hg. Right Atrium Right atrium not well visualized. Left Atrium Mildly increased left atrial area. Mitral Valve Structurally normal mitral valve. No mitral stenosis, regurgitation or prolapse. Aortic Valve Trileaflet aortic valve. No aortic valve stenosis or regurgitation.aortic valve sclerosis. Tricuspid Valve Structurally normal tricuspid valve. Mild tricuspid regurgitation. Pulmonic Valve Structurally normal pulmonic valve. No pulmonic regurgitation. Pericardium No pericardial effusion.echo free space anterior to the right ventricle likely represents a fat pad. Aorta Normal size aortic root and proximal ascending aorta. CONCLUSIONS Technically difficult study. Definity ECHO contrast used for improved visualization of the endocardial borders (inadequate visualization of two or more contiguous segments). Normal left ventricle size and systolic function Limited Doppler study with mild tricuspid regurgitation and moderate pulmonary hypertension Previewed by: Dr. Fabienne Morgan MD (Electronically Signed) Final Date: 15 May 2023 18:05
[2023-05-15] MEDS: SODIUM CHLORIDE 0.9% 1,000 ML IV SCH (22:30)
[2023-05-16 05:55] LABS: Anisocytosis Moderate; HCT 29.5 % (39.0-53.0); Hypochromasia Marked; MCHC 31.1 g/dL (31.0-37.0); MCV 80.5 fL (80.0-100.0); Mean Platelet Volume 8.6; Microcytosis Moderate; Platelet Count 131 k/uL (150-450); Poikilocytosis Moderate; RBC 3.66 m/uL (4.30-5.90); WBC 9.1 k/uL (3.8-10.6)
[2023-05-16 06:13] LABS: HGB 9.2 gm/dL (13.0-17.5)
--- NOTE | 2023-05-16 08:15 | P.PN ---
Subjective Progress Note Date: 05/16/23 Principal diagnosis: Severe lumbar spondylosis with stenosis Bilateral lower extremity radiculopathy Patient seen and examined this morning. Patient is resting in bed. He continues to report mid-low back pain, controlled on current regimen. Patient did receive 2 units of blood last night, current Hgb 9.2. Patient BP remains hypotensive at 92/57. Fluids were ordered to run at 100ml/hr, upon entering room IV was set at 20ml/hr. Link Cutter changed this to what has been ordered. Surgical incision to thoracolumbar spine, edges are well approximated with rocio intact. No active drainage, new surgical dressing applied. Continue to encourage patient to be up in chair for all meals and to be ambulating as tolerated. Patient reports use of incentive spirometer while awake. Patient is urinating without any difficulty. He reports he had a BM yesterday and was having some cramping this morning. Patient was assisted to restroom and was instructed to use call light when he was completed. He verbalizes understanding. Objective - Vital Signs Vital signs: Vital Signs Temp 99.8 F H 05/16/23 02:00 Pulse 90 05/16/23 02:00 Resp 18 05/16/23 02:00 BP 92/57 05/16/23 02:00 Pulse Ox 95 05/16/23 02:00 FiO2 Intake & Output 05/15/23 05/16/23 05/16/23 18:59 06:59 18:59 Intake Total 580 620 Output Total 250 200 Balance 330 420 Intake: Oral 580 Blood Product 0 620 Rc As-1 Unit 310 [id number] Rc As-1 Unit 0 310 [id number] Output: Urine 250 200 Other: Voiding Method Toilet Toilet Urinal Urinal # Voids 1 3 # Bowel Movements 1 ABP, PAP, CO, CI - Last Documented Arterial Blood Pressure 206/206 - Exam Physical Examination General: The patient is awake and alert, in no acute distress Skin: Skin is warm and dry with no obvious rashes or lesions. Surgical incision to the thoracolumbar spine, edges are well approximated with rocio intact. No active drainage. New surgical dressing applied. Eye: Pupils are equal, round and reactive to light, extra-ocular movements are intact; there is normal conjunctiva bilaterally. Neck: The neck is supple, there is no tenderness and ROM intact. Cardiovascular: There is a regular rate and rhythm. No murmur, rub or gallop is appreciated. Respiratory: Respirations are non-labored, breath sounds are equal. Gastrointestinal: Soft, non-distended, non-tender abdomen. Back: There is moderate tenderness to palpation in the paralumbar region, due to surgery. There is no obvious deformity . Musculoskeletal: ROM limited secondary to pain and stiffness from surgical pro cedure. Muscle strength in all major muscle groups of bilateral upper extremities 5/5, bilateral lower extremities 4/5. Neurological: CN 2-12 intact. There are no obvious motor or sensory deficits. Movement and coordination equal and intact. Sensory exam to light touch intact C5-T1 and intact from L2-S1. Reflexes 2/4 in bilateral upper and lower extremities. Negative Hoffmans, babinski, and clonus signs. Psychiatric: Cooperative, appropriate mood & affect, normal judgment. - Labs CBC & Chem 7: 05/16/23 05:29 05/15/23 07:33 Labs: Abnormal Lab Results - Last 24 Hours (Table) 05/15/23 05/15/23 05/15/23 Range/Units 06:59 07:33 07:33 RBC 3.12 L (4.30-5.90) m/uL Hgb 7.3 L (13.0-17.5) gm/dL Hct 24.2 L (39.0-53.0) % MCV 77.5 L (80.0-100.0) fL MCH 23.4 L (25.0-35.0) pg MCHC 30.2 L (31.0-37.0) g/dL RDW 22.5 H (11.5-15.5) % Plt Count 110 L (150-450) k/uL Neutrophils # 8.2 H (1.3-7.7) k/uL Sodium 136 L (137-145) mmol/L Glucose 105 H (74-99) mg/dL Calcium 7.6 L (8.4-10.2) mg/dL Procalcitonin 0.15 H (0.02-0.09) ng/mL Crossmatch 05/15/23 05/16/23 Range/Units 10:26 05:29 RBC 3.66 L (4.30-5.90) m/uL Hgb 9.2 L D (13.0-17.5) gm/dL Hct 29.5 L (39.0-53.0) % MCV (80.0-100.0) fL MCH (25.0-35.0) pg MCHC (31.0-37.0) g/dL RDW 22.0 H (11.5-15.5) % Plt Count 131 L (150-450) k/uL Neutrophils # (1.3-7.7) k/uL Sodium (137-145) mmol/L Glucose (74-99) mg/dL Calcium (8.4-10.2) mg/dL Procalcitonin (0.02-0.09) ng/mL Crossmatch See Detail Assessment and Plan Assessment: Postop day 5: [id number] decompression and fusion Severe lumbar spondylosis with stenosis Bilateral lower extremity radiculopathy Post-Op anemia: expected outcome Plan: -Appreciate cyber security consultant and team management. -Continue to monitor hemoglobin and BP -0.9 Sodium Chloride has been ordered to run at 100ml/hr. -Activity: Ambulate QID, OOB all meals, up and about, limit lifting bending t wisting to less than 5 lbs. Use walker or cane if needed for stability. -Daily PT/OT, increase ambulation strength and balance. -Brace when up and about, not needed in bed or chair -Pain control: Adequate at this time -Meds: reviewed -GI ppx: senna, Dulcolax suppository, Miralax -DVT PPX: Heparin -Hygiene: Shower today. Maintain dressing clean and dry. Meticulous cleaning after BMs away from the incision site -Encourage IS 10x/hr -Dispo: Clinically pending *I reviewed and discussed this case with my attending Dr. Yao, whom has reviewed this chart and films and is in agreement with assessment and plan of care as outlined above. I have personally seen and examined the patient, performed the documentation and the assessment and plan as written. Number of minutes spent on the visit: 20m.
[2023-05-16] MEDS: DOCUSATE 100 MG CAP PO SCH (09:07)
[2023-05-16] MEDS: ALBUMIN HUMAN 25% 50 ML in EMPTY BAG 1 BAG IVPB SCH (09:15)
--- NOTE | 2023-05-16 11:13 | P.PN ---
Subjective Progress Note Date: 05/16/23 This is a 67-year-old white male with history of thoracic lumbar and lumbosacral intervertebral disc disease, thoracolumbar radiculopathy thoracolumbar kyphosis and back pain. Patient also had lumbar spondylosis, lumbar sacral spondylosis and atrophy of muscles of both lower extremities. He also had sacroiliac joint dysfunction. Yesterday, patient underwent [id number] decompression and fusion postoperatively, patient had to be admitted to the intensive care unit, and I was asked to see him on consultation. No major issues overnight, patient was extubated shortly after his surgery, and he tolerated extubation well. This morning the patient was seen in the ICU, has mostly some moderate back pain with radiation across the lower back, hemoglobin was noted to be low at 6.5, and he is receiving a unit of packed RBCs already. Apparently the patient had previous evaluation by Dr. Yeh in the office, and he cleared him for surgery as his PFT was unremarkable. Patient has a longstanding smoking history. And he continues to smoke until recently. But he has no cough no wheezing, no shortness of breath, no chest pain. WBC count this morning is 10.7 hemoglobin 6.5.Basic metabolic profile and renal profile is normal. Chest x-ray last night showed minimal basilar atelectasis, no evidence of congestive heart failure and no evidence of pneumonia, there is however slight prominence of the pulmonary vasculature The patient is seen today May 13, 2023 in follow-up on the regular medical floor. He is awake and alert no acute distress. Sitting up in a chair at the bedside. Maintaining good O2 saturations in the 90s on room air. Postoperative CT scan of the lumbar spine revealed no evidence of complication. Hardware appears intact. He is status post 3 units packed red blood cells this admission. Current hemoglobin 7.5. An additional unit ordered per orthopedic surgery. White count 17.5. Platelets 146. Sodium 138. Potassium 4.1. Bicarb 24. BUN 11. Creatinine 0.80. Glucose 108. He remains on Symbicort and DuoNeb ventilations. Pain is adequately controlled. NicoDerm patch in place. The patient is seen today May 14, 2023 in follow-up on the regular medical floor. He is sitting up in a chair at the bedside. Awake and alert in no acute distress. Good O2 saturations in the 90s on 2 L/min per nasal cannula. He is status post 4 units of packed red blood cells this admission. Current hemoglobin 8.0. Platelets 115. White count 13.6. Sodium 136. Potassium 3.7. Bicarb 23. BUN 8. Creatinine 0.77. Glucose 107. Chest x-ray shows bibasilar airspace opacities possible pulmonary vascular congestion versus atelectasis. He remains on DuoNeb and elations, Symbicort. Heparin for DVT prophylaxis. Neck NicoDerm patch in place. Antibiotics in the form of cefazolin. The patient is seen today May 15, 2023 in follow-up on the regular medical floor. He is currently sitting up in bed having breakfast. Awake and alert in no acute distress. Maintaining good O2 saturations in the 90s on room air. Denies any worsening shortness of breath, cough or congestion. His pain is adequately controlled. He remains on antibiotics in the form of Zosyn. Continued on bronchodilators. NicoDerm patch in place. Heparin for DVT prophylaxis. Follow-up chest x-ray reveals no acute pulmonary process. White count 10.5. Hemoglobin 7.3. Platelets 110. Sodium 136. Potassium 3.5. Bicarb 23. BUN 10. Creatinine 0.78. Glucose 105. Procalcitonin 0.15. The patient is seen today May 16, 2023 in follow-up on the regular medical floor. He is awake and alert no acute distress. Sitting up in bed. Denies any worsening shortness of breath, cough or congestion. His pain is adequately controlled. He has been up working with physical therapy. He is maintaining good O2 saturations in the 90s on room air. He is status post 6 units of packed red blood cells this admission. Current hemoglobin 9.2. Platelets 131. White count 9.1. He remains on DuoNeb ventilations, Symbicort. Continued on antibiotics in the form of Zosyn. NicoDerm patch in place. Heparin for DVT prophylaxis. Objective - Vital Signs Vital signs: Vital Signs Temp 98.7 F 05/16/23 08:00 Pulse 99 05/16/23 10:25 Resp 17 05/16/23 10:25 BP 97/64 05/16/23 08:00 Pulse Ox 96 05/16/23 08:00 FiO2 Intake & Output 05/15/23 05/16/23 05/16/23 18:59 06:59 18:59 Intake Total 580 620 Output Total 250 200 Balance 330 420 Intake: Oral 580 Blood Product 0 620 Rc As-1 Unit 310 [id number] Rc As-1 Unit 0 310 [id number] Output: Urine 250 200 Other: Voiding Method Toilet Toilet Toilet Urinal Urinal Urinal # Voids 1 3 # Bowel Movements 1 ABP, PAP, CO, CI - Last Documented Arterial Blood Pressure 206/206 - Exam General: Pleasant 67-year-old male patient, awake and alert, on room air, sitting up at the bedside, does not appear acutely ill. Skin: Skin is warm and dry and no rashes or lesions are noted. Eye: Pupils are equal, round and reactive to light, extra-ocular movements are intact; there is normal conjunctiva bilaterally. Ears, nose, mouth and throat: There are moist mucous membranes and no oral lesions. Neck: The neck is supple, there is no tenderness or JVD. Cardiovascular: There is a regular rate and rhythm. No murmur, rub or gallop is appreciated. Respiratory: Diminished breath sounds at the bases no rhonchi no wheezes Gastrointestinal: Soft, non-distended, non-tender abdomen without masses or organomegaly noted. There is no rebound or guarding present. Bowel sounds are unremarkable. Neurological: Alert and oriented x 3, no gross focal deficit Psychiatric: Normal mood, affect and normal mental status examination. Musculoskeletal: Surgical site clean dry well-approximated. Dressing dry and intact. - Labs CBC & Chem 7: 05/16/23 05:29 05/15/23 07:33 Labs: Abnormal Lab Results - Last 24 Hours (Table) 05/15/23 05/15/23 05/16/23 Range/Units 06:59 10:26 05:29 RBC 3.66 L (4.30-5.90) m/uL Hgb 9.2 L D (13.0-17.5) gm/dL Hct 29.5 L (39.0-53.0) % RDW 22.0 H (11.5-15.5) % Plt Count 131 L (150-450) k/uL Procalcitonin 0.15 H (0.02-0.09) ng/mL Crossmatch See Detail Assessment and Plan Assessment: Postop day 5: [id number] decompression and fusion Postoperative anemia requiring 6 units of packed red blood cells, current hemoglobin 9.2 Acute hypoxic respiratory failure possibly related to early pneumonia of the right lower lobe, recovered Severe lumbar spondylosis with stenosis Bilateral lower extremity radiculopathy Acute blood loss anemia, expected History of alcohol abuse, patient is on the CIWA protocol History of thrombocytopenia related to alcohol abuse History of COPD History of chronic and ongoing tobacco dependence History of peripheral vessel occlusive disease Plan: The patient was seen and evaluated Labs and medications reviewed Remains on antibiotics and bronchodilators NicoDerm patch remains in place Again encouraged regarding the importance of complete smoking cessation Encourage increased use of the incentive spirometer Increase his activity as tolerated This patient was seen independently by the pulmonary nurse practitioner addressing pulmonary issues I have personally seen and examined the patient, performed the documentation and the assessment and plan as written. Number of minutes spent on the visit: 24.
[2023-05-16] MEDS: polyethylene glycoL 3350 17 GM POWD.PACK PO SCH (11:57)
--- NOTE | 2023-05-16 11:59 | P.PN ---
Subjective Progress Note Date: 05/16/23 Patient is a 67-year-old male with a PMH of peripheral arterial disease status post left common iliac artery stenting, tobacco abuse, and COPD who was admitted for an elective lumbosacral osteotomy for deformity correction. The patient underwent the procedure on 05/11. The patient reportedly had 1 L of estimated blood loss and was given 2 units of PRBCs postoperatively. 05/12 Started on CIWA protocol and Ativan PRN for history of EtOH abuse and concerns for withdrawal. Hg 6.5. Given 1 unit PRBC. 05/13 Noted to be hypotensive and hypoxic requiring supplemental O2 and IV fluids. Hg 7. Given 1 unit PRBC. 05/14 CXR showed bibasilar opacities. Given one dose of Lasix 40 mg IV. Given leukocytosis, he met sepsis criteria and was started on Zosyn by pulmonology for concerns of aspiration PNA. 05/15 Maintained on Zosyn (D2). Procal 0.15. Hg 7.3. Given 2 units PRBC. 05/16 Patient was seen and examined. He reports 10/10 back pain especially with movement. Breathing is much better. Having bowel movements. Echo was done which shows EF 60-65%, mild TR and moderate pulmonary hypertension. He would like to avoid SNF as much as possible. Has 5 stairs to walk into his home. Working with PT and OT. CBC Hg 9.2 Hct 29.5 Plt 131. General: non toxic, no distress, appears at stated age Derm: warm, dry Head: atraumatic, normocephalic, symmetric Eyes: EOMI, no lid lag, anicteric sclera Mouth: no lip lesion, mucus membranes moist Cardiovascular: S1S2 tachycardic, no murmur Lungs: CTA bilateral, no rhonchi, no rales , no accessory muscle use Ext: no gross muscle atrophy, no edema, no contractures Neuro: no focal neuro deficits Psych: Alert, oriented, appropriate affect Based on my assessment of this patient, this patient meets a moderate complexity level of care. Patient is POD 5 lumbosacral osteotomy with severe exacerbation or progression of disease which poses a threat to life or bodily function. Acute hypoxic respiratory failure: Pulmonary vascular congestion on CXR. Also concerns for aspiration PNA. Lasix 40 mg IV x 1 05/14. Started on Zosyn 3.375 g IV TID (D3). DuoNeb scheduled and PRN for SOB/wheezing. Encourage IS. Echocardiogram as above. Attempt to wean O2. Pulmonary on board. SIRS: With leukocytosis and tachycardia, he dose meet SIRS criteria. Procal mildly elevated at 0.15. Currently on Zosyn 3.375 g IV TID (D3). BCx ordered. Telemetry monitoring. Acute blood loss anemia: Expected result of surgery. Iron studies indicate Fe def anemia (Iron 11, % sat 3.01). Transfused 1 unit PRBC 05/12, 05/13. Transfused 2 unit PRBC 05/15. Continue ferrous sulfate 325 mg PO BID. Daily CBC. Transfuse if Hg < 7. h/o EtOH abuse: CIWA protocol. Ativan PRN for alcohol withdrawal per CIWA scale. Thrombocytopenia: Likely due to EtOH abuse. Monitor while patient is on Heparin SQ. Chronic conditions: PAD, tobacco abuse, COPD CODE STATUS: FULL CODE DVT Prophylaxis: Heparin SQ GI Prophylaxis: Protonix IV Designated medical POA if patient is not able to make medical decisions for themselves: I have reviewed the following workforce consultant notes: Orthopedic surgery, Pulmonary note. I have reviewed the results of the following tests: CBC, Echo. I have ordered the following tests: Agree with daily CBC. I have discussed the care of this patient with the following independent historian: I have independently interpreted the following test below: I have discussed the management of this patient with the following physician: Objective - Vital Signs Vital signs: Vital Signs Temp 98.7 F 05/16/23 08:00 Pulse 90 05/16/23 11:26 Resp 17 05/16/23 10:25 BP 97/64 05/16/23 08:00 Pulse Ox 96 05/16/23 08:00 FiO2 Intake & Output 05/15/23 05/16/23 05/16/23 18:59 06:59 18:59 Intake Total 580 620 Output Total 250 200 Balance 330 420 Intake: Oral 580 Blood Product 0 620 Rc As-1 Unit 310 [id number] Rc As-1 Unit 0 310 [id number] Output: Urine 250 200 Other: Voiding Method Toilet Toilet Toilet Urinal Urinal Urinal # Voids 1 3 # Bowel Movements 1 ABP, PAP, CO, CI - Last Documented Arterial Blood Pressure 206/206 - Labs CBC & Chem 7: 05/16/23 05:29 05/15/23 07:33 Labs: Abnormal Lab Results - Last 24 Hours (Table) 05/15/23 05/16/23 Range/Units 10:26 05:29 RBC 3.66 L (4.30-5.90) m/uL Hgb 9.2 L D (13.0-17.5) gm/dL Hct 29.5 L (39.0-53.0) % RDW 22.0 H (11.5-15.5) % Plt Count 131 L (150-450) k/uL Crossmatch See Detail
[2023-05-16 15:53] LABS: Anisocytosis Moderate; HCT 27.4 % (39.0-53.0); HGB 8.6 gm/dL (13.0-17.5); Hypochromasia Marked; MCH 25.1 pg (25.0-35.0); MCHC 31.4 g/dL (31.0-37.0); MCV 79.9 fL (80.0-100.0); Mean Platelet Volume 8.9; Microcytosis Moderate; Platelet Count 132 k/uL (150-450); Poikilocytosis Moderate; RBC 3.42 m/uL (4.30-5.90); RDW 22.3 % (11.5-15.5); WBC 9.2 k/uL (3.8-10.6)
[2023-05-17 07:36] LABS: Anisocytosis Moderate; Basophils # (A) 0.1 k/uL (0-0.2); Basophils % (A) 1 %; Eosinophils # (A) 0.4 k/uL (0-0.7); Eosinophils % (A) 4 %; HCT 27.5 % (39.0-53.0); HGB 8.7 gm/dL (13.0-17.5); Hypochromasia Marked; Lymphocytes # (A) 1.1 k/uL (1.0-4.8); Lymphocytes % (A) 12 %; MCH 25.5 pg (25.0-35.0); MCHC 31.7 g/dL (31.0-37.0); MCV 80.5 fL (80.0-100.0); Mean Platelet Volume 9.2; Microcytosis Moderate; Monocytes # (A) 0.7 k/uL (0-1.0); Monocytes % (A) 8 %; Neutrophils # (A) 6.8 k/uL (1.3-7.7); Neutrophils % (A) 73 %; Platelet Count 143 k/uL (150-450); Poikilocytosis Moderate; RBC 3.42 m/uL (4.30-5.90); RDW 22.2 % (11.5-15.5); WBC 9.3 k/uL (3.8-10.6)
[2023-05-17 07:45] LABS: African American GFR (CKD) >90 (>60 ml/min/1.73 sqM); Anion Gap 4 mmol/L; Blood Urea Nitrogen 9 mg/dL (9-20); Calcium 7.8 mg/dL (8.4-10.2); Carbon Dioxide 23 mmol/L (22-30); Chloride 108 mmol/L (98-107); Glucose 102 mg/dL (74-99); Non-African American GFR(CKD) >90 (>60 ml/min/1.73 sqM); Potassium 3.8 mmol/L (3.5-5.1); Sodium 135 mmol/L (137-145)
--- NOTE | 2023-05-17 10:04 | P.PN ---
Subjective Progress Note Date: 05/17/23 Principal diagnosis: Severe lumbar spondylosis with stenosis Bilateral lower extremity radiculopathy Patient seen and examined this morning. Patient is sitting up in chair. He co ntinues to report mid-low back pain, controlled on current regimen. IV Dilaudid has been discontinued. Discussed with patient that he is not able to be discharged on this medication. Patient verbalizes understanding. Hgb is stable at 8.7 and BP is 112/74 HR 98. Surgical incision to thoracolumbar spine, dressing is CDI. Continue to encourage patient to be up in chair for all meals and to be ambulating as tolerated. Patient reports use of incentive spirometer while awake. Patient is urinating without any difficulty. He reports he had a BM yesterday. Patient is cleared from an Orthopedic standpoint for discharge when medically stable. Objective - Vital Signs Vital signs: Vital Signs Temp 98.7 F 05/17/23 08:00 Pulse 98 05/17/23 09:48 Resp 18 05/17/23 08:00 BP 112/74 05/17/23 08:00 Pulse Ox 91 L 05/17/23 08:00 FiO2 Intake & Output 05/16/23 05/17/23 05/17/23 18:59 06:59 18:59 Intake Total 560 Output Total 400 600 Balance -400 -40 Intake: Oral 560 Output: Urine 400 600 Other: Voiding Method Toilet Toilet Urinal Urinal # Bowel Movements 1 ABP, PAP, CO, CI - Last Documented Arterial Blood Pressure 206/206 - Exam Physical Examination General: The patient is awake and alert, in no acute distress Skin: Skin is warm and dry with no obvious rashes or lesions. Surgical in cision to the thoracolumbar spine, dressing CDI. Eye: Pupils are equal, round and reactive to light, extra-ocular movements are intact; there is normal conjunctiva bilaterally. Neck: The neck is supple, there is no tenderness and ROM intact. Cardiovascular: There is a regular rate and rhythm. No murmur, rub or gallop is appreciated. Respiratory: Respirations are non-labored, breath sounds are equal. Gastrointestinal: Soft, non-distended, non-tender abdomen. Back: There is moderate tenderness to palpation in the paralumbar region, due to surgery. There is no obvious deformity . Musculoskeletal: ROM limited secondary to pain and stiffness from surgical procedure. Muscle strength in all major muscle groups of bilateral upper extremities 5/5, bilateral lower extremities 4/5. Neurological: CN 2-12 intact. There are no obvious motor or sensory deficits. Movement and coordination equal and intact. Sensory exam to light touch intact C5-T1 and intact from L2-S1. Reflexes 2/4 in bilateral upper and lower extremities. Negative Hoffmans, babinski, and clonus signs. Psychiatric: Cooperative, appropriate mood & affect, normal judgment. - Labs CBC & Chem 7: 05/17/23 07:06 05/17/23 07:06 Labs: Abnormal Lab Results - Last 24 Hours (Table) 05/16/23 05/17/23 05/17/23 Range/Units 15:18 07:06 07:06 RBC 3.42 L 3.42 L (4.30-5.90) m/uL Hgb 8.6 L 8.7 L (13.0-17.5) gm/dL Hct 27.4 L 27.5 L (39.0-53.0) % MCV 79.9 L (80.0-100.0) fL RDW 22.3 H 22.2 H (11.5-15.5) % Plt Count 132 L 143 L (150-450) k/uL Sodium 135 L (137-145) mmol/L Chloride 108 H (98-107) mmol/L Glucose 102 H (74-99) mg/dL Calcium 7.8 L (8.4-10.2) mg/dL Microbiology - Last 24 Hours (Table) 05/15/23 10:26 Blood Culture - Preliminary Blood Assessment and Plan Assessment: Postop day 6: [id number] decompression and fusion Severe lumbar spondylosis with stenosis Bilateral lower extremity radiculopathy Post-Op anemia: expected outcome Plan: -Appreciate emergency management consultant and team management. -Activity: Ambulate QID, OOB all meals, up and about, limit lifting bending twisting to less than 5 lbs. Use walker or cane if needed for stability. -Daily PT/OT, increase ambulation strength and balance. -Brace when up and about, not needed in bed or chair -Pain control: Adequate at this time -Meds: reviewed -GI ppx: senna, Dulcolax suppository, Miralax -DVT PPX: Heparin -Hygiene: Shower today. Maintain dressing clean and dry. Meticulous cleaning after BMs away from the incision site -Encourage IS 10x/hr -Dispo: Patient is cleared from an orthopedic standpoint for discharge when medically stable. *I reviewed and discussed this case with my attending Dr. Yao, whom has reviewed this chart and films and is in agreement with assessment and plan of care as outlined above. I have personally seen and examined the patient, performed the documentation and the assessment and plan as written. Number of minutes spent on the visit: 20m.
--- NOTE | 2023-05-17 11:08 | P.PN ---
Subjective Progress Note Date: 05/17/23 This is a 67-year-old white male with history of thoracic lumbar and lumbosacral intervertebral disc disease, thoracolumbar radiculopathy thoracolumbar kyphosis and back pain. Patient also had lumbar spondylosis, lumbar sacral spondylosis and atrophy of muscles of both lower extremities. He also had sacroiliac joint dysfunction. Yesterday, patient underwent [id number] decompression and fusion postoperatively, patient had to be admitted to the intensive care unit, and I was asked to see him on consultation. No major issues overnight, patient was extubated shortly after his surgery, and he tolerated extubation well. This morning the patient was seen in the ICU, has mostly some moderate back pain with radiation across the lower back, hemoglobin was noted to be low at 6.5, and he is receiving a unit of packed RBCs already. Apparently the patient had previous evaluation by Dr. Yeh in the office, and he cleared him for surgery as his PFT was unremarkable. Patient has a longstanding smoking history. And he continues to smoke until recently. But he has no cough no wheezing, no shortness of breath, no chest pain. WBC count this morning is 10.7 hemoglobin 6.5.Basic metabolic profile and renal profile is normal. Chest x-ray last night showed minimal basilar atelectasis, no evidence of congestive heart failure and no evidence of pneumonia, there is however slight prominence of the pulmonary vasculature The patient is seen today May 13, 2023 in follow-up on the regular medical floor. He is awake and alert no acute distress. Sitting up in a chair at the bedside. Maintaining good O2 saturations in the 90s on room air. Postoperative CT scan of the lumbar spine revealed no evidence of complication. Hardware appears intact. He is status post 3 units packed red blood cells this admission. Current hemoglobin 7.5. An additional unit ordered per orthopedic surgery. White count 17.5. Platelets 146. Sodium 138. Potassium 4.1. Bicarb 24. BUN 11. Creatinine 0.80. Glucose 108. He remains on Symbicort and DuoNeb ventilations. Pain is adequately controlled. NicoDerm patch in place. The patient is seen today May 14, 2023 in follow-up on the regular medical floor. He is sitting up in a chair at the bedside. Awake and alert in no acute distress. Good O2 saturations in the 90s on 2 L/min per nasal cannula. He is status post 4 units of packed red blood cells this admission. Current hemoglobin 8.0. Platelets 115. White count 13.6. Sodium 136. Potassium 3.7. Bicarb 23. BUN 8. Creatinine 0.77. Glucose 107. Chest x-ray shows bibasilar airspace opacities possible pulmonary vascular congestion versus atelectasis. He remains on DuoNeb and elations, Symbicort. Heparin for DVT prophylaxis. Neck NicoDerm patch in place. Antibiotics in the form of cefazolin. The patient is seen today May 15, 2023 in follow-up on the regular medical floor. He is currently sitting up in bed having breakfast. Awake and alert in no acute distress. Maintaining good O2 saturations in the 90s on room air. Denies any worsening shortness of breath, cough or congestion. His pain is adequately controlled. He remains on antibiotics in the form of Zosyn. Continued on bronchodilators. NicoDerm patch in place. Heparin for DVT prophylaxis. Follow-up chest x-ray reveals no acute pulmonary process. White count 10.5. Hemoglobin 7.3. Platelets 110. Sodium 136. Potassium 3.5. Bicarb 23. BUN 10. Creatinine 0.78. Glucose 105. Procalcitonin 0.15. The patient is seen today May 16, 2023 in follow-up on the regular medical floor. He is awake and alert no acute distress. Sitting up in bed. Denies any worsening shortness of breath, cough or congestion. His pain is adequately controlled. He has been up working with physical therapy. He is maintaining good O2 saturations in the 90s on room air. He is status post 6 units of packed red blood cells this admission. Current hemoglobin 9.2. Platelets 131. White count 9.1. He remains on DuoNeb ventilations, Symbicort. Continued on antibiotics in the form of Zosyn. NicoDerm patch in place. Heparin for DVT prophylaxis. The patient is seen today May 17, 2023 in follow-up on the regular medical floor. He is sitting up in a chair. Awake and alert in no acute distress. He is maintaining good O2 saturations in the 90s on 4 L/min per nasal cannula. He has normal saying at 100 MLS per hour. Count 9.3. Hemoglobin 8.7. Platelets 143. Sodium 135. Potassium 3.8. Bicarb 23. BUN 9. Creatinine 0.77. Glucose 102. He remains on DuoNeb inhalations, Symbicort. Heparin for DVT prophylaxis. NicoDerm patch in place. He remains on antibiotics in the form of Zosyn. Objective - Vital Signs Vital signs: Vital Signs Temp 98.7 F 05/17/23 08:00 Pulse 94 05/17/23 10:03 Resp 18 05/17/23 08:00 BP 112/74 05/17/23 08:00 Pulse Ox 97 05/17/23 09:52 FiO2 Intake & Output 05/16/23 05/17/23 05/17/23 18:59 06:59 18:59 Intake Total 560 Output Total 400 600 Balance -400 -40 Intake: Oral 560 Output: Urine 400 600 Other: Voiding Method Toilet Toilet Toilet Urinal Urinal Urinal # Bowel Movements 1 ABP, PAP, CO, CI - Last Documented Arterial Blood Pressure 206/206 - Exam General: Agitated, swearing at staff, 67-year-old male patient, on 4 L nasal cannula, sitting up at the bedside, does not appear acutely ill. Skin: Skin is warm and dry and no rashes or lesions are noted. Eye: Pupils are equal, round and reactive to light, extra-ocular movements are intact; there is normal conjunctiva bilaterally. Ears, nose, mouth and throat: There are moist mucous membranes and no oral lesions. Neck: The neck is supple, there is no tenderness or JVD. Cardiovascular: There is a regular rate and rhythm. No murmur, rub or gallop is appreciated. Respiratory: Diminished breath sounds at the bases no rhonchi no wheezes Gastrointestinal: Soft, non-distended, non-tender abdomen without masses or or ganomegaly noted. There is no rebound or guarding present. Bowel sounds are unremarkable. Neurological: Alert and oriented x 3, no gross focal deficit Psychiatric: Normal mood, affect and normal mental status examination. Musculoskeletal: Surgical site clean dry well-approximated. Dressing dry and intact. - Labs CBC & Chem 7: 05/17/23 07:06 05/17/23 07:06 Labs: Abnormal Lab Results - Last 24 Hours (Table) 05/16/23 05/17/23 05/17/23 Range/Units 15:18 07:06 07:06 RBC 3.42 L 3.42 L (4.30-5.90) m/uL Hgb 8.6 L 8.7 L (13.0-17.5) gm/dL Hct 27.4 L 27.5 L (39.0-53.0) % MCV 79.9 L (80.0-100.0) fL RDW 22.3 H 22.2 H (11.5-15.5) % Plt Count 132 L 143 L (150-450) k/uL Sodium 135 L (137-145) mmol/L Chloride 108 H (98-107) mmol/L Glucose 102 H (74-99) mg/dL Calcium 7.8 L (8.4-10.2) mg/dL Microbiology - Last 24 Hours (Table) 05/15/23 10:26 Blood Culture - Preliminary Blood Assessment and Plan Assessment: Postop day 6: [id number] decompression and fusion Postoperative anemia requiring 6 units of packed red blood cells, current hemoglobin 8.7 Acute hypoxic respiratory failure possibly related to early pneumonia of the right lower lobe Severe lumbar spondylosis with stenosis Bilateral lower extremity radiculopathy History of alcohol abuse, patient is on the CIWA protocol History of thrombocytopenia related to alcohol abuse History of COPD History of chronic and ongoing tobacco dependence History of peripheral vessel occlusive disease Plan: The patient was seen and evaluated He is agitated and swearing at staff today Labs and medications reviewed Remains on antibiotics and bronchodilators NicoDerm patch remains in place Encourage increased use of the incentive spirometer Increase his activity as tolerated Plan is for subacute rehab at discharge This patient was seen independently by the pulmonary nurse practitioner addressing pulmonary issues I have personally seen and examined the patient, performed the documentation and the assessment and plan as written. Number of minutes spent on the visit: 23.
--- NOTE | 2023-05-17 11:21 | P.PN ---
Subjective Progress Note Date: 05/17/23 Patient is a 67-year-old male with peripheral arterial disease status post left common iliac artery stenting, tobacco abuse, and COPD who was admitted for elective T10 to pelvis decompression and fusion due to severe lumbar spondylosis with stenosis. Patient had an estimated 1 L of blood loss and was given 2 units of packed red blood cells postoperatively. On 05/12 there was some concern for p ossible alcohol withdrawal the patient was started on CIWA protocol. He was also found to have a hemoglobin of 6.5 and 1 unit of packed red blood cells was ordered, repeat hemoglobin was 7 the next day and he was given 1 additional unit of packed red blood cells. Chest x-ray was obtained on 05/14 showing basilar opacities and the patient was subsequently started on IV Lasix and Zosyn with concerns for pneumonia. Patient had continued anemia and was given 2 more units of packed red blood cells on 05/15. He underwent echocardiogram due to his hypoxia which showed ejection fraction of 60 to 65% but demonstrated moderate pulmonary hypertension with RVSP of 46. Patient seen and examined at bedside. He is feeling well currently. His breathing is about his baseline and where it has been for the last 7 years. Pain is well-controlled. He would prefer to go home instead of to rehab. He is worried about his swelling. He has no other complaints currently. Vital signs reviewed General: Nontoxic, no distress, appears at stated age Cardiovascular: S1S2 reg, no murmur Lungs: Decreased bs bilateral, no rhonchi, no rales, no accessory muscle use Abdominal: Soft, nontender to palpation, no guarding Ext: No gross muscle atrophy, no edema b/l lower extremities, no contractures Neuro: CN II-XI grossly intact, no focal neuro deficits Psych: Alert, oriented, appropriate affect Assessment/Plan: Severe lumbar spondylosis with stenosis status post T10 to pelvis decompression fusion -Orthopedic surgery note reviewed: Continue current plan of care and brace when up and about. -Percocet 10/325 every 4 hours as needed for pain b/l LE edema - due to flud overload from blood and IVF - Stop IVF - Lasix 40 mg IV q12 hours Acute blood loss anemia, anticipated outcome of surgery Thrombocytopenia, Reactive -Status post 6 units of packed red blood cells. appropriate affect oriented Alert no focal neuro deficits CN II-XI grossly intact no contractures no edema b/l lower extremities No gross muscle atrophy no guarding nontender to palpation Soft no accessory muscle use no rhonchi, no rales CTA bilateral no murmur S1S2 reg appears at stated age no distress Nontoxic -Ferrous sulfate 325 mg oral twice daily -No indication for further transfusion today -Follow CBC Acute hypoxic respiratory failure, possible related to early pneumonia in the right lower lobe, improved Moderate pulmonary hypertension Tobacco dependency -Pulmonary note reviewed from 05/16: Remains on antibiotics and bronchodilators. -Patient continued to spike fevers through 05/16 with a Tmax of 100.1 -Will continue Zosyn 3.375 g IV every 8 hours day #4 -Repeat chest x-ray in a.m. -Nicotine 21 mcg patch daily -DuoNebs 4 times daily and every 2 hours as needed -Symbicort 2 puffs twice daily - Asked nurse for home O2 evaluation History of alcohol dependency -Patient is on CIWA protocol with Ativan dosing per CIWA score. He has not required any Ativan since 05/13. -Thiamine 100 mg oral twice daily -Folic acid 1 mg twice daily Imaging: None new Data Review: Labs reviewed from today include CBC and basic metabolic profile which are remarkable for hemoglobin 8.7, platelets 143, sodium 135 DVT prophylaxis: Heparin Anticipated discharge date: Once SNF bed available Anticipated discharge place:Once SNF bed available This dictation was prepared using [employer] voice recognition software. Though every attempt is made to correct errors during dictation some may still exist. Objective - Vital Signs Vital signs: Vital Signs Temp 98.7 F 05/17/23 08:00 Pulse 94 05/17/23 10:03 Resp 18 05/17/23 08:00 BP 112/74 05/17/23 08:00 Pulse Ox 97 05/17/23 09:52 FiO2 Intake & Output 05/16/23 05/17/23 05/17/23 18:59 06:59 18:59 Intake Total 560 Output Total 400 600 Balance -400 -40 Intake: Oral 560 Output: Urine 400 600 Other: Voiding Method Toilet Toilet Toilet Urinal Urinal Urinal # Bowel Movements 1 ABP, PAP, CO, CI - Last Documented Arterial Blood Pressure 206/206 - Labs CBC & Chem 7: 05/17/23 07:06 05/17/23 07:06 Labs: Abnormal Lab Results - Last 24 Hours (Table) 05/16/23 05/17/23 05/17/23 Range/Units 15:18 07:06 07:06 RBC 3.42 L 3.42 L (4.30-5.90) m/uL Hgb 8.6 L 8.7 L (13.0-17.5) gm/dL Hct 27.4 L 27.5 L (39.0-53.0) % MCV 79.9 L (80.0-100.0) fL RDW 22.3 H 22.2 H (11.5-15.5) % Plt Count 132 L 143 L (150-450) k/uL Sodium 135 L (137-145) mmol/L Chloride 108 H (98-107) mmol/L Glucose 102 H (74-99) mg/dL Calcium 7.8 L (8.4-10.2) mg/dL Microbiology - Last 24 Hours (Table) 05/15/23 10:26 Blood Culture - Preliminary Blood
[2023-05-17] MEDS: FUROSEMIDE 10 MG/ML 4 ML VIAL IV SCH (11:25)
--- NOTE | 2023-05-17 12:33 | XR ---
EXAMINATION TYPE: XR chest 2V DATE OF EXAM: 05/17/2023 COMPARISON: 05/15/2023 TECHNIQUE: PA and lateral views submitted. HISTORY: Follow-up pneumonia FINDINGS: A patchy peripheral right mid lung area consolidation. No pneumothorax. No sizable pleural effusion. Heart size normal and no overt failure. Osseous structures demonstrate hypertrophic and degenerative changes of the spine. Coarsened interstitium. Postsurgical change of the vertebral canal. Chronic de formity of the rib cage. Underlying COPD. Delete that IMPRESSION: 1. Patchy peripheral right midlung atelectasis or resolving infiltrate. 2. COPD with findings suggestive of pulmonary fibrosis
[2023-05-17 12:36] VITALS: BP 151/78; RESP 20; TEMP 98.2
--- NOTE | 2023-05-17 14:48 | P.DS ---
Providers Date of admission: 05/11/23 07:23 Expected date of discharge: 05/17/23 Attending physician: Mika Oreilly MD Consults: 05/11/23 17:07 Consult Physician Routine Consulting Provider: Manasa Rodriguez Consult Reason/Comments: ICU management Do you want consulting provider notified?: Yes Consult Physician Routine Consulting Provider: Fabiano Rodriguez Consult Reason/Comments: Medical Management Do you want consulting provider notified?: Already Contacted Primary care physician: Matt Medina Hospital Course: Patient is a 67-year-old male with a PMH of peripheral arterial disease status post left common iliac artery stenting, tobacco abuse, and COPD who was admitted for an elective lumbosacral osteotomy for deformity correction. The patient underwent the procedure on 05/11. The patient reportedly had 1 L of estimated blood loss and was given 2 units of PRBCs postoperatively. 05/12 Started on CIWA protocol and Ativan PRN for history of EtOH abuse and conc erns for withdrawal. Hg 6.5. Given 1 unit PRBC. 05/13 Noted to be hypotensive and hypoxic requiring supplemental O2 and IV fluids. Hg 7. Given 1 unit PRBC. 05/14 CXR showed bibasilar opacities. Given one dose of Lasix 40 mg IV. Given leukocytosis, he met sepsis criteria and was started on Zosyn by pulmonology for concerns of aspiration PNA. 05/15 Maintained on Zosyn (D2). Procal 0.15. Hg 7.3. Given 2 units PRBC. 05/16 Maintained on Zosyn (D3). Echo was done which shows EF 60-65%, mild TR and moderate pulmonary hypertension. He would like to avoid SNF as much as possible. Patient was seen by my colleague Dr. Bustillo on 05/17. He was started on Lasix 40 mg IV BID for lower extremity swelling. He has been cleared by Orthopedic surgery for discharge. Plans for discharge to [facility] today. In addition to continuing his home medications he will be prescribed the following medications: Augmentin 875-125 mg PO BID x 4 days to complete a total of 7 days antibiotics for pneumonia. Lasix 40 mg PO BID x 7 days for lower extremity swelling. Percocet and Flexeril PRN for pain along with stool softeners. DuoNeb PRN for SOB/wheezing. Follow up with PCP within 1-2 days of discharge. Follow up with Dr. Yao within 1 week of discharge. Follow up with Dr. Rodriguez within 1 week of discharge. General: non toxic, no distress, appears at stated age Derm: warm, dry Head: atraumatic, normocephalic, symmetric Eyes: EOMI, no lid lag, anicteric sclera Mouth: no lip lesion, mucus membranes moist Cardiovascular: S1S2 tachycardic, no murmur Lungs: CTA bilateral, no rhonchi, no rales , no accessory muscle use Ext: no gross muscle atrophy, 1+ bilateral lower extremity edema Neuro: no focal neuro deficits Psych: Alert, oriented, appropriate affect Discharge Diagnosis: Severe lumbar spondylosis with stenosis status post T10 to pelvis decompression fusion Bilateral LE edema Acute blood loss anemia, anticipated outcome of surgery Thrombocytopenia, Reactive Acute hypoxic respiratory failure, possible related to early pneumonia in the right lower lobe, improved Moderate pulmonary hypertension Tobacco dependency History of alcohol dependency This complex discharge took 35 minutes to complete. Patient Condition at Discharge: Stable Plan - Discharge Summary Discharge Rx Participant: Yes New Discharge Prescriptions: New Docusate [Colace] 100 mg PO BID PRN cap PRN Reason: Constipation Cyclobenzaprine [Flexeril] 5 mg PO TID PRN tab PRN Reason: Muscle Spasm Nicotine 21Mg/24Hr Patch [Habitrol] 1 patch TRANSDERM DAILY patch Mag Hydrox/Al Hydrox/Simeth [Maalox] 30 ml PO Q4HR PRN ml PRN Reason: Indigestion oxyCODONE-APAP 10-325MG [Percocet 10-325 mg] 1 each PO Q4HR PRN #18 tab PRN Reason: Pain 6-10 Amoxic-Pot Clav 875-125Mg [Augmentin 875-125] 1 tab PO Q12HR 4 Days #8 tab Ipratropium-Albuterol Nebulize [Duoneb 0.5 mg-3 mg/3 ml Soln] 3 ml INHALATION RT-Q2H PRN each PRN Reason: Shortness Of Breath Or Wheezing Ferrous Sulfate [Iron (65 MG Elemental)] 325 mg PO BID-W/MEALS tab Furosemide [Lasix] 40 mg PO BID 7 Days #14 tablet polyethylene glycoL 3350 [Miralax] 17 gm PO DAILY PRN packet PRN Reason: Constipation Sennosides-Docusate Sodium [Senokot-S] 2 each PO DAILY PRN tab PRN Reason: Constipation Continue Thiamine [Vitamin B-1] 100 mg PO BID QUEtiapine FUMARATE [QUEtiapine FUMARATE ER] 100 mg PO BID Omeprazole [PriLOSEC] 20 mg PO DAILY Aspirin EC [Ecotrin Low Dose] 81 mg PO DAILY 90 Days #90 tab Gabapentin 300 mg PO TID #9 cap Budesonide/Formoterol Fumarate [Symbicort 160-4.5 Mcg Inhaler] 2 puff INHALATION BID PRN PRN Reason: Shortness Of Breath Albuterol Inhaler [Ventolin Hfa Inhaler] 2 puff INHALATION Q4HR PRN PRN Reason: Shortness Of Breath Discontinued Acetaminophen/Diphenhydramine [Tylenol PM 500-25mg] 1 tab PO HS Sucralfate [Sucralfate Oral Susp] 10 ml PO DIRECTED Discharge Medication List Omeprazole [PriLOSEC] 20 mg PO DAILY 01/13/22 [History] QUEtiapine FUMARATE [QUEtiapine FUMARATE ER] 100 mg PO BID 01/13/22 [History] Thiamine [Vitamin B-1] 100 mg PO BID 01/13/22 [History] Aspirin EC [Ecotrin Low Dose] 81 mg PO DAILY 90 Days #90 tab 01/15/22 [Rx] Albuterol Inhaler [Ventolin Hfa Inhaler] 2 puff INHALATION Q4HR PRN 01/24/23 [History] Budesonide/Formoterol Fumarate [Symbicort 160-4.5 Mcg Inhaler] 2 puff INHALATION BID PRN 01/24/23 [History] Amoxic-Pot Clav 875-125Mg [Augmentin 875-125] 1 tab PO Q12HR 4 Days #8 tab 05/17/23 [Rx] Cyclobenzaprine [Flexeril] 5 mg PO TID PRN tab 05/17/23 [Rx] Docusate [Colace] 100 mg PO BID PRN cap 05/17/23 [Rx] Ferrous Sulfate [Iron (65 MG Elemental)] 325 mg PO BID-W/MEALS tab 05/17/23 [Rx] Furosemide [Lasix] 40 mg PO BID 7 Days #14 tablet 05/17/23 [Rx] Gabapentin 300 mg PO TID #9 cap 05/17/23 [Rx] Ipratropium-Albuterol Nebulize [Duoneb 0.5 mg-3 mg/3 ml Soln] 3 ml INHALATION RT-Q2H PRN each 05/17/23 [Rx] Mag Hydrox/Al Hydrox/Simeth [Maalox] 30 ml PO Q4HR PRN ml 05/17/23 [Rx] Nicotine 21Mg/24Hr Patch [Habitrol] 1 patch TRANSDERM DAILY patch 05/17/23 [Rx] Sennosides-Docusate Sodium [Senokot-S] 2 each PO DAILY PRN tab 05/17/23 [Rx] oxyCODONE-APAP 10-325MG [Percocet 10-325 mg] 1 each PO Q4HR PRN #18 tab 05/17/23 [Rx] polyethylene glycoL 3350 [Miralax] 17 gm PO DAILY PRN packet 05/17/23 [Rx] Follow up Appointment(s)/Referral(s): Maansa Rodriguez MD [STAFF PHYSICIAN] - 1 Week Nonstaff,Physician [REFERRING] - 1-2 Days Jluis Yao DO [Doctor of Osteopathic Medicine] - 1 Week Activity/Diet/Wound Care/Special Instructions: Diet: Cardiac Low salt Follow up with PCP within 1-2 days of discharge. Follow up with Orthopedic surgery Dr. Yao within 1 week of discharge. Follow up with Pulmonology Dr. Rodriguez within 1 week of discharge. Discharge Disposition: TRANSFER TO SNF/ECF
[2023-05-17 16:12] VITALS: PULSE 121
--- NOTE | 2023-05-19 16:10 | CDI ---
Documentation Clarification Form Date: 05/19/2023 03:04:24 PM From: Kate French RN, CCDS Phone: [phone] Admit Date: 05/11/2023 07:23:00 AM Patient Name: Lenny Hester Visit Number: [id number] Discharge Date: 05/17/2023 05:04:00 PM ATTENTION: The Clinical Documentation Specialists (CDI) and [facility] Coding Staff appreciate your assistance in clarifying documentation. Please respond to the clarification below the line at the bottom and electronically sign. The CDI & [facility] Coding staff will review the response and follow-up if needed. Please note: Queries are made part of the Legal Health Record. If you have any questions, please contact the author of this message via ITS. Dr. Jluis Yao Hypotension is documented in the Ortho progress note on 05/12/23 and subsequent progress notes and patient had a [id number] decompression and fusion on 05/11/23. Additional clarification is requested regarding the relationship, if any, that exists between the diagnosis and the procedure. 05/12 Ortho progress note: Patient has not been up since procedure, due to hypotension, postop anemia, and pain. 05/12 (06:00) VS 83/60 98 15 97.9 95% RA, HGB 6.5 HCT 21.8 05/13 (12l37) 88.54 105 20 90% 2/l NC Patients Admitting Diagnosis: Thoracic, thoracolumbar and lumbosacral intervertebral disc disorder (Acute) Lumbar stenosis with neurogenic claudication (Acute) Atrophy of muscle of both lower legs (Acute) Post-Operative Diagnosis: Same Procedure performed: Osteotomy of spine, posterior or posterior lateral approach, [id number] decompression and fusion. History/Risk Factors: Lumbar stenosis with neurogenic claudication (Acute), Thoracic, thoracolumbar and lumbosacral intervertebral disc disorder Clinical Indicators: 67-year-old male present with low back and bilateral lower extremity pain, bilateral lower extremity numbness, tingling, and weakness. CT evidence of L1-S1 spondylosis severe, present for elective procedure. 05/11 Operate report: Estimated blood loss 1,000 Treatment: ICU/Telemetry monitoring Transfuse PRBC per orders 05/11, 05/12 05/13, 05/15 (T=6 Units) Monitor Hemoglobin transfuse per orders Encourage IS 10X HR Daily PT/OT Brace when up What relationship, if any, exists between the diagnosis of hypotension and the procedure? [ ] Hypotension is a complication of surgical procedure [ ] Hypotension is an expected outcome of the surgical procedure [ ] Hypotension is related to patients co-morbid condition(s) of expected acute blood loss anemia & not a complication of the procedure. [ ] Hypotension is related to (please specify cause) [ ] Other please specify ____ [ ] Unable to determine (Template Last Revised: May 2020) Hypotension is related to patients co-morbid condition(s) of expected acute blood loss anemia & not a complication of the procedure. On top of this, it is related to the delayed nature with which the floor dealt with his anemia. For instance, blood was ordered at 10 am on POD6 and was not given to pt until 8pm despite him having tachycardia, hypotension and labs to support this. The reasoning of which given by the regional service manager and nurse on the floor being that they have other patients that needed meds hung. This is also related to poor medical management as blood was cancelled several times without primary team notification by medical management, which is also unacceptable. All of these lead to a delay in patient care and discharge. JASON
== END 2023-05-17 17:04 | DRG 453 ==
LOC: 2ORMAIN 07:23 → 2SICU 14:53 → 5NMEDONC 05-13 00:01
PROVIDERS: ADMIT Student in an Organized Health Care Education/Training Program; ATTEND Student in an Organized Health Care Education/Training Program
PROC: 30243N1 Transfusion of Nonautologous Red Blood Cells into Central Vein, Percutaneous Approach (ICD-10-PCS; 2023-05-11)
PROC: 01NB0ZZ Release Lumbar Nerve, Open Approach (ICD-10-PCS; principal; 2023-05-11 09:15)
PROC: 0SG30AJ Fusion of Lumbosacral Joint with Interbody Fusion Device, Posterior Approach, Anterior Column, Open Approach (ICD-10-PCS; principal; 2023-05-11 09:15)
PROC: 4A11X4G Monitoring of Peripheral Nervous Electrical Activity, Intraoperative, External Approach (ICD-10-PCS; principal; 2023-05-11 09:15)
PROC: 00NY0ZZ Release Lumbar Spinal Cord, Open Approach (ICD-10-PCS; principal; 2023-05-11 09:15)
PROC: 0RG7071 Fusion of 2 to 7 Thoracic Vertebral Joints with Autologous Tissue Substitute, Posterior Approach, Posterior Column, Open Approach (ICD-10-PCS; principal; 2023-05-11 09:15)
PROC: 01NR0ZZ Release Sacral Nerve, Open Approach (ICD-10-PCS; principal; 2023-05-11 09:15)
PROC: 0QH304Z Insertion of Internal Fixation Device into Left Pelvic Bone, Open Approach (ICD-10-PCS; principal; 2023-05-11 09:15)
PROC: 0RGA0AJ Fusion of Thoracolumbar Vertebral Joint with Interbody Fusion Device, Posterior Approach, Anterior Column, Open Approach (ICD-10-PCS; principal; 2023-05-11 09:15)
PROC: 0RG70AJ Fusion of 2 to 7 Thoracic Vertebral Joints with Interbody Fusion Device, Posterior Approach, Anterior Column, Open Approach (ICD-10-PCS; principal; 2023-05-11 09:15)
PROC: 0SG1071 Fusion of 2 or more Lumbar Vertebral Joints with Autologous Tissue Substitute, Posterior Approach, Posterior Column, Open Approach (ICD-10-PCS; principal; 2023-05-11 09:15)
PROC: 0ST40ZZ Resection of Lumbosacral Disc, Open Approach (ICD-10-PCS; principal; 2023-05-11 09:15)
PROC: 0QH204Z Insertion of Internal Fixation Device into Right Pelvic Bone, Open Approach (ICD-10-PCS; principal; 2023-05-11 09:15)
PROC: 0SG3071 Fusion of Lumbosacral Joint with Autologous Tissue Substitute, Posterior Approach, Posterior Column, Open Approach (ICD-10-PCS; principal; 2023-05-11 09:15)
PROC: 0SG00AJ Fusion of Lumbar Vertebral Joint with Interbody Fusion Device, Posterior Approach, Anterior Column, Open Approach (ICD-10-PCS; principal; 2023-05-11 09:15)
PROC: 0RGA071 Fusion of Thoracolumbar Vertebral Joint with Autologous Tissue Substitute, Posterior Approach, Posterior Column, Open Approach (ICD-10-PCS; principal; 2023-05-11 09:15)
DX: M47.26 Other spondylosis with radiculopathy, lumbar region (principal); J18.9 Pneumonia, unspecified organism; J96.01 Acute respiratory failure with hypoxia; D62 Acute posthemorrhagic anemia; F10.239 Alcohol dependence with withdrawal, unspecified; R65.10 Systemic inflammatory response syndrome (SIRS) of non-infectious origin without acute organ dysfunction; M48.56XA Collapsed vertebra, not elsewhere classified, lumbar region, initial encounter for fracture; I27.20 Pulmonary hypertension, unspecified; D69.59 Other secondary thrombocytopenia; I95.89 Other hypotension; J44.9 Chronic obstructive pulmonary disease, unspecified; I73.9 Peripheral vascular disease, unspecified; Z95.820 Peripheral vascular angioplasty status with implants and grafts; M48.062 Spinal stenosis, lumbar region with neurogenic claudication; M47.817 Spondylosis without myelopathy or radiculopathy, lumbosacral region; M40.205 Unspecified kyphosis, thoracolumbar region; M51.9 Unspecified thoracic, thoracolumbar and lumbosacral intervertebral disc disorder; M43.16 Spondylolisthesis, lumbar region; M62.562 Muscle wasting and atrophy, not elsewhere classified, left lower leg; M62.561 Muscle wasting and atrophy, not elsewhere classified, right lower leg; F41.9 Anxiety disorder, unspecified; K21.9 Gastro-esophageal reflux disease without esophagitis; N40.0 Benign prostatic hyperplasia without lower urinary tract symptoms; E78.5 Hyperlipidemia, unspecified; D72.829 Elevated white blood cell count, unspecified; I25.10 Atherosclerotic heart disease of native coronary artery without angina pectoris; M19.90 Unspecified osteoarthritis, unspecified site; F17.210 Nicotine dependence, cigarettes, uncomplicated; Z71.6 Tobacco abuse counseling; Z86.14 Personal history of Methicillin resistant Staphylococcus aureus infection; Z79.82 Long term (current) use of aspirin; Z79.51 Long term (current) use of inhaled steroids; Z79.899 Other long term (current) drug therapy
CPT/HCPCS: 71045; 71046; 72100; 72128; 72131; 80048; 82728; 82805; 83540; 83550; 84145; 85025; 85027; 85610; 85730; 86850; 86891; 86900; 86901; 86920; 87040; 93005; 93306; 94640

== ENCOUNTER 2023-05-26 11:04 | Inpatient (IN) | payer MEDICARE, OTHER ==
--- NOTE | 2023-05-26 11:14 | P.PN ---
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 He is in intense pain and is currently in rehab. He is two weeks out from T10-P decompression and fusion. He was sent immediately to the ED for admission and revision of hardware tomorrow 05/27/23. He can be admitted to spine service. Please consult medicine for clearance. Keep NPO at PR and obtain a CT scan of the Thoracolumbar region. We will plan on surgery tomorrow to revise his hardware.
--- NOTE | 2023-05-26 11:21 | ED ---
Back Pain HPI - General Source: patient, RN notes reviewed, old records reviewed <Susan Garcia - Last Filed: 05/26/23 11:20> - General Source: patient, RN notes reviewed, old records reviewed Mode of arrival: ambulatory Limitations: no limitations <Kalen Florez - Last Filed: 06/02/23 06:05> - General Stated Complaint: Back pain Time Seen by Provider: 05/26/23 11:20 - History of Present Illness Initial Comments: Quick note: Patient is a 67-year-old male presented to ER with chief complaint back pain. Patient sent by Dr. Yao valuation of broken lumbar screws. Patient underwent surgery 2 weeks ago. Denies any bowel or bladder incontinence, saddle paresthesias, fevers, history of IV drug use. (Susan Garcia) 67-year-old male presents emergency department complaint of back pain. Patient was sent over by his orthopedic surgeon Dr. Cohn's and after evaluation today. Patient has hardware failure. Patient states he had surgery 2 weeks ago for this. He states he has increasing pain. He is also scheduled for further surgery. Patient denies any bowel, bladder incontinence retention no saddle anesthesias. (Kalen Floerz) - Related Data Home Medications Medication Instructions Recorded Confirmed Omeprazole [PriLOSEC] 20 mg PO DAILY 01/13/22 05/26/23 QUEtiapine FUMARATE [QUEtiapine 100 mg PO BID 01/13/22 05/26/23 FUMARATE ER] Thiamine [Vitamin B-1] 100 mg PO BID 01/13/22 05/26/23 Albuterol Inhaler [Ventolin Hfa 2 puff INHALATION RT-Q4H PRN 01/24/23 05/26/23 Inhaler] Budesonide/Formoterol Fumarate 2 puff INHALATION RT-BID PRN 01/24/23 05/26/23 [Symbicort 160-4.5 Mcg Inhaler] Gabapentin 300 mg PO Q8H 05/26/23 05/26/23 Nicotine 14Mg/24Hr Patch [Habitrol] 1 patch TRANSDERM DAILY 05/26/23 05/26/23 Nicotine 7Mg/24Hr Patch [Habitrol] 1 patch TRANSDERM DIRECTED 05/26/23 05/26/23 oxyCODONE-APAP 10-325MG [Percocet 1 tab PO Q4HR PRN 05/26/23 05/26/23 10-325 mg] Previous Rx's Medication Instructions Recorded Aspirin EC [Ecotrin Low Dose] 81 mg PO DAILY 90 Days #90 tab 01/15/22 Ipratropium-Albuterol Nebulize 3 ml INHALATION RT-Q2H PRN each 05/17/23 [Duoneb 0.5 mg-3 mg/3 ml Soln] polyethylene glycoL 3350 [Miralax] 17 gm PO DAILY PRN packet 05/17/23 Cyclobenzaprine [Flexeril] 10 mg PO TID #90 tablet 05/31/23 Ferrous Sulfate [Iron (65 MG 325 mg PO DAILY #0 05/31/23 Elemental)] Gabapentin 300 mg PO Q8H #24 cap 05/31/23 Sennosides/Docusate Sodium [Senna 1 each PO DAILY PRN #20 tablet 05/31/23 Plus 8.6-50 mg Tablet] cefaDROXiL [Duricef] 500 mg PO Q12HR #10 cap 05/31/23 oxyCODONE-APAP 10-325MG [Percocet 1 tab PO Q4HR PRN #18 tab 05/31/23 10-325 mg] Allergies Allergy/AdvReac Type Severity Reaction Status Date / Time hydrocodone [From [place]] Allergy Itching Verified 05/26/23 15:04 Review of Systems ROS Other: All systems not noted in ROS Statement are negative. <Susan Garcia - Last Filed: 05/26/23 11:20> ROS Other: All systems not noted in ROS Statement are negative. <Kalen Florez - Last Filed: 06/02/23 06:05> ROS Statement: Those systems with pertinent positive or pertinent negative responses have been documented in the HPI. Past Medical History Past Medical History: COPD, GERD/Reflux, Osteoarthritis (OA), Vascular Disorder Additional Past Medical History / Comment(s): left foot fx-ok ,pain left leg- worse left hip( possible back related) see orthopedic DR with MRI scheduled today,hx colon polyps, trouble swallowing. some vomiting. pt states he does not use his inhalers. Pt rescheduled due to diarrhea. pt states lasted a day feels fine now. was not asked to see PCP. History of Any Multi-Drug Resistant Organisms: None Reported Date of last positivie culture/infection: None MDRO Source:: None Past Surgical History: Orthopedic Surgery Additional Past Surgical History / Comment(s): thumb and finger repair, colonoscopy Past Anesthesia/Blood Transfusion Reactions: No Reported Reaction Smoking Status: Current every day smoker - Past Family History Mother Family Medical History: No Reported History Father Family Medical History: Myocardial Infarction ([place]) <Susan Garcia - Last Filed: 05/26/23 11:20> General Exam <Susan Garcia - Last Filed: 05/26/23 11:20> General appearance: alert, in no apparent distress Head exam: Present: atraumatic, normocephalic, normal inspection Respiratory exam: Present: normal lung sounds bilaterally. Absent: respiratory distress, wheezes, rales, rhonchi, stridor Cardiovascular Exam: Present: regular rate, normal rhythm, normal heart sounds. Absent: systolic murmur, diastolic murmur, rubs, gallop, clicks GI/Abdominal exam: Present: soft, normal bowel sounds. Absent: distended, tenderness, guarding, rebound, rigid Extremities exam: Present: normal inspection Back exam: Present: tenderness. Absent: full ROM <Kalen Florez - Last Filed: 06/02/23 06:05> - General Exam Comments Initial Comments: Visual Physical Exam Vital signs reviewed General: Well-appearing, nontoxic, no acute distress. Head: Normocephalic, atraumatic Eyes: PERRLA, EOMI ENT: Airway patent Chest: Nonlabored breathing Skin: No visual rash, normal skin tone Neuro: Alert and oriented 3 Musculoskeletal: No gross abnormalities (Susan Garcia) Course Vital Signs 05/26/23 05/26/23 05/26/23 11:36 14:26 17:29 Temperature 98.6 F Pulse Rate 112 H 105 H 104 H Pulse Rate [ Pulse Oximetery ] Respiratory 22 18 20 Rate Blood Pressure 126/79 110/90 155/106 Blood Pressure [Supine] O2 Sat by Pulse 96 95 95 Oximetry 05/26/23 05/26/23 05/26/23 20:06 20:10 21:13 Temperature 98.7 F Pulse Rate 97 95 Pulse Rate [ 57 L Pulse Oximetery ] Respiratory 18 20 18 Rate Blood Pressure 128/77 120/62 Blood Pressure 116/65 [Supine] O2 Sat by Pulse 95 97 96 Oximetry Medical Decision Making <Susan Garcia - Last Filed: 05/26/23 11:20> - Lab Data Result diagrams: 05/28/23 07:02 05/28/23 07:02 - EKG Data -: EKG Interpreted by Me <Kalen Florez - Last Filed: 06/02/23 06:05> - Medical Decision Making I performed the quick note portion of this chart. Electronically signed by Susan Garcia PA-C (Susan Garcia) Was pt. sent in by a medical professional or institution ([facility], VIDEO GAME ENGINEER, urgent ca re, hospital, or retirement...) When possible be specific @ -Dr. Yao Did you speak to anyone other than the patient for history (EMS, parent, family, police, friend...)? What history was obtained from this source @ -No Did you review nursing and triage notes (agree or disagree)? Why? @ -I reviewed and agree with nursing and triage notes Were old charts reviewed (outside hosp., previous admission, EMS record, old EKG, old radiological studies, urgent care reports/EKG's, retirement records)? Report findings @ -[Reviewed recent surgical reports, imaging and laboratory studies Differential Diagnosis (chest pain, altered mental status, abdominal pain women, abdominal pain men, vaginal bleeding, weakness, fever, dyspnea, syncope, headache, dizziness, GI bleed, back pain, seizure, CVA, palpatations, mental health, musculoskeletal)? @ -Differential Back Pain: Strain, zoster, cauda equina syndrome, epidural abscess, vertebral osteomyelitis, discitis, fracture, subluxation, disc herniation, DJD, spinal stenosis, dissection, AAA, pancreatitis, peptic ulcer disease, pyelonephritis, kidney stone, this is not meant to be an all-inclusive list. EKG interpreted by me (3pts min.). @ -[As above X-rays interpreted by me (1pt min.). @ -None done CT interpreted by me (1pt min.). @ -CT thoracic/lumbar spine showing failure of hardware, loosening screw within edge of the thecal sac U/S interpreted by me (1pt. min.). @ -None done What testing was considered but not performed or refused? (CT, X-rays, U/S, labs)? Why? @ -None What meds were considered but not given or refused? Why? @ -None Did you discuss the management of the patient with other professionals (professionals i.e. , PA, VIDEO GAME ENGINEER, lab, RT, psych nurse, director social welfare, drill bit sharpener, teacher, civil preparedness training officer, geriatric case manager)? Give summary @ -I did update orthopedics who was notified of CT findings secondary stable for surgery tomorrow. Was smoking cessation discussed for >3mins.? @ -No Was critical care preformed (if so, how long)? @ -No Were there social determinants of health that impacted care today? How? (Homelessness, low income, unemployed, alcoholism, drug addiction, transportation, low edu. Level, literacy, decrease access to med. care, [place] [facility], rehab)? @ -No Was there de-escalation of care discussed even if they declined (Discuss DNR or withdrawal of care, Hospice)? DNR status @ -No What co-morbidities impacted this encounter? (DM, HTN, Smoking, COPD, CAD, Cancer, CVA, ARF, Chemo, Hep., AIDS, mental health diagnosis, sleep apnea, morbid obesity)? @ -None Was patient admitted / discharged? Hospital course, mention meds given and route, prescriptions, significant lab abnormalities, going to OR and other perti nent info. @ -Patient was admitted for surgical intervention, analgesic control patient's neurologically intact at this time. Undiagnosed new problem with uncertain prognosis? @ -No Drug Therapy requiring intensive monitoring for toxicity (Heparin, Nitro, Insulin, Cardizem)? @ -No Were any procedures done? @ -No Diagnosis/symptom? @ -Hardware failure, back pain Acute, or Chronic, or Acute on Chronic? @ -[Acute Uncomplicated (without systemic symptoms) or Complicated (systemic symptoms)? @ -Complicated Side effects of treatment? @ -[No Exacerbation, Progression, or Severe Exacerbation? @ -No Poses a threat to life or bodily function? How? (Chest pain, [place], [place], pneumonia, PE, COPD, DKA, ARF, appy, cholecystitis, CVA, Diverticulitis, Homicidal, Suicidal, threat to staff... and all critical care pts) @ -No (Kalen Florez) - Lab Data Lab Results 05/26/23 05/26/2324 Range/Units 11:46 11:46 11:46 WBC 8.9 (3.8-10.6) k/uL RBC 4.15 L (4.30-5.90) m/uL Hgb 10.8 L (13.0-17.5) gm/dL Hct 34.5 L (39.0-53.0) % MCV 83.1 (80.0-100.0) fL MCH 26.0 (25.0-35.0) pg MCHC 31.3 (31.0-37.0) g/dL RDW 21.9 H (11.5-15.5) % Plt Count 892 H D (150-450) k/uL MPV 7.5 Neutrophils % % Lymphocytes % % Monocytes % % Eosinophils % % Basophils % % Neutrophils # (1.3-7.7) k/uL Lymphocytes # (1.0-4.8) k/uL Monocytes # (0-1.0) k/uL Eosinophils # (0-0.7) k/uL Basophils # (0-0.2) k/uL Hypochromasia Marked Poikilocytosis Slight Anisocytosis Moderate Microcytosis Slight PT 10.7 (10.0-12.5) sec INR 1.0 (<1.2) APTT 27.0 (22.0-30.0) sec Sodium 136 L (137-145) mmol/L Potassium 5.1 (3.5-5.1) mmol/L Chloride 105 (98-107) mmol/L Carbon Dioxide 21 L (22-30) mmol/L Anion Gap 10 mmol/L BUN 15 (9-20) mg/dL Creatinine 0.83 (0.66-1.25) mg/dL Est GFR (CKD-EPI)AfAm >90 (>60 ml/min/1.73 sqM) Est GFR (CKD-EPI)NonAf >90 (>60 ml/min/1.73 sqM) Glucose 135 H (74-99) mg/dL Calcium 9.4 (8.4-10.2) mg/dL Total Bilirubin 0.6 (0.2-1.3) mg/dL AST 56 (17-59) U/L ALT 29 (4-49) U/L Alkaline Phosphatase 200 H (38-126) U/L Total Protein 7.4 (6.3-8.2) g/dL Albumin 3.9 (3.5-5.0) g/dL Globulin g/dL Albumin/Globulin Ratio Blood Type Blood Type Recheck Bld Type Recheck Status Antibody Screen Crossmatch Spec Expiration Date 05/27/23 05/27/23 05/27/23 Range/Units 09:43 15:56 15:56 WBC 8.7 (3.8-10.6) k/uL RBC 3.65 L (4.30-5.90) m/uL Hgb 9.8 L (13.0-17.5) gm/dL Hct 31.6 L (39.0-53.0) % MCV 86.7 (80.0-100.0) fL MCH 26.8 (25.0-35.0) pg MCHC 30.9 L (31.0-37.0) g/dL RDW 21.1 H (11.5-15.5) % Plt Count 541 H (150-450) k/uL MPV 7.4 Neutrophils % 80 % Lymphocytes % 10 % Monocytes % 6 % Eosinophils % 1 % Basophils % 1 % Neutrophils # 6.9 (1.3-7.7) k/uL Lymphocytes # 0.9 L (1.0-4.8) k/uL Monocytes # 0.6 (0-1.0) k/uL Eosinophils # 0.1 (0-0.7) k/uL Basophils # 0.1 (0-0.2) k/uL Hypochromasia Marked Poikilocytosis Slight Anisocytosis Moderate Microcytosis Slight PT (10.0-12.5) sec INR (<1.2) APTT (22.0-30.0) sec Sodium 135 L (137-145) mmol/L Potassium 4.7 (3.5-5.1) mmol/L Chloride 107 (98-107) mmol/L Carbon Dioxide 21 L (22-30) mmol/L Anion Gap 7 mmol/L BUN 12 (9-20) mg/dL Creatinine 0.55 L (0.66-1.25) mg/dL Est GFR (CKD-EPI)AfAm >90 (>60 ml/min/1.73 sqM) Est GFR (CKD-EPI)NonAf >90 (>60 ml/min/1.73 sqM) Glucose 107 H (74-99) mg/dL Calcium 8.2 L (8.4-10.2) mg/dL Total Bilirubin (0.2-1.3) mg/dL AST (17-59) U/L ALT (4-49) U/L Alkaline Phosphatase (38-126) U/L Total Protein (6.3-8.2) g/dL Albumin (3.5-5.0) g/dL Globulin g/dL Albumin/Globulin Ratio Blood Type O Positive Blood Type Recheck O Pos Bld Type Recheck Status No Antibody Screen NEGATIVE Crossmatch See Detail Spec Expiration Date 05/30/2023 - 234205/28/23 05/28/23 Range/Units 07:02 07:02 WBC 8.5 (3.8-10.6) k/uL RBC 4.09 L (4.30-5.90) m/uL Hgb 10.8 L (13.0-17.5) gm/dL Hct 34.9 L (39.0-53.0) % MCV 85.4 (80.0-100.0) fL MCH 26.4 (25.0-35.0) pg MCHC 31.0 (31.0-37.0) g/dL RDW 20.9 H (11.5-15.5) % Plt Count 571 H (150-450) k/uL MPV 7.3 Neutrophils % 77 % Lymphocytes % 11 % Monocytes % 7 % Eosinophils % 2 % Basophils % 1 % Neutrophils # 6.5 (1.3-7.7) k/uL Lymphocytes # 0.9 L (1.0-4.8) k/uL Monocytes # 0.6 (0-1.0) k/uL Eosinophils # 0.1 (0-0.7) k/uL Basophils # 0.1 (0-0.2) k/uL Hypochromasia Marked Poikilocytosis Slight Anisocytosis Moderate Microcytosis Slight PT (10.0-12.5) sec INR (<1.2) APTT (22.0-30.0) sec Sodium 136 L (137-145) mmol/L Potassium 4.5 (3.5-5.1) mmol/L Chloride 106 (98-107) mmol/L Carbon Dioxide 24 (22-30) mmol/L Anion Gap 6 mmol/L BUN 7 L (9-20) mg/dL Creatinine 0.55 L (0.66-1.25) mg/dL Est GFR (CKD-EPI)AfAm >90 (>60 ml/min/1.73 sqM) Est GFR (CKD-EPI)NonAf >90 (>60 ml/min/1.73 sqM) Glucose 115 H (74-99) mg/dL Calcium 8.5 (8.4-10.2) mg/dL Total Bilirubin 0.8 (0.2-1.3) mg/dL AST 46 (17-59) U/L ALT 18 (4-49) U/L Alkaline Phosphatase 182 H (38-126) U/L Total Protein 5.8 L (6.3-8.2) g/dL Albumin 3.0 L (3.5-5.0) g/dL Globulin 2.8 g/dL Albumin/Globulin Ratio 1.1 Blood Type Blood Type Recheck Bld Type Recheck Status Antibody Screen Crossmatch Spec Expiration Date - EKG Data EKG Comments: EKG performed at 14: 45 sinus tachycardia rate of 112 [place] 159 QRS 84 QT/QTc 324/383 (Kalen Florez) Disposition <Susan Garcia - Last Filed: 05/26/23 11:20> Time of Disposition: 13:08 <Kalen Florez - Last Filed: 06/02/23 06:05> Clinical Impression: Hardware failure, Back pain Disposition: ADMITTED IP TO THIS HOSP Condition: Fair
[2023-05-26] MEDS ORDERED: NALOXONE 0.4 MG/ML 1 ML VIAL IV PRN (11:22)
[2023-05-26] MEDS ORDERED: ONDANSETRON 4 MG/2 ML VIAL IVP PRN (11:22)
[2023-05-26 12:26] LABS: Anisocytosis Moderate; HCT 34.5 % (39.0-53.0); HGB 10.8 gm/dL (13.0-17.5); Hypochromasia Marked; MCHC 31.3 g/dL (31.0-37.0); MCV 83.1 fL (80.0-100.0); Mean Platelet Volume 7.5; Microcytosis Slight; Platelet Count 892 k/uL (150-450); Poikilocytosis Slight; RBC 4.15 m/uL (4.30-5.90); RDW 21.9 % (11.5-15.5); WBC 8.9 k/uL (3.8-10.6)
[2023-05-26 12:30] LABS: Prothrombin Time 10.7 sec (10.0-12.5)
[2023-05-26 12:41] LABS: ALT 29 U/L (4-49); AST 56 U/L (17-59); African American GFR (CKD) >90 (>60 ml/min/1.73 sqM); Albumin 3.9 g/dL (3.5-5.0); Alkaline Phosphatase 200 U/L (38-126); Anion Gap 10 mmol/L; Blood Urea Nitrogen 15 mg/dL (9-20); Calcium 9.4 mg/dL (8.4-10.2); Carbon Dioxide 21 mmol/L (22-30); Chloride 105 mmol/L (98-107); Glucose 135 mg/dL (74-99); Non-African American GFR(CKD) >90 (>60 ml/min/1.73 sqM); Potassium 5.1 mmol/L (3.5-5.1); Sodium 136 mmol/L (137-145); Total Bilirubin 0.6 mg/dL (0.2-1.3); Total Protein 7.4 g/dL (6.3-8.2)
--- NOTE | 2023-05-26 14:02 | CT ---
EXAMINATION TYPE: CT thor lumbar spine wo con CT DLP: 2380 mGycm, Automated exposure control for dose reduction was used. DATE OF EXAM: 05/26/2023 1:33 PM CLINICAL INDICATION:Male, 67 years old with history of pain s/p lumbar fusion; pain s/p lumbar fusion COMPARISON: 05/12/2023 TECHNIQUE: Axial images of the thoracic and lumbar spine were obtained without contrast. Coronal and sagittal reformats were performed. 3-D reformats of the bones were created on a separate workstation and submitted for review. CT Contrast: Contrast used: mL of , none. Oral contrast used: none. FINDINGS: Postsurgical changes to the spine with fixation hardware extending from T10 to S1. There is retractio n of the fixation terra in the upper spine off of the right pedicle screw at T10 now 2.7 cm away from t he threaded screw. The left pedicle screw and fixation rods are attached. There is also retraction of the T11 and T12 pedicle screws posteriorly. The T11-T12 right pedicle screws are still attached to t he terra. The L1 pedicle screw may be minimally displaced posteriorly 2-3 mm. The remainder of the leve ls are felt to be similar. The T11 right pedicle screw is entering the thecal sac on the right. Multilevel degeneration changes throughout the remainder of the spine. The remainder of the fixation hardware is felt to be in stable position. Discectomy at L2-L3, L3-L4, L4-L5 and L5-S1. Multilevel de generation changes with osteophyte formation disc space narrowing and facet joint arthropathy through out the spine. Surgical skin rocio are present. There is laminectomy changes at L2-L5. Visualized portions of the abdomen demonstrate scattered colonic diverticula with severe atherosclero sis. There is left common iliac artery stent graft present. Hepatic lobular contour noted. Few scatte red calcified granulomas within the liver. Within the lungs there is some peripheral probable streaky atelectasis and/or scarring possibly sequela prior atypical pneumonia. IMPRESSION: Right fixation bar has migrated posteriorly off the T10 right pedicle screw which is now 2.7 cm from the screw, previously it was immediately adjacent to the screw measuring 3 mm. Other screws have migr ated posteriorly at T11, T12 and L1. The T11 right pedicle screw is now entering the thecal sac sligh tly. Surgical consultation recommended. Findings communicated to Dr. Yao on 05/26/2023 1:[address] Uriah Licea.
[2023-05-26] MEDS: HYDROmorphone 0.5 MG/0.5 ML SYRINGE IVP STA (14:32)
[2023-05-26] MEDS ORDERED: HYDROcodone/APAP 10-325MG 1 EACH TAB PO PRN (15:10)
[2023-05-26] MEDS: GABAPENTIN 300 MG CAP PO SCH (15:44)
[2023-05-26] MEDS: HYDROmorphone 0.5 MG/0.5 ML SYRINGE IVP PRN (17:17)
[2023-05-26] MEDS: QUEtiapine 100 MG TAB PO SCH (20:48)
[2023-05-26] MEDS ORDERED: SYMBICORT 160-4.5 MCG INHALER INHALATION PRN (23:53)
--- NOTE | 2023-05-26 23:54 | P.CONS ---
History of Present Illness - Reason for Consult Consult date: 05/26/23 - History of Present Illness Patient is a 67-year-old male with a PMH of COPD, peripheral artery disease status post left common iliac artery stenting, tobacco abuse, status post elective thoracolumbar decompression and fusion 2 weeks ago who was sent in from orthopedic surgery clinic after he was noted to have broken hardware. The patient was seen for his regularly scheduled appointment today where he had endorsed persistent lower back pain. A subsequent x-ray revealed a broken screw and a large fluid collection. Patient reports ongoing 7 out of 10 diffuse lower back pain which improved to a 2 out of 10 with pain medication in the emergency room. Denies any additional complaints. He denies experiencing chest discomfort, shortness of breath, fever, chills, cough, nausea, vomiting, abdominal pain, diarrhea. Thoracic/lumbar spine CT in the emergency room revealed migrated hardware. EKG revealed sinus tachycardia with APCs at 102 bpm with T wave inversion in leads III and aVF with no additional ST/T wave changes noted as reviewed by me. Laboratory evaluation was remarkable for hemoglobin 10.8 (better than baseline), sodium 136, CO2 21, glucose 135, and alk phos 200. ED documentation reviewed. Review of systems: Pertinent positives and negatives as discussed in HPI, a complete review of systems was performed and all other systems are negative. Physical examination: Vital signs reviewed General: non toxic, no distress, appears at stated age, normal weight Derm: no unusual rashes/lesions, warm Head: atraumatic, normocephalic, symmetric Eyes: EOMI, no lid lag, anicteric sclera, pupils equal round reactive to light ENT: Nose and ears atraumatic Neck: No cervical lymphadenopathy, trachea midline, supple Mouth: no lip lesion, mucus membranes moist Cardiovascular: S1S2 reg, no murmur, positive dorsalis pedis pulse bilateral, no edema Lungs: CTA bilateral, no rhonchi, no rales, no accessory muscle use Abdominal: soft, nontender to palpation, no guarding Ext: muscle strength 5 out of 5 in all 4 extremities grossly, no gross muscle atrophy, no contractures, large postsurgical incision with rocio from thoracic midline spine down to pelvis Neuro: CN II-XI grossly intact, no gross focal neuro deficits Psych: Alert, oriented, appropriate affect Assessment: Chronic conditions: Peripheral arterial disease, COPD, tobacco abuse Status post thoracolumbar decompression and fusion with subsequent hardware displacement and malfunction Imaging: Thoracic/lumbar spine CT in the emergency room revealed migrated hardware. EKG revealed sinus tachycardia with APCs at 102 bpm with T wave inversion in leads III and aVF with no additional ST/T wave changes noted as reviewed by me. Data Review: Laboratory evaluation was remarkable for hemoglobin 10.8 (better than baseline), sodium 136, CO2 21, glucose 135, and alk phos 200. Plan: Continue with the following home medications: -Seroquel 100 mg p.o. twice daily -Gabapentin 300 mg p.o. every 8 hours -Lasix 40 mg p.o. twice daily -Symbicort twice daily Defer management of pain control, resumption of home aspirin, and DVT prophylaxis to primary surgery service We appreciate this opportunity to be involved in this patient's care. We will follow the patient with you. For any further questions, please not hesitate to contact the sound inpatient team. Past Medical History Past Medical History: COPD, GERD/Reflux, Osteoarthritis (OA), Vascular Disorder Additional Past Medical History / Comment(s): left foot fx-ok ,pain left leg- worse left hip( possible back related) see orthopedic DR with MRI scheduled today,hx colon polyps, trouble swallowing. some vomiting. pt states he does not use his inhalers. Pt rescheduled due to diarrhea. pt states lasted a day feels fine now. was not asked to see PCP. History of Any Multi-Drug Resistant Organisms: None Reported Year Discovered:: None MDRO Source:: None Past Surgical History: Orthopedic Surgery Additional Past Surgical History / Comment(s): thumb and finger repair, colonoscopy. [id number] decomp and fusion 05/11 Past Anesthesia/Blood Transfusion Reactions: No Reported Reaction Past Psychological History: Anxiety, Depression Smoking Status: Former smoker Past Alcohol Use History: None Reported Additional Past Alcohol Use History / Comment(s): started smoking 1970 ,1ppd. drank 6-12 beers per day, now down to couple beers a day sometimes more. Past Drug Use History: None Reported Additional Drug Use History / Comment(s): marijuana 1 joint daily pt aware not to use 24 hrs before procedure - Past Family History Mother Family Medical History: No Reported History Father Family Medical History: Myocardial Infarction (PR) Medications and Allergies Home Medications Medication Instructions Recorded Confirmed Type Omeprazole [PriLOSEC] 20 mg PO DAILY 01/13/22 05/26/23 History QUEtiapine FUMARATE [QUEtiapine 100 mg PO BID 01/13/22 05/26/23 History FUMARATE ER] Thiamine [Vitamin B-1] 100 mg PO BID 01/13/22 05/26/23 History Aspirin EC [Ecotrin Low Dose] 81 mg PO DAILY 90 Days #90 tab 01/15/22 05/26/23 Rx Albuterol Inhaler [Ventolin Hfa 2 puff INHALATION RT-Q4H PRN 01/24/23 05/26/23 History Inhaler] Budesonide/Formoterol Fumarate 2 puff INHALATION RT-BID PRN 01/24/23 05/26/23 History [Symbicort 160-4.5 Mcg Inhaler] Amoxic-Pot Clav 875-125Mg 1 tab PO Q12HR 4 Days #8 tab 05/17/23 05/26/23 Rx [Augmentin 875-125] Cyclobenzaprine [Flexeril] 5 mg PO TID PRN tab 05/17/23 05/26/23 Rx Docusate [Colace] 100 mg PO BID PRN cap 05/17/23 05/26/23 Rx Furosemide [Lasix] 40 mg PO BID 7 Days #14 tablet 05/17/23 05/26/23 Rx Ipratropium-Albuterol Nebulize 3 ml INHALATION RT-Q2H PRN each 05/17/23 05/26/23 Rx [Duoneb 0.5 mg-3 mg/3 ml Soln] Mag Hydrox/Al Hydrox/Simeth 30 ml PO Q4HR PRN ml 05/17/23 05/26/23 Rx [Maalox] polyethylene glycoL 3350 [Miralax] 17 gm PO DAILY PRN packet 05/17/23 05/26/23 Rx Ferrous Sulfate [Iron (65 MG 325 mg PO BID 05/26/23 05/26/23 History Elemental)] Gabapentin 300 mg PO Q8H 05/26/23 05/26/23 History Nicotine 14Mg/24Hr Patch [Habitrol 1 patch TRANSDERM DAILY 05/26/23 05/26/23 History 14Mg/24Hr Patch] Nicotine 7Mg/24Hr Patch [Habitrol] 1 patch TRANSDERM DIRECTED 05/26/23 05/26/23 History Sennosides-Docusate Sodium 2 tab PO DAILY PRN 05/26/23 05/26/23 History [Senokot-S] oxyCODONE-APAP 10-325MG [Percocet 1 tab PO Q4HR PRN 05/26/23 05/26/23 History 10-325 mg] Allergies Allergy/AdvReac Type Severity Reaction Status Date / Time hydrocodone [From [place]] Allergy Itching Verified 05/26/23 15:04 Physical Exam Vitals: Vital Signs Temp Pulse Resp BP Pulse Ox 05/26/23 22:00 16 05/26/23 21:13 95 18 120/62 96 05/26/23 20:06 97 18 128/77 95 05/26/23 17:29 104 H 20 155/106 95 05/26/23 14:26 105 H 18 110/90 95 05/26/23 11:36 98.6 F 112 H 22 126/79 96 Intake and Output 05/26/23 05/26/23 05/27/23 14:59 22:59 06:59 Other: Weight 95.254 kg 95.254 kg Results CBC & Chem 7: 05/26/23 11:46 05/26/23 11:46 Labs: Abnormal Lab Results - Last 24 Hours (Table) 05/26/23 05/26/23 Range/Units 11:46 11:46 RBC 4.15 L (4.30-5.90) m/uL Hgb 10.8 L (13.0-17.5) gm/dL Hct 34.5 L (39.0-53.0) % RDW 21.9 H (11.5-15.5) % Plt Count 892 H D (150-450) k/uL Sodium 136 L (137-145) mmol/L Carbon Dioxide 21 L (22-30) mmol/L Glucose 135 H (74-99) mg/dL Alkaline Phosphatase 200 H (38-126) U/L
[2023-05-27] MEDS: GABAPENTIN 300 MG CAP PO SCH (01:10)
--- NOTE | 2023-05-27 07:31 | P.HPOR ---
History of Present Illness H&P Date: 05/27/23 Chief Complaint: Back pain, swelling 67 yo male presented to the office yesterday after T10-P for follow up on his surgery. He has been in [facility]. He states a few days ago he moved abruptly and felt sharp pain in his back as well as a loud audible pop noise and ever since then he has had swelling about the upper portion of his incision as well as pain in his back and it is severe and not getting any better. He denies any neurological signs with this, states his legs still feel much better after the surgery and stronger. He states no f/c/sob/cp at this time. Denies any perineal numbness/tingling. States no other issues. Review of Systems 14 points review of systems completed and as stated in HPI, all other systems reviewed are negative. Constitutional: Reports as per HPI Past Medical History Past Medical History: COPD, GERD/Reflux, Osteoarthritis (OA), Vascular Disorder Additional Past Medical History / Comment(s): left foot fx-ok ,pain left leg- worse left hip( possible back related) see orthopedic DR with MRI scheduled today,hx colon polyps, trouble swallowing. some vomiting. pt states he does not use his inhalers. Pt rescheduled due to diarrhea. pt states lasted a day feels fine now. was not asked to see PCP. History of Any Multi-Drug Resistant Organisms: None Reported Date of last positivie culture/infection: None MDRO Source:: None Past Surgical History: Orthopedic Surgery Additional Past Surgical History / Comment(s): thumb and finger repair, colonoscopy. [id number] decomp and fusion 05/11 Past Anesthesia/Blood Transfusion Reactions: No Reported Reaction Past Psychological History: Anxiety, Depression Smoking Status: Former smoker Past Alcohol Use History: None Reported Additional Past Alcohol Use History / Comment(s): started smoking 1970 ,1ppd. drank 6-12 beers per day, now down to couple beers a day sometimes more. Past Drug Use History: None Reported Additional Drug Use History / Comment(s): marijuana 1 joint daily pt aware not to use 24 hrs before procedure - Past Family History Mother Family Medical History: No Reported History Father Family Medical History: Myocardial Infarction (ME) Medications and Allergies Home Medications Medication Instructions Recorded Confirmed Type Omeprazole [PriLOSEC] 20 mg PO DAILY 01/13/22 05/26/23 History QUEtiapine FUMARATE [QUEtiapine 100 mg PO BID 01/13/22 05/26/23 History FUMARATE ER] Thiamine [Vitamin B-1] 100 mg PO BID 01/13/22 05/26/23 History Aspirin EC [Ecotrin Low Dose] 81 mg PO DAILY 90 Days #90 tab 01/15/22 05/26/23 Rx Albuterol Inhaler [Ventolin Hfa 2 puff INHALATION RT-Q4H PRN 01/24/23 05/26/23 History Inhaler] Budesonide/Formoterol Fumarate 2 puff INHALATION RT-BID PRN 01/24/23 05/26/23 History [Symbicort 160-4.5 Mcg Inhaler] Amoxic-Pot Clav 875-125Mg 1 tab PO Q12HR 4 Days #8 tab 05/17/23 05/26/23 Rx [Augmentin 875-125] Cyclobenzaprine [Flexeril] 5 mg PO TID PRN tab 05/17/23 05/26/23 Rx Docusate [Colace] 100 mg PO BID PRN cap 05/17/23 05/26/23 Rx Furosemide [Lasix] 40 mg PO BID 7 Days #14 tablet 05/17/23 05/26/23 Rx Ipratropium-Albuterol Nebulize 3 ml INHALATION RT-Q2H PRN each 05/17/23 05/26/23 Rx [Duoneb 0.5 mg-3 mg/3 ml Soln] Mag Hydrox/Al Hydrox/Simeth 30 ml PO Q4HR PRN ml 05/17/23 05/26/23 Rx [Maalox] polyethylene glycoL 3350 [Miralax] 17 gm PO DAILY PRN packet 05/17/23 05/26/23 Rx Ferrous Sulfate [Iron (65 MG 325 mg PO BID 05/26/23 05/26/23 History Elemental)] Gabapentin 300 mg PO Q8H 05/26/23 05/26/23 History Nicotine 14Mg/24Hr Patch [Habitrol 1 patch TRANSDERM DAILY 05/26/23 05/26/23 History 14Mg/24Hr Patch] Nicotine 7Mg/24Hr Patch [Habitrol] 1 patch TRANSDERM DIRECTED 05/26/23 0 05/26/23 History Sennosides-Docusate Sodium 2 tab PO DAILY PRN 05/26/23 05/26/23 History [Senokot-S] oxyCODONE-APAP 10-325MG [Percocet 1 tab PO Q4HR PRN 05/26/23 05/26/23 History 10-325 mg] Allergies Allergy/AdvReac Type Severity Reaction Status Date / Time hydrocodone [From [place]] Allergy Itching Verified 05/26/23 15:04 Physical Examination Osteopathic Statement: *. No significant issues noted on an osteopathic structural exam other than those noted in the History and Physical/Consult. PHYSICAL EXAMINATION: Vitals: stable General: Awake, alert, appropriate for age, in no acute distress. HEENT: No unusual neck masses around region of lateral neck triangle, thyroid, supraclavicular groove. [Heart: Regular rate and rhythm, normal S1, S2 and no murmur/gallop.] [Lungs: Clear to auscultation bilaterally with no use of accessory muscles.] Extremities: Skin warm and dry without no acute lesions, coloration, temperature, skin intact, no tenderness or erythema. Integument: Hairy patches: Absent Dorsal skin dimples: Absent Cafe au lait spots: Absent Surgical incisions: healed well over about the superior portion incision there is a large fluid collection with palpable hardware no skin breakage drainage or purulence noted Palpation: Please see Pain drawing on Intake sheet for further detail. (Tenderness = T, Nontender = NT, Swelling = S, Ecchymosis = E) Findings on Midline and paraspinal palpation and percussion: Cervical: NT Thoracic: tender Lumbar: tender Sacral: NT Special findings: none POSTURAL and MUSCULO-SKELETAL EVALUATION: Coronal Balance: Neutral Recumbent testing: Patient can lay flat on back Sagittal Balance: positive Shoulder Profile: [Level] Pelvic Girdle: [Level] VASCULAR STATUS : Wrist Pulses: [2/4 bilateral radial and ulnar] Pedal Pulses: [2/4 bilateral DP and PT] Color: [Normal] Edema: [None] NEUROLOGIC EXAMINATION: Mental Status: Awake and alert, fully oriented, with normal attention, concentration and memory, and fluent, appropriate speech. Cranial Nerves: I: Olfactory not tested. II: Visual acuity normal, no visual field deficit noted with confrontation. III,IV: Normal pupillary reflexes & intact extraocular movements without nystagmus. V,: Intact symmetrical facial sensation. VII: Intact symmetrical facial motor movement VIII: Hearing intact. IX,X: Intact gag, swallow, & normal voice. XI: Sternocleidomastoid, trapezius function intact. XII: Tongue midline with normal movements. Special Tests: L'hermitte's Sign: Absent Spurling'Sign: Absent Bilateral Cubital percussion test: Absent Bilateral Aysha-Tinel sign - Carpal region: Absent Bilateral Straight Leg Raising: Absent Bilateral Motor Exam (0-5/5, N/T) STRENGTH UPPER EXTREMITY [5]/5 in all major muscle groups of the UE b/l LOWER EXTREMITY 4/5 in all major muscle groups of the LE b/l -deconditioining and current state. no focal deficits REFLEXES Upper Extremity: RIGHT [2]/4 LEFT [2]/4 Lower Extremity: RIGHT [2]/4 LEFT [2]/4 Pathological Reflexes Jackson's: RIGHT [Absent] LEFT [Absent] Babinski: RIGHT [Absent] LEFT [Absent] Clonus: RIGHT [None] LEFT [None] SENSORY Pain and LT sense [Intact C5-T1 and L2-S1] Dermatomal deficit [None] Gait and Functional Evaluation: Ambulatory aids: wheelchair Results x-rays and CT reviewed. This demonstrates hardware failure of the superior portion of the construct cranially by T10 where the screw head has broken at T10 and the screws have pulled out from T10 through L2. The remaining screws appear to be in position however is uncertain of their stability. Whether acute fracture dislocation otherwise noted. - Labs Labs: Abnormal Lab Results - Last 24 Hours (Table) 05/26/23 05/26/23 Range/Units 11:46 11:46 RBC 4.15 L (4.30-5.90) m/uL Hgb 10.8 L (13.0-17.5) gm/dL Hct 34.5 L (39.0-53.0) % RDW 21.9 H (11.5-15.5) % Plt Count 892 H D (150-450) k/uL Sodium 136 L (137-145) mmol/L Carbon Dioxide 21 L (22-30) mmol/L Glucose 135 H (74-99) mg/dL Alkaline Phosphatase 200 H (38-126) U/L H & H 05/26/23 Range/Units 11:46 Hgb 10.8 L (13.0-17.5) gm/dL Hct 34.5 L (39.0-53.0) % Coagulation 05/26/23 Range/Units 11:46 INR 1.0 (<1.2) Result Diagrams: 05/26/23 11:46 05/26/23 11:46 Assessment and Plan Assessment: 67-year-old male with catastrophic hardware failure 2 weeks status post T10 to pelvis decompression and fusion low back pain Plan: Spine Surgery Clinical and Risk Review Ad Hester is a [Demographic] presenting for evaluation of [chief complaint]. It was my pleasure to have seen and examined Ad Hester. In our visit today we have had a chance to go over subjective complaints, physical examination findings and treatments including the natural course his tory without intervention and various interventional options. The patients imaging demonstrates catastrophic hardware failure T10-L2. On physical exam, Ad Hester demonstrates large fluid collection cranial incision with palpable hardware protrusion. No purulence or drainage. I have explained to the patient that as their condition progresses it will cause further neurological deficits and eventual paralysis. Based on the patients imaging, physical exam, and the rapid progression and disabling nature of their symptoms, at this time I recommend surgery in the form or a: Revision [id number] I discussed the risk and benefits of this procedure at length with Ad Hester. The patient agreed to considered pursuing the procedure abovementioned. Prior to surgery, she should follow up with her PCP (Cardio, ID, IM etc) for clearance. Questions were invited and answered, and the patient wishes to pr oceed as outlined below. Currently, I am recommendin. Revision [id number] 2. Follow up with PCP for surgical clearance 3. Review of surgical risks and benefits as well as an educational packet on the proposed surgical procedure. Risks: All surgical procedures come with inherent risks, including those related to positioning, anesthesia, intraoperative findings, and postoperative complications. It is important to understand that surgery does not come with any guarantee of a successful outcome as complications and adverse events are always possible. The patient was given a handout in office today discussing the surgical procedure and risks associated with the intervention, both of which were discussed with the patient. These risks include but are not limited to the following: * Experiencing same, different or even worse symptoms in back, neck, arms, or legs compared to before surgery. * Requiring further surgery or other forms of treatment presently or at some time in the future at same or other levels of the intended spine surgery. * On an extreme but fortunately relatively rare basis severe complication such as blindness, stroke, heart attack, temporary and/or permanent nerve injury, paralysis, coma, or may occur, sometimes without known explanation. * Surgical complications may include but are not limited to risk of infection, fluid accumulation in the surgical dissection site, including a seroma or hematoma, that requires additional surgery, wound drainage, bleeding, new numbness or weakness, vision changes/loss, spinal fluid leakage, non-healing and/or infected incision, headaches, difficulty or inability to swallow, hoarseness, hemopneumothorax, pneumothorax, impotence, retrograde ejaculation, vaginal dryness; injury to nerves, spinal cord, blood vessels, lymphatics or other vital organs (i.e., bowel injury, injury to the great vessels); heterotopic bone formation; complications related to the hardware such as screws, rods, cages including misplaced hardware, device failure, instrumentation at the wrong spine level, hardware fracture/breakage, or hardware loosening; vertebral failure of the spinal column above or below the newly placed hardware; retained surgical instrumentations or devices and the need for further surgery. * Medical risks of the planned spine surgery include but are not limited to generalized Infections to the whole body or local areas outside of the surgical site (sepsis), heart attack, bleeding, anaphylaxis, meningitis, seizure, epilepsy, hearing loss, burn quintana, laceration of the head or other areas of the body, bruising, hypersensitivity of the skin, bladder over diste nsion; allergic reaction; shoulder injury related to positioning; fat, blood and air clots to other areas of the body like heart, lungs, brain; failure of internal organs such as lungs, kidneys, liver and excessive bleeding. If blood transfusions are necessary, note that transfusions may cause intolerance reactions such as anaphylaxis or other complex reactions. * Despite best efforts, the results of spine surgery might not heal in terms of bone, soft tissues such as skin, fascia, ligaments, and joints. Additionally, in order to achieve best possible results, spine surgery may be carried out b eyond the initially planned levels and involve decompression, fusion including insertion of hardware at levels other than the original intended area of surgical interest change some portions of the procedure in order to ensure the best possible outcomes. * With spine surgery and spinal fusion, there are different off label uses of instrumentation (devices, implants and hardware) as well as biological substances (bone morphogenic proteins, demineralized bone matrix) as well as using extra bone from allograft sources (i.e. cadaver bone) or autograft (iliac crest bone, ribs, or the spine itself). The patient has been given information about these practices and their inherent risks and benefits. The patient has had a chance to review all the listed information, has been given print outs detailing this information, and has had all his/her questions answered to their satisfaction. It was my pleasure to have seen and examined Lenny Hester. In our visit today we have had a chance to go over my understanding of our patient's current condition, the natural course history without intervention and various interventional options. Questions were invited and answered, and the patient wishes to proceed as outlined above. I have seen and examined the patient for 25 minutes and we have spent more than 50% of the time in repeat and detailed counseling about the patient's condition, its natural course history with out and as much as can be predicted with surgery and re-review of various surgical treatment options. In conclusion, Lenny Hester and requested we proceed with the above suggested surgery and are willing to accept risks and limitations of the suggested surgery as nature of the disease process and our best attempts at treatment for the condition. Thank you again for allowing us to be part of your patient's care. Please don't hesitate to contact me if you have any further questions. Signed and authenticated by: Jluis Brooks [facility] [address] [place] [address] [place] [address] [address]
[2023-05-27] MEDS ORDERED: SUCCINYLCHOLINE CHLORIDE 200 MG/10 ML VIAL IV ONE (08:50)
[2023-05-27] MEDS ORDERED: SUGAMMADEX SODIUM 200 MG/2 ML SDV IV ONE (08:50)
[2023-05-27] MEDS ORDERED: fentaNYL (PF) 50 MCG/ML 2 ML AMP ONE (08:50)
[2023-05-27] MEDS ORDERED: TRANEXAMIC 1,000 MG/100ML-NACL PREMIX BAG ONE (08:50)
[2023-05-27] MEDS ORDERED: HYDROmorphone (PF) 1 MG/ML ONE (08:50)
[2023-05-27] MEDS ORDERED: ROCURONIUM 10 MG/ML (5 ML VIAL) IV ONE (08:50)
[2023-05-27] MEDS ORDERED: MIDAZOLAM 2 MG/2 ML VIAL ONE (08:50)
[2023-05-27] MEDS ORDERED: PHENYLEPHRINE 10 MG/ML VIAL ONE (08:50)
[2023-05-27] MEDS ORDERED: ALBUMIN HUMAN 5% (25gm) 500 ML VIAL IVPB ONE (08:50)
[2023-05-27] MEDS ORDERED: PROPOFOL 10 MG/ML 20 ML VIAL IV ONE (08:50)
[2023-05-27] MEDS ORDERED: LIDOCAINE 1% INJ 10MG/ML (20 ML MDV) ONE (08:50)
[2023-05-27] MEDS ORDERED: KETAMINE HCL IN 0.9 % NACL 50 MG/5 ML SYRINGE ONE (08:50)
[2023-05-27] MEDS: LACTATED RINGERS 1,000 ML IV ONE ×6 (08:55→13:46)
--- NOTE | 2023-05-27 09:40 | P.ANPRN ---
Procedure Note - Anesthesia - Invasive Line Left Arterial Line Time Out Performed: Yes Date of Procedure: 05/27/23 Time of Procedure: 07:45 Location of Patient: PreOp Preparation: Sterile Prep Arterial Line Location: Briachial Ultrasound Used: Yes Purpose - Visualization and Identification of Vasculature: Yes Image Stored and Saved: Yes Narrative: Invasive line placement per sterile protocol utilized.
[2023-05-27] MEDS: VANCOMYCIN 1,000 MG VIAL MISCELLANE ONE ×2 (09:46→11:40)
[2023-05-27] MEDS: TOBRAMYCIN SULFATE 1.2 GM VIAL MISCELLANE ONE (09:46)
[2023-05-27] MEDS: THROMBIN (BOVINE) 5,000 UNIT VIAL MISCELLANE ONE (09:52)
[2023-05-27] MEDS: GELATIN SPONGE,ABSORB (LARGE) 1 EACH SPONGE MISCELLANE ONE (09:53)
[2023-05-27] MEDS: GENTAMICIN 80 MG in SODIUM CHLORIDE 0.9% IRRIGATIO 3,000 ML IRRIGATION ONE (10:02)
[2023-05-27] MEDS: ceFAZolin 3,000 MG in SODIUM CHLORIDE 0.9% IRRIGATIO 3,000 ML IRRIGATION ONE (10:02)
--- NOTE | 2023-05-27 12:09 | P.PN ---
Progress Note - Text Progress Note Date: 05/27/23 Brief Post Op: Surgeon: Maximilian Pre op dx; hardware failure T10 to pelvis Post op dx: same Procedure: revision T8 to pelvis decompression fusion and posterior lateral Anesthesia: GETA EBL: 7 50 mL Fluids: 2500 UO: 550 Dispo: Stable to PACU Post op Plan: Post operative noncontrasted CT scan Encourage ambulation IS 10x/hr Teds/SCDs Pain control No brace needed for ambulation Record Drain output
[2023-05-27] MEDS: fentaNYL (PF) 50 MCG/ML 2 ML AMP IVP ONE (12:25)
--- NOTE | 2023-05-27 12:25 | XR ---
EXAMINATION TYPE: XR thoraco lumbar junction, FL guidance operating room DATE OF EXAM: 05/27/2023 COMPARISON: CT 1 day earlier HISTORY: Hardware revision TECHNIQUE: Fluoroscopy. Intraoperative 2 views thoracolumbar spine. FINDINGS: Fluoroscopic guidance was provided during intraoperative surgical revision procedure perfor med by spine surgeon. A total of 72 seconds of fluoroscopic time was utilized during the procedure a nd 6 spot intraoperative images are acquired. Intraoperative images obtained show some removal of al gical hardware. Please refer to procedure note for further details. TOTAL DAP = 19.533 Gy x cm2. IMPRESSION: As above
[2023-05-27] MEDS: HYDROmorphone 0.5 MG/0.5 ML SYRINGE IVP ONE ×3 (13:10→13:35)
[2023-05-27] MEDS: ALBUTEROL NEBULIZED 2.5 MG/3 ML INHALATION ONE (13:35)
[2023-05-27] MEDS: TRANEXAMIC ACID 1,000 MG in SODIUM CHLORIDE 0.9% 100 ML IVPB ONE (14:08)
[2023-05-27] MEDS: FUROSEMIDE 40 MG TAB PO SCH (14:09)
[2023-05-27] MEDS: oxyCODONE-APAP 10-325MG 1 EACH TAB PO PRN (14:14)
--- NOTE | 2023-05-27 14:32 | P.OP ---
Date of Procedure: 05/27/23 Preoperative Diagnosis: 1. CATESTROPHIC HARDWARE FAILURE [id number] 2. T11 LEFT PEDICLE FRACTURE 3. BACK PAIN SP [id number] DECOMPRESSION AND FUSION 4. SEROMA 5. OSTEOPENIA Postoperative Diagnosis: 1. CATESTROPHIC HARDWARE FAILURE [id number] 2. T11 LEFT PEDICLE FRACTURE 3. BACK PAIN SP [id number] DECOMPRESSION AND FUSION 4. SEROMA 5. OSTEOPENIA Procedure(s) Performed: 1. REVISION T8-PELVIS POSTEROLATERAL INSTRUMENTED FUSION 2. REMOVAL OF HARDWARE T10-S1 WITH REPLACEMENT OF HARDWARE T8-S1 BILATERAL DUE TO SCREW FAILURE AND BREAKAGE 3. TENSION BAND PLACEMENT T7-T10 4. REVISION DECOMPRESSION L2-S1 5. IRRIGATION AND DEBRIDEMENT LUMBAR SPINE 45 X 20 X 15 CM USING THE FOLLOWING: -KNIFE TO REMOVE SKIN AND NECROTIC DEEP TISSUE -RONGURE TO REMOVE BONE, DEBRIDE BONE AND SOFT TISSUE -CURETTE TO DEBRIDE DURAL REGIONS, BONE AND SOFT TISSUE WELL MUSCLE Implants: REMOVAL OF LIFE SPINE ARX SCREWS AND RODS PLACEMENT OF GREY EVEREST RODS AND SCREWS AUTOGRAFT Anesthesia: KAMILLAA Surgeon: Jluis Yao Senior Regulatory Affairs Specialist #1: Abel Blackman (WAS PRESENT AND ASSISTED WITH ALL ASPECTS OF THE CASE FROM POSITION TO CLOSURE) Estimated Blood Loss (ml): 750 IV fluids (ml): 2,500 Urine output (ml): 550 Pathology: none sent Condition: stable Disposition: PACU Indications for Procedure: Ad Hester is a 67 YO MALE presenting for evaluation of BACK PAIN AND HARDWARE FAILURE. It was my pleasure to have seen and examined Ad Hester. In our visit today we have had a chance to go over subjective complaints, physical examination findings and treatments including the natural course history without intervention and various interventional options. The patients imaging demonstrates catastrophic hardware failure T10-L2. On physical exam, Ad Hester demonstrates large fluid collection cranial incision with palpable hardware protrusion. No purulence or drainage. I have explained to the patient that as their condition progresses it will cause further neurological deficits and eventual paralysis. Based on the patients imaging, physical exam, and the rapid progression and disabling nature of their symptoms, at this time I recommend surgery in the form or a: Revision [id number] I discussed the risk and benefits of this procedure at length with Ad Hester. The patient agreed to considered pursuing the procedure abovementioned. Prior to surgery, she should follow up with her PCP (Cardio, ID, IM etc) for clearance. Questions were invited and answered, and the patient wishes to proceed as outlined below. Currently, I am recommendin. Revision T8-Pelvis DECOMPRESSION AND FUSION WITH HARDWARE REVISION THORACOLUMBAR SPINE Description of Procedure: REVISION T8-Pelvis Decompression AND FUSION The patient was seen and examined in the preoperative area. All preoperative protocols were followed. Informed consent was obtained, risks and benefits of the procedure were discussed at length. Risks including bleeding infection damage to the surrounding tissue and risk of reoperation were discussed with the patient. Risk of anesthesia up to and including was discussed with the patient. These are outlined in the risk review. They were willing to accept these risks and all the risks of surgery. The patient was given a weight-based dose of antibiotics in the form of 3 g Ancef. The patient was seen and evaluated by the anesthesia team who deemed them fit for surgery. The site was marked, the patient was willing to proceed with the procedure. The patient was transferred to the operative suite by the Department of anesthesia. They were then drifted off to sleep by the department anesthesia and GETA was performed. The patient tolerated this well. Hart catheter was placed by nursing staff, a-traumatically. Once confirmation of lines and ventilation the patient was transferred to a prone Trios spine table very carefully. The head was secured and stable. Xray confirmed alignment. All bony prominences including wrists, elbows, axilla, chest, hips, and thighs, and feet were padded very well. Special attention was paid to the genitalia, and these were padded accordingly. SCDs were placed on bilateral lower extremities and were connected. Arms were well padded and placed at 90/90 up and out and well padded. Safety strap and tape placed on the patient. Once in position, again we confirmed good ventilation capabilities and that lines were running appropriately. The patients lumbosacral pelvic was then exposed. Hair was removed for incision. 1010s were placed outlining the incision site. Standard alcohol was used to clean the incision site and allowed to dry. C-arm was used to bio-sarah the patient and confirm level for incision which was marked with a skin marker. Operative briefing was performed with all teams and everyone in agreement to proceed. The patient was then prepped and draped in a normal sterile fashion. Timeout was then performed, and all parties agreed with the procedure to be performed. Midline skin incision was then made over the previously bookmarked area and dissection taken down to the lumbosacral fascia which was identified and cleaned with a pardo. Once midline was identified, fasciotomy was made over the SP of T8-pelvis. There was a large fluid collection subfacial that was expressed and was a mix of serous fluid and hematoma from trauma of the hardware failure and screw breakage. Subperiosteal dissection was then taken down over the lamina and facet joints and TPs were exposed and trough made posterolateral. There was exhuberent scar tissue and fluid due to the failure. screws at T10, T11, T12 had backed out on the right and there was screw breakage which accompanied this. On the right there was screw breakage at T11 and T12 with back out of screws from T11-L1. The set screws were then removed from all screw heads and the rods removed. We then removed screws from T10-L1 bilaterally with ease as they were loose and several were broken. When the rods were removed we noted that also L5 and S1 on the right were broken as well as S1 on the left was also a broken tulip head. These were removed. The wound was then debrided extensively and irrigated. TPs were then again decorticated L1-S1 and sacral ala with a high speed ya for lateral fusion. Dissection was taken out over the sacrum to the pelvis. Pelvis scres b/l were stable. We then proceeded level by level as to minimize blood loss, as his bone was bleeding a lot to remove and replace screws. We decided to extend up to T8 as this was a more stable level and we had lost the pedicles at T10 on the left and T12 on the left. Screws were then proceeded to be placed in b/l pedicles with a free hand technique and lateral fluoroscopy. High speed ya was used to make a instructor pilot hole followed by a pedicle finder and feeler. A ball tip probe then confirmed within the pedicle. Screws then measured and placed using lateral fluoroscopy. AP image confirmed safe placement of screws at all levels from T8- S1. We up sized screws at L4, L5 and S1 b/l in length and diameter by one step. The thoracic screws were kept the same diameter but were made 5 mm longer for closer to bicortical locking. The wound was irrigated again and further debridment of bone and soft tissue was done. Dura remained intact and there was no evidence of injury or issues with this. Once debridement was done we moved to screw cementing and terra placement. Screws were cemented through fenestrations from T9-T11 bilaterally. This was done under lateral imaging. There was no extravasation and no myelogram and the patient remained stable through cementation. Attention was then drawn to terra placement and further reduction. Rods were selected, measured, cut and bent to appropriate lordosis. They were then secured into pelvic screws b/l. Sequential reduction then done into each screw and set screw placed. Set screws were then final tightened and lateral image showed good lordosis reduction with increase LL from starting. Once rods were secured, cross links were selected and placed and final tightened. We aimed to have zero reduction on the top 4 screws of which was accomplished. A tension band construct was made above at T7, 8 and 9 with Mersaline tape. A small ya hole was made in each lamina and the tape was woven figure of 8 style through these. It was then secured to a crosslink which was then tensioned and locked into place around T12. The wound was then irrigated with 3L Ancef irrigation, 3L gentamicin irrigation 1L betadine solution and 3L NSS. Surgicel was then placed on the dura, which was inspected and had no injury. Then, in the posterolateral gutter was placed, autograft. This was impacted into position and surgical placed over it. 2g Vanco powder was then placed deep in the wound. Stimulan beads were also placed in the wound. Two deep, subfascial drains were placed and secured with a stitch. We then proceeded with layered closure. #1 PDS placed in the deep fascia followed by a running unidirectional #1 stratafix. 0 Vicryl placed in the deep subq, 0 stratafix was then placed in the superficial subq tissue as well as 2-0 placed in the superficial subq and rocio placed in the skin. The wound edges approximated very well. The wound was then cleaned with ETOH and dressed with Preveena dressing, drain sponges and tegaderms. Drains sewed into position. The patient was then transferred off the [facility] spine table to their hospital bed a-traumatically. Drains continued to hold suction. The patient was then ext ubated and transferred to the PACU in stable condition having tolerated the procedure with no complications.
[2023-05-27] MEDS ORDERED: ALBUTEROL NEBULIZED 2.5 MG/3 ML INHALATION PRN (14:52)
[2023-05-27] MEDS ORDERED: IPRATROPIUM-ALBUTEROL 3 ML NEB INHALATION PRN (14:55)
--- NOTE | 2023-05-27 15:22 | P.PN ---
Subjective Progress Note Date: 05/27/23 Subjective: Patient seen and examined at bedside. No acute events overnight. Pending surgical repair Pertinent positives and negatives as discussed above, a complete review of systems was performed and all other systems are negative. Vitals Signs Reviewed. General: non toxic, no distress, appears at stated age, normal weight Derm: no unusual rashes/lesions, warm Head: atraumatic, normocephalic, symmetric Eyes: EOMI, no lid lag, anicteric sclera, pupils equal round reactive to light ENT: Nose and ears atraumatic Neck: No cervical lymphadenopathy, trachea midline, supple Mouth: no lip lesion, mucus membranes moist Cardiovascular: S1S2 reg, no murmur, positive dorsalis pedis pulse bilateral, no edema Lungs: CTA bilateral, no rhonchi, no rales, no accessory muscle use Abdominal: soft, nontender to palpation, no guarding Ext: muscle strength 5 out of 5 in all 4 extremities grossly, no gross muscle atrophy, no contractures, large postsurgical incision with rocio from thoracic midline spine down to pelvis Neuro: CN II-XI grossly intact, no gross focal neuro deficits Psych: Alert, oriented, appropriate affect Data Reviewed Today: Pertinent Labs: CBC and BMP pending Imaging: No new imaging Assessment and Plan: Active: Status post thoracolumbar decompression and fusion with subsequent hardware displacement and malfunction -Pending surgery -CBC and BMP postsurgery -Pain control and DVT prophylaxis per general surgery Peripheral arterial disease COPD Nicotine dependence Psychotic disorder -continue Symbicort twice daily as needed, albuterol as needed, nicotine patch 14 mg daily, omeprazole 20 daily, Seroquel 100 twice daily, thiamine 100. - hold lasix -holding ASA -Consult regarding smoking cessation Thank you for allowing us to participate in the care of this pleasant patient. Do not hesitate to contact us with questions. Someone can be reached from the [facility] hospitalist group all hours of the day at [phone] or via [employer] serve. Objective - Vital Signs Vital signs: Vital Signs Temp 97.9 F 05/27/23 14:00 Pulse 94 05/27/23 14:15 Resp 16 05/27/23 13:45 BP 113/81 05/27/23 14:15 Pulse Ox 90 L 05/27/23 14:00 FiO2 Intake & Output 05/26/23 05/27/23 05/27/23 18:59 06:59 18:59 Intake Total 3312 Output Total 1200 Balance 2112 Weight 95.254 kg 95.254 kg Intake: IV 3002 Blood Product 310 Rc As-1 Unit 310 [id number] Output: Urine 450 Estimated Blood Loss 750 Other: Voiding Method Indwelling Catheter # Voids 2 - Labs CBC & Chem 7: 05/26/23 11:46 05/26/23 11:46 Labs: Abnormal Lab Results - Last 24 Hours (Table) 05/27/23 Range/Units 09:43 Crossmatch See Detail
[2023-05-27 16:43] LABS: Anisocytosis Moderate; Basophils # (A) 0.1 k/uL (0-0.2); Basophils % (A) 1 %; Eosinophils # (A) 0.1 k/uL (0-0.7); Eosinophils % (A) 1 %; HCT 31.6 % (39.0-53.0); HGB 9.8 gm/dL (13.0-17.5); Hypochromasia Marked; Lymphocytes # (A) 0.9 k/uL (1.0-4.8); Lymphocytes % (A) 10 %; MCH 26.8 pg (25.0-35.0); MCHC 30.9 g/dL (31.0-37.0); MCV 86.7 fL (80.0-100.0); Mean Platelet Volume 7.4; Microcytosis Slight; Monocytes # (A) 0.6 k/uL (0-1.0); Monocytes % (A) 6 %; Neutrophils # (A) 6.9 k/uL (1.3-7.7); Neutrophils % (A) 80 %; Platelet Count 541 k/uL (150-450); Poikilocytosis Slight; RBC 3.65 m/uL (4.30-5.90); RDW 21.1 % (11.5-15.5); WBC 8.7 k/uL (3.8-10.6)
[2023-05-27] MEDS: CYCLOBENZAPRINE 10 MG TAB PO PRN (16:54)
[2023-05-27 16:57] LABS: African American GFR (CKD) >90 (>60 ml/min/1.73 sqM); Anion Gap 7 mmol/L; Blood Urea Nitrogen 12 mg/dL (9-20); Calcium 8.2 mg/dL (8.4-10.2); Carbon Dioxide 21 mmol/L (22-30); Chloride 107 mmol/L (98-107); Glucose 107 mg/dL (74-99); Non-African American GFR(CKD) >90 (>60 ml/min/1.73 sqM); Potassium 4.7 mmol/L (3.5-5.1); Sodium 135 mmol/L (137-145)
[2023-05-27] MEDS: HYDROmorphone 1 MG/ML 1 ML SYRINGE IVP PRN (19:07)
[2023-05-27] MEDS: FERROUS SULFATE 325 MG TAB PO SCH (21:09)
[2023-05-27] MEDS: SENNOSIDES-DOCUSATE SODIUM 1 EACH TAB PO SCH (21:09)
[2023-05-27] MEDS: THIAMINE 100 MG TAB PO SCH (21:10)
[2023-05-28] MEDS: PANTOPRAZOLE 40 MG TABLET PO SCH (07:13)
[2023-05-28 07:32] LABS: Anisocytosis Moderate; Basophils # (A) 0.1 k/uL (0-0.2); Basophils % (A) 1 %; Eosinophils # (A) 0.1 k/uL (0-0.7); Eosinophils % (A) 2 %; HCT 34.9 % (39.0-53.0); HGB 10.8 gm/dL (13.0-17.5); Hypochromasia Marked; Lymphocytes # (A) 0.9 k/uL (1.0-4.8); Lymphocytes % (A) 11 %; MCH 26.4 pg (25.0-35.0); MCV 85.4 fL (80.0-100.0); Mean Platelet Volume 7.3; Microcytosis Slight; Monocytes # (A) 0.6 k/uL (0-1.0); Monocytes % (A) 7 %; Neutrophils # (A) 6.5 k/uL (1.3-7.7); Neutrophils % (A) 77 %; Platelet Count 571 k/uL (150-450); Poikilocytosis Slight; RBC 4.09 m/uL (4.30-5.90); RDW 20.9 % (11.5-15.5); WBC 8.5 k/uL (3.8-10.6)
[2023-05-28 07:58] LABS: ALT 18 U/L (4-49); AST 46 U/L (17-59); African American GFR (CKD) >90 (>60 ml/min/1.73 sqM); Albumin/Globulin Ratio 1.1; Alkaline Phosphatase 182 U/L (38-126); Anion Gap 6 mmol/L; Blood Urea Nitrogen 7 mg/dL (9-20); Calcium 8.5 mg/dL (8.4-10.2); Carbon Dioxide 24 mmol/L (22-30); Chloride 106 mmol/L (98-107); Globulin 2.8 g/dL; Glucose 115 mg/dL (74-99); Non-African American GFR(CKD) >90 (>60 ml/min/1.73 sqM); Potassium 4.5 mmol/L (3.5-5.1); Sodium 136 mmol/L (137-145); Total Bilirubin 0.8 mg/dL (0.2-1.3); Total Protein 5.8 g/dL (6.3-8.2)
[2023-05-28] MEDS: NICOTINE 14MG/24HR PATCH TRANSDERM SCH (08:22)
[2023-05-28] MEDS: polyethylene glycoL 3350 17 GM POWD.PACK PO SCH (08:24)
--- NOTE | 2023-05-28 09:56 | P.PN ---
Subjective Progress Note Date: 05/28/23 Principal diagnosis: Status post revision [id number] decompression and fusion Patient was evaluated today at bedside, he is resting in his hospital bed. Patient does admit to some postoperative pain in his back but overall tolerable. Wound VAC and Hemovac are in good position and condition. Patient has not been out of bed at this time. Denies any loss of bowel or bladder function. Patient has been moving his legs while in bed. Denies headaches, lightheadedness, chest pain and shortness of breath Objective - Vital Signs Vital signs: Vital Signs Temp 97.6 F 05/28/23 02:00 Pulse 83 05/28/23 02:00 Resp 18 05/28/23 02:00 BP 112/57 05/28/23 02:00 Pulse Ox 95 05/28/23 02:00 FiO2 Intake & Output 05/27/23 05/28/23 05/28/23 18:59 06:59 18:59 Intake Total 3312 1310 Output Total 1300 1954 Balance 2011 Intake: IV 3002 Oral 950 Blood Product 310 310 Rc As-1 Unit 0 310 [id number] Rc As-1 Unit 310 [id number] Other 50 Rc As-1 Unit 50 [id number] Output: Drainage 100 350 Back 100 350 Urine 450 1600 Uretheral (Hart) 600 Urine/Stool Mix 4 Estimated Blood Loss 750 Other: Voiding Method Indwelling Catheter Indwelling Catheter Indwelling Catheter # Voids 4 - Exam Gen: AOx3, NAD VSS stable at this time Integument: Wound VAC remains in good position and condition, dressing was changed surrounding drain Palpation: Mild tenderness with palpation to the thoracic and lumbar spine ROM: Full range of motion in all major muscle groups of the bilateral upper and lower extremities, no focal deficits appreciated Sensory Exam: Senory exam to light touch is intact C5-T1 Senosry exam to light touch is intact L2-S1 Motor: 5/5 strength appreciated in the bilateral upper extremities with shoulder elevation, shoulder abduction, elbow extension, elbow flexion, wrist extension, wrist flexion 4/5 strength appreciated bilateral lower extremities with hip flexion, knee extension, knee flexion, plantarflexion, dorsiflexion, EHL, FHL Reflexes: 2/4 in all UE and LE Negative Ramiro's, Babinski, clonus bilaterally - Labs CBC & Chem 7: 05/28/23 07:02 05/28/23 07:02 Labs: Abnormal Lab Results - Last 24 Hours (Table) 05/27/23 05/27/23 05/27/23 Range/Units 09:43 15:56 15:56 RBC 3.65 L (4.30-5.90) m/uL Hgb 9.8 L (13.0-17.5) gm/dL Hct 31.6 L (39.0-53.0) % MCHC 30.9 L (31.0-37.0) g/dL RDW 21.1 H (11.5-15.5) % Plt Count 541 H (150-450) k/uL Lymphocytes # 0.9 L (1.0-4.8) k/uL Sodium 135 L (137-145) mmol/L Carbon Dioxide 21 L (22-30) mmol/L BUN (9-20) mg/dL Creatinine 0.55 L (0.66-1.25) mg/dL Glucose 107 H (74-99) mg/dL Calcium 8.2 L (8.4-10.2) mg/dL Alkaline Phosphatase (38-126) U/L Total Protein (6.3-8.2) g/dL Albumin (3.5-5.0) g/dL Crossmatch See Detail 05/28/23 05/28/23 Range/Units 07:02 07:02 RBC 4.09 L (4.30-5.90) m/uL Hgb 10.8 L (13.0-17.5) gm/dL Hct 34.9 L (39.0-53.0) % MCHC (31.0-37.0) g/dL RDW 20.9 H (11.5-15.5) % Plt Count 571 H (150-450) k/uL Lymphocytes # 0.9 L (1.0-4.8) k/uL Sodium 136 L (137-145) mmol/L Carbon Dioxide (22-30) mmol/L BUN 7 L (9-20) mg/dL Creatinine 0.55 L (0.66-1.25) mg/dL Glucose 115 H (74-99) mg/dL Calcium (8.4-10.2) mg/dL Alkaline Phosphatase 182 H (38-126) U/L Total Protein 5.8 L (6.3-8.2) g/dL Albumin 3.0 L (3.5-5.0) g/dL Crossmatch Assessment and Plan Assessment: Postoperative day #1 status post revision [id number] decompression and fusion Hardware failure [id number] Other medical comorbidities Plan: Pain control, continue with current medications. Advised patient he is taking a lot of IV pain medication at this time, he will try to decrease this. Made him aware that he needs to try to increase his oral intake DVT prophylaxis, okay to begin heparin 5000 units every 12 later today Monitor surgical dressing and wound VAC Hemoglobin remained stable at this time, continue to monitor Weight-bear as tolerated, no bending, twisting or lifting. Patient has LSO brace at bedside. He needs to be on this when ambulating Out of bed for all meals Encourage incentive spirometer Medical recommendations appreciated PT/OT Continue to follow during hospital stay Time with Patient: Less than 30
--- NOTE | 2023-05-28 11:41 | P.PN ---
Subjective Progress Note Date: 05/28/23 Subjective: Patient seen and examined at bedside. No acute events overnight. Complaining of significant back pain. Has not gotten out of the bed yet. Has been able to eat and drink okay. Hart catheter in place. Pertinent positives and negatives as discussed above, a complete review of systems was performed and all other systems are negative. Vitals Signs Reviewed. General: non toxic, no distress, appears at stated age, normal weight Derm: no unusual rashes/lesions, warm, back dressing clean, dry, intact, Hemovac in place. Head: atraumatic, normocephalic, symmetric Eyes: EOMI, no lid lag, anicteric sclera, pupils equal round reactive to light ENT: Nose and ears atraumatic Neck: No cervical lymphadenopathy, trachea midline, supple Mouth: no lip lesion, mucus membranes moist Cardiovascular: S1S2 reg, no murmur, positive dorsalis pedis pulse bilateral, no edema Lungs: CTA bilateral, no rhonchi, no rales, no accessory muscle use Abdominal: soft, nontender to palpation, no guarding Ext: muscle strength 5 out of 5 in all 4 extremities grossly, no gross muscle atrophy, no contractures Neuro: CN II-XI grossly intact, no gross focal neuro deficits Psych: Alert, oriented, appropriate affect Data Reviewed Today: Pertinent Labs: Hemoglobin 10.8, platelet 571, creatinine 0.55 Imaging: No new imaging Assessment and Plan: Active: Status post thoracolumbar decompression and fusion with subsequent hardware displacement and malfunction Status post repair Acute blood loss anemia, status post 2 units of PRBCs, anticipated outcome of surgery -Orthopedics note reviewed, continue current management Hemoglobin stable -Pain control and DVT prophylaxis per general surgery Peripheral arterial disease COPD Nicotine dependence Psychotic disorder -continue Symbicort twice daily as needed, albuterol as needed, nicotine patch 14 mg daily, omeprazole 20 daily, Seroquel 100 twice daily, thiamine 100. - hold lasix -holding ASA -Consult regarding smoking cessation Thank you for allowing us to participate in the care of this pleasant patient. Do not hesitate to contact us with questions. Someone can be reached from the [facility] hospitalist group all hours of the day at [phone] or via perfect serve. Objective - Vital Signs Vital signs: Vital Signs Temp 97.7 F 05/28/23 07:00 Pulse 74 05/28/23 07:00 Resp 18 05/28/23 07:00 BP 127/77 05/28/23 07:00 Pulse Ox 96 05/28/23 07:00 FiO2 Intake & Output 05/27/23 05/28/23 05/28/23 18:59 06:59 18:59 Intake Total 3312 1310 Output Total 1300 1954 1100 Balance 20114 1100 Intake: IV 3002 Oral 950 Blood Product 310 310 Rc As-1 Unit 0 310 [id number] Rc As-1 Unit 310 [id number] Other 50 Rc As-1 Unit 50 [id number] Output: Drainage 100 350 Back 100 350 Urine 450 1600 1100 Uretheral (Hart) 600 1100 Urine/Stool Mix 4 Estimated Blood Loss 750 Other: Voiding Method Indwelling Catheter Indwelling Catheter Indwelling Catheter # Voids 4 - Labs CBC & Chem 7: 05/28/23 07:02 05/28/23 07:02 Labs: Abnormal Lab Results - Last 24 Hours (Table) 05/27/23 05/27/23 05/27/23 Range/Units 09:43 15:56 15:56 RBC 3.65 L (4.30-5.90) m/uL Hgb 9.8 L (13.0-17.5) gm/dL Hct 31.6 L (39.0-53.0) % MCHC 30.9 L (31.0-37.0) g/dL RDW 21.1 H (11.5-15.5) % Plt Count 541 H (150-450) k/uL Lymphocytes # 0.9 L (1.0-4.8) k/uL Sodium 135 L (137-145) mmol/L Carbon Dioxide 21 L (22-30) mmol/L BUN (9-20) mg/dL Creatinine 0.55 L (0.66-1.25) mg/dL Glucose 107 H (74-99) mg/dL Calcium 8.2 L (8.4-10.2) mg/dL Alkaline Phosphatase (38-126) U/L Total Protein (6.3-8.2) g/dL Albumin (3.5-5.0) g/dL Crossmatch See Detail 05/28/23 05/28/23 Range/Units 07:02 07:02 RBC 4.09 L (4.30-5.90) m/uL Hgb 10.8 L (13.0-17.5) gm/dL Hct 34.9 L (39.0-53.0) % MCHC (31.0-37.0) g/dL RDW 20.9 H (11.5-15.5) % Plt Count 571 H (150-450) k/uL Lymphocytes # 0.9 L (1.0-4.8) k/uL Sodium 136 L (137-145) mmol/L Carbon Dioxide (22-30) mmol/L BUN 7 L (9-20) mg/dL Creatinine 0.55 L (0.66-1.25) mg/dL Glucose 115 H (74-99) mg/dL Calcium (8.4-10.2) mg/dL Alkaline Phosphatase 182 H (38-126) U/L Total Protein 5.8 L (6.3-8.2) g/dL Albumin 3.0 L (3.5-5.0) g/dL Crossmatch
--- NOTE | 2023-05-28 14:06 | CT ---
EXAMINATION TYPE: CT thor lumbar spine wo con CT DLP: 2780 mGycm, Automated exposure control for dose reduction was used. DATE OF EXAM: 05/28/2023 1:57 PM CLINICAL INDICATION:Male, 67 years old with history of s/p [id number] decomp and fusion; lUMBAR HARDW ARE FAILURE, BACK PAIN COMPARISON: 05/26/2023 TECHNIQUE: Axial images of the thoracic and lumbar spine were obtained without contrast. Coronal and sagittal reformats were performed. CT Contrast: Contrast used: mL of , none. Oral contrast used: none. FINDINGS: Interval postsurgical fixation changes, now appropriate placement of the fixation hardware in the upp er spine compared to prior on 05/26/2023. There is now vertebroplasty cement extending from T9 through T12 with new fixation screw in the T8 vertebral body. Hardware appears in appropriate position. No evidence of fracture. No significant spinal canal neural foraminal stenosis visualized. There is skin rocio present with drainage catheter tubing in the harper rgical bed. Discectomy changes remain at L2-L3 through L5-S1. The remainder of the exam in the abdome n thorax is unchanged from prior. IMPRESSION: Interval fixation changes to the spine with improved alignment of the fixation bars in the upper spin e with new T8 vertebral body level. Hardware appears in appropriate position.
[2023-05-28] MEDS: HEPARIN SODIUM,PORCINE 5,000 UNIT/ML 1 ML VIAL SQ SCH (20:34)
--- NOTE | 2023-05-29 10:30 | P.PN ---
Subjective Progress Note Date: 05/29/23 Principal diagnosis: Status post revision [id number] decompression and fusion Patient was evaluated today at bedside, he is resting in his hospital bed. Patient does admit to some postoperative pain in his back but overall tolerable. Wound VAC and Hemovac are in good position and condition. Urinary catheter has been removed, patient states he has been up to the bathroom on a few different occasion utilizing the walker. Denies headaches, lightheadedness, chest pain and shortness of breath Objective - Vital Signs Vital signs: Vital Signs Temp 99.0 F 05/29/23 07:00 Pulse 69 05/29/23 07:00 Resp 17 05/29/23 07:00 BP 118/75 05/29/23 07:00 Pulse Ox 93 L 05/29/23 07:55 FiO2 Intake & Output 05/28/23 05/29/23 05/29/23 18:59 06:59 18:59 Intake Total 600 Output Total 1760 550 Balance -1760 50 Intake: Oral 600 Output: Drainage 160 150 Back 160 150 Urine 1600 400 Uretheral (Hart) 1600 Other: Voiding Method Indwelling Catheter Urinal # Voids 1 3 - Exam Gen: AOx3, NAD VSS stable at this time Integument: Wound VAC remains in good position and condition, dressing was changed surrounding drain Palpation: Mild tenderness with palpation to the thoracic and lumbar spine ROM: Full range of motion in all major muscle groups of the bilateral upper and lower extremities, no focal deficits appreciated Sensory Exam: Senory exam to light touch is intact C5-T1 Senosry exam to light touch is intact L2-S1 Motor: 5/5 strength appreciated in the bilateral upper extremities with shoulder elevation, shoulder abduction, elbow extension, elbow flexion, wrist extension, wrist flexion 4/5 strength appreciated bilateral lower extremities with hip flexion, knee extension, knee flexion, plantarflexion, dorsiflexion, EHL, FHL Reflexes: 2/4 in all UE and LE Negative Ramiro's, Babinski, clonus bilaterally - Labs CBC & Chem 7: 05/28/23 07:02 05/28/23 07:02 Assessment and Plan Assessment: Postoperative day #2 status post revision [id number] decompression and fusion Hardware failure [id number] Other medical comorbidities Plan: Pain control, continue with current medications. Advised patient he is taking a lot of IV pain medication at this time, he will try to decrease this. Made him aware that he needs to try to increase his oral intake DVT prophylaxis, okay to begin heparin 5000 units every 12 later today Monitor surgical dressing and wound VAC. Hopeful removal of Hemovac drain on 05/30/2023 Hemoglobin remained stable at this time, continue to monitor Weight-bear as tolerated, no bending, twisting or lifting. Patient has LSO brace at bedside. Out of bed for all meals Encourage incentive spirometer Medical recommendations appreciated PT/OT Continue to follow during hospital stay Time with Patient: Less than 30
--- NOTE | 2023-05-29 11:14 | P.PN ---
Subjective Progress Note Date: 05/29/23 Subjective: Patient seen and examined at bedside. No acute events overnight. Still continues to have significant back pain. Hart catheter discontinued. Urinating well. Hemovac still in place. Pertinent positives and negatives as discussed above, a complete review of systems was performed and all other systems are negative. Vitals Signs Reviewed. General: non toxic, no distress, appears at stated age, normal weight Derm: no unusual rashes/lesions, warm, back dressing clean, dry, intact, Hemovac in place. Head: atraumatic, normocephalic, symmetric Eyes: EOMI, no lid lag, anicteric sclera ENT: Nose and ears atraumatic Mouth: no lip lesion, mucus membranes moist Cardiovascular: S1S2 reg, no murmur, no edema Lungs: CTA bilateral, no rhonchi, no rales, no accessory muscle use Abdominal: soft, nontender to palpation, no guarding Ext: muscle strength 5 out of 5 in all 4 extremities grossly, no gross muscle atrophy, no contractures Neuro: CN II-XI grossly intact, no gross focal neuro deficits Psych: Alert, oriented, appropriate affect Data Reviewed Today: Pertinent Labs: No new labs Imaging: No new imaging Assessment and Plan: Active: Status post thoracolumbar decompression and fusion with subsequent hardware displacement and malfunction Status post revision Acute blood loss anemia, status post 2 units of PRBCs, anticipated outcome of surgery -Orthopedics note reviewed, continue current management Hemoglobin stable -Pain control, bowel regimen and DVT prophylaxis per general surgery PT was consulted Peripheral arterial disease COPD Nicotine dependence Psychotic disorder -continue Symbicort twice daily as needed, albuterol as needed, nicotine patch 14 mg daily, omeprazole 20 daily, Seroquel 100 twice daily, thiamine 100. - hold lasix -holding ASA -Also hold regarding smoking cessation Thank you for allowing us to participate in the care of this pleasant patient. Do not hesitate to contact us with questions. Someone can be reached from the [facility] hospitalist group all hours of the day at [phone] or via perfect serve. Objective - Vital Signs Vital signs: Vital Signs Temp 99.0 F 05/29/23 07:00 Pulse 69 05/29/23 07:00 Resp 17 05/29/23 07:00 BP 118/75 05/29/23 07:00 Pulse Ox 93 L 05/29/23 07:55 FiO2 Intake & Output 05/28/23 05/29/23 05/29/23 18:59 06:59 18:59 Intake Total 600 Output Total 1760 550 Balance -1760 50 Intake: Oral 600 Output: Drainage 160 150 Back 160 150 Urine 1600 400 Uretheral (Hart) 1600 Other: Voiding Method Indwelling Catheter Urinal # Voids 1 3 - Labs CBC & Chem 7: 05/28/23 07:02 05/28/23 07:02
[2023-05-30] MEDS ORDERED: HYDROmorphone 1 MG/ML 1 ML SYRINGE IVP PRN (09:44)
--- NOTE | 2023-05-30 09:44 | P.PN ---
Subjective Progress Note Date: 05/30/23 Principal diagnosis: Catastrophic hardware failure 2 weeks status post T10 to pelvis decompression and fusion Low back pain Patient seen and examined this morning. Patient is sitting up in chair at bedside. He reports that he has ambulated in hallway with physical therapy and tolerated activity well. Patient does state he has increased back pain that he reports is managed on current regimen. Surgical incision into the thoracolumbar spine, wound VAC is present and patent. Hemovac is also present to the right of the incision with 100 mL output overnight. Patient denies any numbness or tingling to the bilateral lower extremities. Continue to encourage patient to work with physical therapy and use incentive spirometer. No acute concerns at this time. Objective - Vital Signs Vital signs: Vital Signs Temp 97.7 F 05/29/23 20:16 Pulse 89 05/30/23 02:56 Resp 13 05/29/23 20:16 BP 124/82 05/30/23 02:56 Pulse Ox 93 L 05/30/23 02:56 FiO2 Intake & Output 05/29/23 05/30/23 05/30/23 18:59 06:59 18:59 Output Total 100 100 Balance -100 -100 Output: Drainage 100 100 Back 100 100 Other: Voiding Method Urinal Toilet Urinal # Voids 5 3 # Bowel Movements 2 2 - Exam Physical Examination General: The patient is awake and alert, in no acute distress Skin: Skin is warm and dry with no obvious rashes or lesions. Surgical incision to the thoracolumbar spine, wound VAC is present and patent. Hemovac drain is present to the right of the incision with 100 mL output overnight. Eye: Pupils are equal, round and reactive to light, extra-ocular movements are intact; there is normal conjunctiva bilaterally. Neck: The neck is supple, there is no tenderness and ROM intact. Cardiovascular: There is a regular rate and rhythm. No murmur, rub or gallop is appreciated. Respiratory: Lungs are clear to auscultation, respirations are non-labored, breath sounds are equal. Gastrointestinal: Soft, non-distended, non-tender abdomen. Back: There is no tenderness to palpation in the midline, paralumbar, parathoracic or buttocks region. There is no obvious deformity . Musculoskeletal: ROM limited secondary to pain and stiffness from surgical procedure. Muscle strength in all major muscle groups of bilateral upper extremities 5/5, bilateral lower extremities 5/5. Neurological: CN 2-12 intact. There are no obvious motor or sensory deficits. Movement and coordination equal and intact. Sensory exam to light touch intact C5-T1 and intact from L2-S1. Reflexes 2/4 in bilateral upper and lower extremi ties. Negative Hoffmans, babinski, and clonus signs. Psychiatric: Cooperative, appropriate mood & affect, normal judgment. - Labs CBC & Chem 7: 05/28/23 07:02 05/28/23 07:02 Assessment and Plan Assessment: Postop day 3: Revision [id number] decompression and fusion Catastrophic hardware failure 2 weeks status post T10 to pelvis decompression and fusion Low back pain Plan: -Appreciate bridal sales consultant and team management. -Activity: Ambulate QID, OOB all meals, up and about, limit lifting bending t wisting to less than 5 lbs. Use walker or cane if needed for stability. -Daily PT/OT, increase ambulation strength and balance. -Brace when up and about, not needed in bed or chair -Pain control: Adequate at this time -Meds: reviewed -GI ppx: senna, Miralax -DVT PPX: Heparin -Hygiene: Shower today. Maintain dressing clean and dry. Meticulous cleaning after BMs away from the incision site -Drains: Maintain for now. Continue to monitor and record output q shift. -Encourage IS 10x/hr -Dispo: Clinically pending *I reviewed and discussed this case with my attending Dr. Yao, whom has reviewed this chart and films and is in agreement with assessment and plan of care as outlined above. I have personally seen and examined the patient, performed the documentation and the assessment and plan as written. Number of minutes spent on the visit: 20m.
[2023-05-30] MEDS: HYDROmorphone 0.5 MG/0.5 ML SYRINGE IVP PRN (11:06)
[2023-05-30] MEDS: CYCLOBENZAPRINE 10 MG TAB PO SCH (11:07)
--- NOTE | 2023-05-30 11:43 | P.PN ---
Subjective Progress Note Date: 05/30/23 Subjective: Patient seen and examined at bedside. No acute events overnight. Still continues to have significant back pain, but improving. Patient able to ambulate. Hemovac still in place. Pertinent positives and negatives as discussed above, a complete review of systems was performed and all other systems are negative. Vitals Signs Reviewed. General: non toxic, no distress, appears at stated age, normal weight Derm: no unusual rashes/lesions, warm, back dressing clean, dry, intact, Hemovac in place. Head: atraumatic, normocephalic, symmetric Eyes: EOMI, no lid lag, anicteric sclera ENT: Nose and ears atraumatic Mouth: no lip lesion, mucus membranes moist Cardiovascular: S1S2 reg, no murmur, no edema Lungs: CTA bilateral, no rhonchi, no rales, no accessory muscle use Abdominal: soft, nontender to palpation, no guarding Ext: muscle strength 5 out of 5 in all 4 extremities grossly, no gross muscle atrophy, no contractures Neuro: CN II-XI grossly intact, no gross focal neuro deficits Psych: Alert, oriented, appropriate affect Data Reviewed Today: Pertinent Labs: No new labs Imaging: No new imaging Assessment and Plan: Active: Recent Thoracolumbar decompression and fusion with subsequent hardware displacement and malfunction Status post revision Acute blood loss anemia, status post 2 units of PRBCs, anticipated outcome of surgery -Orthopedics note reviewed, continue current management Hemoglobin stable Pain control, bowel regimen and DVT prophylaxis per general surgery PT recommending subacute rehab Peripheral arterial disease? COPD Nicotine dependence Psychotic disorder -continue Symbicort twice daily as needed, albuterol as needed, nicotine patch 14 mg daily, omeprazole 20 daily, Seroquel 100 twice daily, thiamine 100. - hold lasix, patient is euvolemic -holding ASA, restart when okay per orthopedic surgery -Counseled regarding smoking cessation Thank you for allowing us to participate in the care of this pleasant patient. Do not hesitate to contact us with questions. Someone can be reached from the [facility] hospitalist group all hours of the day at [phone] or via perfect serve. Objective - Vital Signs Vital signs: Vital Signs Temp 98.4 F 05/30/23 07:00 Pulse 61 05/30/23 07:00 Resp 19 05/30/23 07:00 BP 114/76 05/30/23 07:00 Pulse Ox 92 L 05/30/23 07:00 FiO2 Intake & Output 05/29/23 05/30/23 05/30/23 18:59 06:59 18:59 Output Total 100 100 Balance -100 -100 Output: Drainage 100 100 Back 100 100 Other: Voiding Method Urinal Toilet Urinal # Voids 5 3 # Bowel Movements 2 2 - Labs CBC & Chem 7: 05/28/23 07:02 05/28/23 07:02
[2023-05-31 08:40] VITALS: BP 151/91; PULSE 81; RESP 18; TEMP 97.4
--- NOTE | 2023-05-31 09:35 | P.PN ---
Subjective Progress Note Date: 05/31/23 Principal diagnosis: Catastrophic hardware failure 2 weeks status post T10 to pelvis decompression and fusion Low back pain Patient seen and examined this morning. Patient is sitting up in chair at bedside. Surgical incision to the thoracolumbar spine, wound VAC and Hemovac have been discontinued. Surgical incision edges are well approximated with rocio intact. No active drainage, new surgical dressing applied. Patient denies any numbness or tingling to the bilateral lower extremities. Continue to encourage patient to work with physical therapy and use incentive spirometer. No acute concerns at this time. Patient is cleared from an Orthopedic standpoint for discharge back to facility. Objective - Vital Signs Vital signs: Vital Signs Temp 97.4 F L 05/31/23 07:00 Pulse 81 05/31/23 07:00 Resp 18 05/31/23 07:00 BP 151/91 05/31/23 07:00 Pulse Ox 94 L 05/31/23 07:00 FiO2 Intake & Output 05/30/23 05/31/23 05/31/23 18:59 06:59 18:59 Output Total 90 Balance -90 Output: Drainage 90 Back 90 Other: Voiding Method Toilet Urinal # Voids 4 4 # Bowel Movements 1 3 - Exam Physical Examination General: The patient is awake and alert, in no acute distress Skin: Skin is warm and dry with no obvious rashes or lesions. Surgical incision to the thoracolumbar spine, edges are well approximated with rocio intact. No active drainage. Wound VAC and Hemovac have been discontinued and new surgical dressing applied. Eye: Pupils are equal, round and reactive to light, extra-ocular movements are intact; there is normal conjunctiva bilaterally. Neck: The neck is supple, there is no tenderness and ROM intact. Cardiovascular: There is a regular rate and rhythm. No murmur, rub or gallop is appreciated. Respiratory: Lungs are clear to auscultation, respirations are non-labored, breath sounds are equal. Gastrointestinal: Soft, non-distended, non-tender abdomen. Back: There is no tenderness to palpation in the midline, paralumbar, parathoracic or buttocks region. There is no obvious deformity . Musculoskeletal: ROM limited secondary to pain and stiffness from surgical procedure. Muscle strength in all major muscle groups of bilateral upper extremities 5/5, bilateral lower extremities 4/5. Neurological: CN 2-12 intact. There are no obvious motor or sensory deficits. Movement and coordination equal and intact. Sensory exam to light touch intact C5-T1 and intact from L2-S1. Reflexes 2/4 in bilateral upper and lower extremities. Negative Hoffmans, babinski, and clonus signs. Psychiatric: Cooperative, appropriate mood & affect, normal judgment. - Labs CBC & Chem 7: 05/28/23 07:02 05/28/23 07:02 Assessment and Plan Assessment: Postop day 4: Revision [id number] decompression and fusion Catastrophic hardware failure 2 weeks status post T10 to pelvis decompression and fusion Low back pain Plan: -Appreciate operations consultant and team management. -Activity: Ambulate QID, OOB all meals, up and about, limit lifting bending twisting to less than 5 lbs. Use walker or cane if needed for stability. -Daily PT/OT, increase ambulation strength and balance. -Brace when up and about, not needed in bed or chair -Pain control: Adequate at this time -Meds: reviewed -GI ppx: senna, Miralax -DVT PPX: Heparin -Hygiene: Shower today. Maintain dressing clean and dry. Meticulous cleaning after BMs away from the incision site -Drains: Maintain for now. Continue to monitor and record output q shift. -Encourage IS 10x/hr -Dispo: Patient is cleared from orthopedic standpoint for discharge back to subacute rehab *I reviewed and discussed this case with my attending Dr. Yao, whom has reviewed this chart and films and is in agreement with assessment and plan of care as outlined above. I have personally seen and examined the patient, performed the documentation and the assessment and plan as written. Number of minutes spent on the visit: 20m.
--- NOTE | 2023-05-31 09:45 | P.DS ---
Providers Date of admission: 05/30/23 08:31 Expected date of discharge: 05/31/23 Attending physician: Jluis Yao DO Consults: 05/26/23 11:22 Consult Physician Routine Consulting Provider: Lissa Bustillo Consult Reason/Comments: Medical management Do you want consulting provider notified?: Yes Primary care physician: [facility] Course: Hospital Course: The patient was evaluated preoperatively and found to have the diagnosis of lumbar hardware failure. They underwent appropriate preoperative care and were willing to undergo the intended procedure. They underwent a successful revision [id number] decompression and fusion, were recovered appropriately and sent to the floor. While on the floor they worked with physical therapy, occupational therapy and nursing to enhance their recovery experience. Their pain was well controlled through their stay and they were started on appropriate medications, DVT ppx modalities, activity and dietary needs. Daily labs were monitored closely, and transfusions were only used when necessary. Medicine as well as other consulting services have made their input and have helped with our team approach and multidisciplinary care. PT milestones have been met and passed and they have made the recommendation of subacute rehab for this patient and treating providers agree with this care path. The patient will be discharged home with appropriate medications, instructions and follow-up information and in stable condition. Patient Condition at Discharge: Fair Plan - Discharge Summary Discharge Rx Participant: No New Discharge Prescriptions: New Sennosides/Docusate Sodium [Senna Plus 8.6-50 mg Tablet] 1 each PO DAILY PRN #20 tablet PRN Reason: Constipation cefaDROXiL [Duricef] 500 mg PO Q12HR #10 cap Cyclobenzaprine [Flexeril] 10 mg PO TID #90 tablet Gabapentin 300 mg PO TID #90 cap oxyCODONE-APAP 10-325MG [Percocet 10-325 mg] 1 tab PO Q4HR PRN #42 tab PRN Reason: Pain No Action Thiamine [Vitamin B-1] 100 mg PO BID QUEtiapine FUMARATE [QUEtiapine FUMARATE ER] 100 mg PO BID Omeprazole [PriLOSEC] 20 mg PO DAILY Aspirin EC [Ecotrin Low Dose] 81 mg PO DAILY 90 Days #90 tab Docusate [Colace] 100 mg PO BID PRN cap PRN Reason: Constipation Cyclobenzaprine [Flexeril] 5 mg PO TID PRN tab PRN Reason: Muscle Spasm Mag Hydrox/Al Hydrox/Simeth [Maalox] 30 ml PO Q4HR PRN ml PRN Reason: Indigestion Nicotine 14Mg/24Hr Patch [Habitrol 14Mg/24Hr Patch] 1 patch TRANSDERM DAILY Nicotine 7Mg/24Hr Patch [Habitrol] 1 patch TRANSDERM DIRECTED oxyCODONE-APAP 10-325MG [Percocet 10-325 mg] 1 tab PO Q4HR PRN PRN Reason: Pain 6-10 Budesonide/Formoterol Fumarate [Symbicort 160-4.5 Mcg Inhaler] 2 puff INHALATION RT-BID PRN PRN Reason: Shortness Of Breath Albuterol Inhaler [Ventolin Hfa Inhaler] 2 puff INHALATION RT-Q4H PRN PRN Reason: Shortness Of Breath Amoxic-Pot Clav 875-125Mg [Augmentin 875-125] 1 tab PO Q12HR 4 Days #8 tab Ipratropium-Albuterol Nebulize [Duoneb 0.5 mg-3 mg/3 ml Soln] 3 ml INHALATION RT-Q2H PRN each PRN Reason: Shortness Of Breath Or Wheezing Furosemide [Lasix] 40 mg PO BID 7 Days #14 tablet polyethylene glycoL 3350 [Miralax] 17 gm PO DAILY PRN packet PRN Reason: Constipation Ferrous Sulfate [Iron (65 MG Elemental)] 325 mg PO BID Gabapentin 300 mg PO Q8H Sennosides-Docusate Sodium [Senokot-S] 2 tab PO DAILY PRN PRN Reason: Constipation Discharge Medication List Omeprazole [PriLOSEC] 20 mg PO DAILY 01/13/22 [History] QUEtiapine FUMARATE [QUEtiapine FUMARATE ER] 100 mg PO BID 01/13/22 [History] Thiamine [Vitamin B-1] 100 mg PO BID 01/13/22 [History] Aspirin EC [Ecotrin Low Dose] 81 mg PO DAILY 90 Days #90 tab 01/15/22 [Rx] Albuterol Inhaler [Ventolin Hfa Inhaler] 2 puff INHALATION RT-Q4H PRN 01/24/23 [History] Budesonide/Formoterol Fumarate [Symbicort 160-4.5 Mcg Inhaler] 2 puff INHALATION RT-BID PRN 01/24/23 [History] Amoxic-Pot Clav 875-125Mg [Augmentin 875-125] 1 tab PO Q12HR 4 Days #8 tab 05/17/23 [Rx] Cyclobenzaprine [Flexeril] 5 mg PO TID PRN tab 05/17/23 [Rx] Docusate [Colace] 100 mg PO BID PRN cap 05/17/23 [Rx] Furosemide [Lasix] 40 mg PO BID 7 Days #14 tablet 05/17/23 [Rx] Ipratropium-Albuterol Nebulize [Duoneb 0.5 mg-3 mg/3 ml Soln] 3 ml INHALATION RT-Q2H PRN each 05/17/23 [Rx] Mag Hydrox/Al Hydrox/Simeth [Maalox] 30 ml PO Q4HR PRN ml 05/17/23 [Rx] polyethylene glycoL 3350 [Miralax] 17 gm PO DAILY PRN packet 05/17/23 [Rx] Ferrous Sulfate [Iron (65 MG Elemental)] 325 mg PO BID 05/26/23 [History] Gabapentin 300 mg PO Q8H 05/26/23 [History] Nicotine 14Mg/24Hr Patch [Habitrol 14Mg/24Hr Patch] 1 patch TRANSDERM DAILY 05/26/23 [History] Nicotine 7Mg/24Hr Patch [Habitrol] 1 patch TRANSDERM DIRECTED 05/26/23 [History] Sennosides-Docusate Sodium [Senokot-S] 2 tab PO DAILY PRN 05/26/23 [History] oxyCODONE-APAP 10-325MG [Percocet 10-325 mg] 1 tab PO Q4HR PRN 05/26/23 [History] Cyclobenzaprine [Flexeril] 10 mg PO TID #90 tablet 05/31/23 [Rx] Gabapentin 300 mg PO TID #90 cap 05/31/23 [Rx] Sennosides/Docusate Sodium [Senna Plus 8.6-50 mg Tablet] 1 each PO DAILY PRN #20 tablet 05/31/23 [Rx] cefaDROXiL [Duricef] 500 mg PO Q12HR #10 cap 05/31/23 [Rx] oxyCODONE-APAP 10-325MG [Percocet 10-325 mg] 1 tab PO Q4HR PRN #42 tab 03/06/24 [Rx] Follow up Appointment(s)/Referral(s): Matt Medina MD [Primary Care Provider] - 1-2 days [facility], [NON-STAFF] - As Needed Jluis Yao DO [Doctor of Osteopathic Medicine] - 2 Weeks Activity/Diet/Wound Care/Special Instructions: Spine Discharge and Recovery Instructions Medications: See medication list All medication refills should be obtained through your primary care doctor or your clinic spine surgeon. Please discuss prescription refills at your follow up appointment. Do not call the hospital for medication refills. Activity: Encourage ambulation with assist of walker, Up and about 6-8x daily PT/OT daily work on balance, strength and mobility Up in chair with all meals Shower daily Brace: Use brace when up and about, do not wear in bed or shower Dressing: Leave your dressing in place for a total of 3 days post operatively. Then you may remove your dressing and leave open to air. Keep the area clean and if not able to keep area clean, then cover with sterile gauze and tape. Showering: You may shower 3 days after your procedure allowing soap and water to run over incision. Do not scrub. Do not soak. Blot dry. Follow up: Please confirm a follow up appointment with your surgeon 2 weeks post operatively. Please make an appointment to follow up with your PCP in 1-2 weeks after surgery for evaluation 3 phase, 3-week plan POST OP WEEKS 1-3 1. Lifting/carrying/pushing/pulling limited to less than 5 pounds. 2. Do not sit for longer than 15 minutes at one time. Get up and walk around. Prolonged sitting is NOT advised. If you lay down, see if you can tolerate laying down on you front (belly side) 3. Walk for periods of 15 minutes = 1 mile but no longer; do it multiple times times each day. 4. Ice your low back after activity. POST OP WEEKS 3-6 1. Lifting limited to less than 20 pounds. 2. Do not sit for longer than 30 minutes at a time. Frequently change positions. Use a sit-to stand workstation or take frequent breaks from sitting if you have returned to work. 3. Walk for 30 minutes each day. If possible, do these three or more times a day POST OP WEEKS 6+ At your 6-week appointment we will give you a physical therapy referral to focus on a core stabilization and strengthening program. You should also work on leg & buttock strengthening, hamstring & quadriceps stretching, and continue a low impact aerobic activity program such as swimming, walking, or riding a stationary bicycle. During the initial 6 weeks after your surgery, you are at the highest risk of re-injuring your spine. You should generally avoid BLTs (bending, lifting and twisting combination motions) and follow the above guidelines to reduce the chance of reinjury. You can anticipate post op appointments in our office at approximately 3 weeks and 6 weeks after your surgery. INCISION CARE: If your incision is not draining you do NOT need to cover it with a dressing. Keep your incision clean, dry and intact. In most cases, we apply skin glue, rocio or sutures to the incision at the time of surgery. This will be like a crust or have the appearance of a scab and will fall off in time on its own. The stitches or rocio need to be removed at 3 weeks post op appointment. You may begin to shower 3 days after surgery (this allows the glue to carbajal well). However, please avoid scrubbing the incision site or peeling off any of the skin glue. This will ensure optimal healing of your incision. Also, during this time avoid soaking the incision area in water - this includes swimming pools, hot tubs or baths. No ointments, lotions or oils on the incision until your surgeon allows. Leave rocio, sutures or glue in place. Neurological dysfunction that comes on suddenly can also be a sign of a stroke. Below some common symptoms of a stroke are listed: B - balance difficulty such as sudden onset walking or leaning to one side - NEW E - eye problem such as sudden double vision or trouble seeing on one side - NEW F - Facial weakness or numbness on one side - NEW A - Arm or leg weakness or numbness on one side - NEW S - Slurred speech or difficulty with word finding - NEW T - Time is BRAIN! Call 911 as soon as you recognize these symptoms Diet: Consume a regular diet rich in vegetables and lean protein such as chicken or fish. You should consume in a ratio of approximately 20% fats|40% c arbohydrates|40%protein. Vegetables, sweet potatoes, brown rice or quinoa are examples of good carbohydrates. Chips, white bread, cookies and sweets/sugar are examples of bad carbohydrates. Limit your bad carbs, go wild with good carbs. "Life's Simple 7" Guidelines as per [place] [employer] These will help you reclaim your life after surgery and plate glass installer helper in your recovery, keeping in mind your restrictions. (1) Get Active. Physical activity can help people lose weight, control high blood pressure and cholesterol, feel emotionally better, and sleep better. (2) Control Cholesterol. Avoid a diet high in saturated fat, trans fat, & cholesterol. Limit whole milk & cream, ice cream, butter, egg yolks, processed meats (like sausage and hot dogs), and fatty meats. Choose healthy foods that are low in saturated fat, trans fat and cholesterol which include: Fruits and vegetables, fiber rich grain products (like whole grain pasta and brown rice), lean meat such as chicken, fish, nuts, seeds, and legumes. (3) Eat Better. Eat small portions. Shop at the grocery with a list and do not stray from it. Tips for a healthy diet include: Limit sodium intake to less than 1500mg daily, avoid prepackaged, processed, and fast foods, choose a diet rich in fruits, vegetables, and whole grain, high fiber foods, and limit saturated & cholesterol in your diet. (4) Manage Blood Pressure. If you have high blood pressure, you should have a cuff at home so that you can check your blood pressure regularly. Be sure you have a good cuff. An arm one is generally better than a wrist one. Bring the cuff to a doctor's appointment to validate that the measurements that your cuff are taking are accurate. Take your blood pressure twice daily when you are sitting down and relaxing. Record the numbers in a log and bring this log with you to your doctors' appointments. (5) Lose Weight if your BMI is above 25. A healthy BMI is between 19-25. To calculate Your BMI, you may use a Standard BMI Calculator on the NIH BMI website: <www.nhlbi.nih.gov/guidelines/obesity/BMI/bmicalc.htm>. Weigh oneself daily. If you are overweight, set a goal to lose weight. A pound a week loss if needed is a good target. (6) Reduce Blood Sugar. Limit foods and liquids with "added sugars." (Added sugars include sucrose, fructose, glucose, maltose, dextrose, high fructose corn syrup, corn syrup, concentrated fruit juice and honey). (7) Stop Smoking. If you smoke, quitting smoking is one of the best things that you can do for your health. Smoking increases your risk of heart attack, stroke, and peripheral vascular disease, which is a build-up of plaque in your arteries. Please discard all the cigarettes and lighters in your house. Have a plan for what you will do when you have the urge to smoke. Direct and second- hand smoke shortens your life as well as the lives of your family, friends and others around you. For your health and the health of those around you, please consider quitting! Proper Bending Body Mechanics: Maintain a wide stance with one foot slightly in front of the other. Keep your back straight. Bend utilizing the strength in your hips and knees. Do not bend at the waist. Maintain the lifted object at your waist-level close to your body. Avoid lifting weight that causes immediately pain or pain anywhere in the body afterwards. Smoking/Nicotine If there was ever one thing that you could do to increase your overall health, decrease your risk of cardiovascular problems by about 39% the second you make the choice, it is to STOP SMOKING. Your body's most instant gratification is the second you stop smoking. We have all heard the studies, read the articles but it is true, smoking is extremely bad for your overall health, and moreover it is detrimental to your bone health. Nicotine, IN ANY FORM, kills bone cells, prevents your body from healing fractures, and significantly prolongs healing after surgery. In spine surgery specifically, it increases your risk of not healing your bones to create a fusion and increases your risk of having a revision surgery due to this up to 60%. I know it is hard. I know it feels impossible. But there are ways. Take contr ol of your life. We are here to help you through it. And when you are ready, ask us and we can direct you to help if you desire. Use the START Plan to Quit Smoking (please visit the Helpguide.org website listed below for more information): S = Set a quit date. Choose a date within the next 2 weeks, so you have enough time to prepare without losing your motivation to quit. If you mainly smoke at work, quit on the weekend, so you have a few days to adjust to the change. T = Tell family, friends, and co-workers that you plan to quit. Let your friends and family in on your plan to quit smoking and tell them you need their support and encouragement to stop. Look for a quit myles who wants to stop smoking as well. You can help each other get through the rough times. A = Anticipate and plan for the challenges you'll face while quitting. Most people who begin smoking again do so within the first 3 months. You can help yourself make it through by preparing ahead for common challenges, such as nicotine withdrawal and cigarette cravings. R = Remove cigarettes and other tobacco products from your home, car, and work. Throw away all your cigarettes (no emergency pack!), lighters, ashtrays, and matches. Wash your clothes and freshen up anything that smells like smoke. Shampoo your car, clean your drapes and carpet, and steam your furniture. T = Talk to your doctor about getting help to quit. Your doctor can prescribe medication to help with withdrawal and suggest other alternatives. If you can't see a doctor, you can get many products over the co unter at your local pharmacy or grocery store, including the nicotine patch, nicotine lozenges, and nicotine gum. Resources for Quitting Smoking: <https://www.[place].gov/documents/[facility]/Quit_T obacco_Resources_for_patients_313480_7.pdf> Supplementation: Take recommended dosages of Vitamin D and Calcium to help fortify your bones and help them to heal. See your health maintenance packet for dosages and recommended levels. DVT/VTE prophylaxis: You will be given compression stockings from the hospital. Wear these daily for the first two weeks after surgery. You may take them off at night. You may be prescribed a medication to help thin your blood. Take this as directed. If you are not prescribed this medication, early and frequent ambulation has been shown to be the best prophylaxis to deep vein thrombosis and sequelae related to this event. Discharge Disposition: TRANSFER TO SNF/ECF
--- NOTE | 2023-05-31 14:16 | P.PN ---
Subjective Progress Note Date: 05/31/23 (delayed charting seen at 1030) Patient is a 67-year-old male admitted for catastrophic hardware failure of recent thoraco-lumbar fusion. Patient seen and examined at bedside. He is sleeping. When he awakes he states he is doing well. He denies any chest pain or shortness of breath. Pain is well-controlled and he feels ready for discharge to rehab. Vital signs reviewed General: Nontoxic, no distress, appears at stated age Lungs: Chest rise equal, no accessory muscle use Psych: Alert, oriented, appropriate affect Assessment/Plan: 67-year-old male status-post revision T8 to pelvis decompression and fusion -Patient's home med rec addressed on discharge tab. Patient also given recommendations for repeat CBC in 3 to 4 days to ensure that hemoglobin continues to uptrend. Acute blood loss anemia, anticipated outcome of surgery. Normocytosis, reactive -Repeat CBC in 3 to 4 days -Patient can continue with ferrous sulfate but this can be decreased to once daily as this is equally as effective as twice daily but has less GI side effects and patient has been struggling with constipation. Constipation -Senna daily as needed, MiraLAX daily as needed Peripheral arterial disease COPD without exacerbation Nicotine dependence Anxiety/depression -continue Symbicort twice daily as needed, albuterol as needed, nicotine patch 14 mg daily, then decreased to 7 mcg daily -Seroquel 100 twice daily, thiamine 100. - off lasix as euvolemic Thank you for allowing us to participate in the care of this pleasant patient. Do not hesitate to contact us with questions. Someone can be reached from the [facility] hospitalist group all hours of the day at [phone] or via [employer]. This dictation was prepared using [employer] voice recognition software. Though every attempt is made to correct errors during dictation some may still exist. Objective - Vital Signs Vital signs: Vital Signs Temp 97.4 F L 05/31/23 07:00 Pulse 81 05/31/23 07:00 Resp 18 05/31/23 10:30 BP 151/91 05/31/23 07:00 Pulse Ox 94 L 05/31/23 07:00 FiO2 Intake & Output 05/30/23 05/31/23 05/31/23 18:59 06:59 18:59 Intake Total 180 Output Total 90 90 Balance -90 90 Intake: Oral 180 Output: Drainage 90 90 Back 90 90 Other: Voiding Method Toilet Toilet Urinal Urinal # Voids 4 4 # Bowel Movements 1 3 - Labs CBC & Chem 7: 05/28/23 07:02 05/28/23 07:02
--- NOTE | 2023-06-01 19:31 | CDI ---
Documentation Clarification Form Date: 06/01/2023 07:18:50 PM From: Chrissy Duff Phone: Admit Date: 05/30/2023 08:31:00 AM Patient Name: Lenny Hester Visit Number: [id number] Discharge Date: 05/31/2023 03:00:00 PM ATTENTION: The Clinical Documentation Specialists (CDI) and [facility] Coding Staff appreciate your assistance in clarifying documentation. Please respond to the clarification below the line at the bottom and electronically sign. The CDI & [facility] Coding staff will review the response and follow-up if needed. Please note: Queries are made part of the Legal Health Record. If you have any questions, please contact the author of this message via ITS. Dr. Jluis Yao A Lt T11 pedicle Fx is documented per OP Note. Additional clarification regarding the etiology of the fracture is requested. History/Risk Factors: 67yo M, s/p revisionT8 to pelvisdecompressionandfusion, ABLA, constipation, PVD, COPD, Clinical Indications: X-Ray Results: Rtfixationbar has migrated posteriorly off the T10 Rt pedicle screw which is now 2. 7 cm from the screw, previously it was immediately adjacent to the screw measuring 3 mm. Other screws have migrated posteriorly at T11, T12 and L1. The T11 Rt pedicle screw is now entering the thecal sac slightly. Surgical consultation recommended. Treatment: Subperiostealdissectionwas thentaken downover the lamina and facet joints and TPs were exposed and trough made posterolateral. There was exhuberentscartissue and fluid due to the failure. Screws at T10- T12 had backed out on the Rt and there was screw breakage which accompanied this. On the Rt there was screw breakage at T11 and T12 with back out of screws from T11-L1. The set screws were thenremovedfrom all screw heads and the rods removed. We thenremovedscrews from T10-L1 bilaterally with ease as they were looseand several were broken. When the rods wereremovedwe noted that also L5 and S1 on the Rt were broken as well as S1 on the Lt was also a broken tuliphead. These wereremoved. Thewoundwas thendebridedextensively and irrigated. TPs were then again decorticated L1-S1 and sacral ala with a high speed ya for lateralfusion. Dissectionwas taken out over the sacrum to the pelvis. Pelvis screws B/L were stable. Please clarify the etiology of Lt T11 pedicle Fx, if known: [ ] Traumatic [ ] Fracture of other bone following insertion of orthopedic implant, joint prosthesis, or bone plate [ ] Other (please specify): [ ] Unable to determine (Template Last Revised: May 2020) MTDD
--- NOTE | 2023-06-06 14:21 | CDI ---
Documentation Clarification Form Date: 06/06/2023 02:11:02 PM From: Chrissy Duff Phone: Admit Date: 05/30/2023 08:31:00 AM Patient Name: Lenny Hester Visit Number: [id number] Discharge Date: 05/31/2023 03:00:00 PM ATTENTION: The Clinical Documentation Specialists (CDI) and [facility] Coding Staff appreciate your assistance in clarifying documentation. Please respond to the clarification below the line at the bottom and electronically sign. The CDI & [facility] Coding staff will review the response and follow-up if needed. Please note: Queries are made part of the Legal Health Record. If you have any questions, please contact the author of this message via ITS. Dr. Jluis Yao Thank you for acknowledging the previous query; however, it lacked a response. A Lt T11 pedicleFxis documented per OP Note. Additional clarification regarding the etiology of thefractureis requested. History/Risk Factors: 67yo M,s/previsionT8 to pelvisdecompressionandfusion,ABLA,constipation,PVD,COPD, Clinical Indications: X-RayResults: Rtfixationbar has migrated posteriorly off the T10 Rt pedicle screw which is now 2. 7 cm from the screw, previously it was immediately adjacent to the screw measuring 3 mm. Other screws have migrated posteriorly at T11, T12 and L1.The T11 Rt pedicle screw is now entering the thecal sac slightly. Surgical consultation recommended. Treatment: Subperiostealdissectionwas thentaken downover the lamina and facet joints and TPs were exposed and trough made posterolateral. There was exhuberentscartissue and fluid due to the failure. Screws at T10- T12 had backed out on the Rt and there was screw breakage which accompanied this. On the Rt there was screw breakage at T11 and T12 with back out of screws from T11-L1. The set screws were thenremovedfrom all screw heads and the rodsremoved. We thenremovedscrews from T10-L1 bilaterally with ease as they werelooseand several were broken. When the rods wereremovedwe noted that also L5 and S1 on the Rt were broken as well as S1 on the Lt was also a brokentuliphead. These wereremoved. Thewoundwas thendebridedextensively andirrigated. TPs were then again decorticated L1-S1 and sacral ala with a high speed ya for lateralfusion. Dissectionwas taken out over the sacrum to the pelvis. Pelvis screws B/L were stable. Please clarify the etiology of Lt T11 pedicleFx, if known: [ ]Traumatic fracture [ ]Fractureof other bone followinginsertionof orthopedicimplant, joint prosthesis, or bone plate [ ] Other (please specify): [ ] Unable to determine (Template LastRevised: May 2020) Fractureof other bone followinginsertionof orthopedicimplant, joint prosthesis, or bone plate due to implant failure MTDD
== END 2023-05-31 15:00 | DRG 454 ==
LOC: EC 11:04 → 6NMEDSUR 14:57 → 4SSUR 16:25 → OBSVTOIN 05-30 08:31
PROVIDERS: ADMIT Orthopaedic Surgery; ATTEND Orthopaedic Surgery
PROC: 0RG7071 Fusion of 2 to 7 Thoracic Vertebral Joints with Autologous Tissue Substitute, Posterior Approach, Posterior Column, Open Approach (ICD-10-PCS; 2023-05-27)
PROC: 0RGA0AJ Fusion of Thoracolumbar Vertebral Joint with Interbody Fusion Device, Posterior Approach, Anterior Column, Open Approach (ICD-10-PCS; 2023-05-27)
PROC: 0RGA071 Fusion of Thoracolumbar Vertebral Joint with Autologous Tissue Substitute, Posterior Approach, Posterior Column, Open Approach (ICD-10-PCS; 2023-05-27)
PROC: 0SG10AJ Fusion of 2 or more Lumbar Vertebral Joints with Interbody Fusion Device, Posterior Approach, Anterior Column, Open Approach (ICD-10-PCS; 2023-05-27)
PROC: 0SG1071 Fusion of 2 or more Lumbar Vertebral Joints with Autologous Tissue Substitute, Posterior Approach, Posterior Column, Open Approach (ICD-10-PCS; 2023-05-27)
PROC: 0SG30AJ Fusion of Lumbosacral Joint with Interbody Fusion Device, Posterior Approach, Anterior Column, Open Approach (ICD-10-PCS; 2023-05-27)
PROC: 0SG3071 Fusion of Lumbosacral Joint with Autologous Tissue Substitute, Posterior Approach, Posterior Column, Open Approach (ICD-10-PCS; 2023-05-27)
PROC: [UNRECOGNIZED PROCEDURE] (2023-05-27)
PROC: 0QP004Z Removal of Internal Fixation Device from Lumbar Vertebra, Open Approach (ICD-10-PCS; 2023-05-27)
PROC: 0PP404Z Removal of Internal Fixation Device from Thoracic Vertebra, Open Approach (ICD-10-PCS; 2023-05-27)
PROC: 0QB00ZZ Excision of Lumbar Vertebra, Open Approach (ICD-10-PCS; 2023-05-27)
PROC: 8E0WXBZ Computer Assisted Procedure of Trunk Region (ICD-10-PCS; 2023-05-27)
PROC: 30233N1 Transfusion of Nonautologous Red Blood Cells into Peripheral Vein, Percutaneous Approach (ICD-10-PCS; 2023-05-27)
PROC: 0RG70AJ Fusion of 2 to 7 Thoracic Vertebral Joints with Interbody Fusion Device, Posterior Approach, Anterior Column, Open Approach (ICD-10-PCS; principal; 2023-05-27 08:00)
DX: T84.216A Breakdown (mechanical) of internal fixation device of vertebrae, initial encounter (principal); D62 Acute posthemorrhagic anemia; M96.69 Fracture of other bone following insertion of orthopedic implant, joint prosthesis, or bone plate; F29 Unspecified psychosis not due to a substance or known physiological condition; J44.9 Chronic obstructive pulmonary disease, unspecified; I73.9 Peripheral vascular disease, unspecified; F32.A Depression, unspecified; K21.9 Gastro-esophageal reflux disease without esophagitis; F17.210 Nicotine dependence, cigarettes, uncomplicated; K59.00 Constipation, unspecified; F41.9 Anxiety disorder, unspecified; M85.88 Other specified disorders of bone density and structure, other site; Y79.3 Surgical instruments, materials and orthopedic devices (including sutures) associated with adverse incidents; Z79.82 Long term (current) use of aspirin; Z79.899 Other long term (current) drug therapy; Z88.5 Allergy status to narcotic agent; Z79.51 Long term (current) use of inhaled steroids
CPT/HCPCS: 36415; 36430; 72080; 72128; 72131; 80048; 80053; 85025; 85027; 85610; 85730; 86850; 86900; 86901; 86920; 93005; 94760; 96374; 96376; 99285

== ENCOUNTER 2023-07-24 03:25 | Emergency (ER) | payer MEDICARE, OTHER ==
[2023-07-24 04:21] LABS: Anisocytosis Slight; Basophils % (A) 0 %; Eosinophils # (A) 0.2 k/uL (0-0.7); Eosinophils % (A) 3 %; HCT 38.2 % (39.0-53.0); HGB 11.8 gm/dL (13.0-17.5); Lymphocytes # (A) 1.4 k/uL (1.0-4.8); Lymphocytes % (A) 19 %; MCH 26.2 pg (25.0-35.0); MCV 84.6 fL (80.0-100.0); Mean Platelet Volume 7.4; Microcytosis Slight; Monocytes # (A) 0.5 k/uL (0-1.0); Monocytes % (A) 7 %; Neutrophils # (A) 5.2 k/uL (1.3-7.7); Neutrophils % (A) 70 %; Platelet Count 352 k/uL (150-450); RBC 4.52 m/uL (4.30-5.90); RDW 17.6 % (11.5-15.5); WBC 7.5 k/uL (3.8-10.6)
[2023-07-24 04:45] LABS: ALT 35 U/L (4-49); AST 41 U/L (17-59); African American GFR (CKD) >90 (>60 ml/min/1.73 sqM); Albumin 4.1 g/dL (3.5-5.0); Alkaline Phosphatase 140 U/L (38-126); Anion Gap 13 mmol/L; Blood Urea Nitrogen 8 mg/dL (9-20); Calcium 8.7 mg/dL (8.4-10.2); Carbon Dioxide 20 mmol/L (22-30); Chloride 105 mmol/L (98-107); Glucose 102 mg/dL (74-99); Non-African American GFR(CKD) >90 (>60 ml/min/1.73 sqM); Potassium 4.3 mmol/L (3.5-5.1); Sodium 138 mmol/L (137-145); Total Bilirubin 0.3 mg/dL (0.2-1.3); Total Protein 7.7 g/dL (6.3-8.2)
[2023-07-24 04:56] LABS: Alcohol 226 mg/dL
--- NOTE | 2023-07-24 06:43 | ED ---
Fall HPI - General Chief Complaint: Fall Stated Complaint: ETOH Time Seen by Provider: 07/24/23 03:35 Source: patient, EMS Mode of arrival: EMS - History of Present Illness Initial Comments: 67-year-old male with surgical fixation of his lower back who presents emergency department after he sustained a fall. Patient was at home drinking when he fell from a standing position. Patient states he drinks alcohol most days. Unable to indicate how much he did drink today but states it was not that much. Patient denies hitting his head or losing consciousness. He denies any neck pain. Does admit to low back pain as he fell onto his lower back. He states that he was able to get up and move around but due to the severity of the pain he called EMS. They did not provide him with anything for the pain at this time. Denies any numbness or tingling. No saddle anesthesia. No other alleviating, precipitating or modifying factors - Related Data Home Medications Medication Instructions Recorded Confirmed Omeprazole [PriLOSEC] 20 mg PO DAILY 01/13/22 05/26/23 QUEtiapine FUMARATE [QUEtiapine 100 mg PO BID 01/13/22 05/26/23 FUMARATE ER] Thiamine [Vitamin B-1] 100 mg PO BID 01/13/22 05/26/23 Albuterol Inhaler [Ventolin Hfa 2 puff INHALATION RT-Q4H PRN 01/24/23 05/26/23 Inhaler] Budesonide/Formoterol Fumarate 2 puff INHALATION RT-BID PRN 01/24/23 05/26/23 [Symbicort 160-4.5 Mcg Inhaler] Gabapentin 300 mg PO Q8H 05/26/23 05/26/23 Nicotine 14Mg/24Hr Patch [Habitrol] 1 patch TRANSDERM DAILY 05/26/23 05/26/23 Nicotine 7Mg/24Hr Patch [Habitrol] 1 patch TRANSDERM DIRECTED 05/26/2304/19 oxyCODONE-APAP 10-325MG [Percocet 1 tab PO Q4HR PRN 05/26/23 05/26/23 10-325 mg] Previous Rx's Medication Instructions Recorded Aspirin EC [Ecotrin Low Dose] 81 mg PO DAILY 90 Days #90 tab 01/15/22 Ipratropium-Albuterol Nebulize 3 ml INHALATION RT-Q2H PRN each 05/17/23 [Duoneb 0.5 mg-3 mg/3 ml Soln] polyethylene glycoL 3350 [Miralax] 17 gm PO DAILY PRN packet 05/17/23 Cyclobenzaprine [Flexeril] 10 mg PO TID #90 tablet 05/31/23 Ferrous Sulfate [Iron (65 MG 325 mg PO DAILY #0 05/31/23 Elemental)] Gabapentin 300 mg PO Q8H #24 cap 05/31/23 Sennosides/Docusate Sodium [Senna 1 each PO DAILY PRN #20 tablet 05/31/23 Plus 8.6-50 mg Tablet] cefaDROXiL [Duricef] 500 mg PO Q12HR #10 cap 05/31/23 oxyCODONE-APAP 10-325MG [Percocet 1 tab PO Q4HR PRN #18 tab 05/31/23 10-325 mg] Ketorolac [Toradol] 10 mg PO Q8HR #15 tab 07/26/23 Allergies Allergy/AdvReac Type Severity Reaction Status Date / Time hydrocodone [From [place]] Allergy Itching Verified 07/26/23 17:08 Review of Systems ROS Statement: Those systems with pertinent positive or pertinent negative responses have been documented in the HPI. ROS Other: All systems not noted in ROS Statement are negative. Past Medical History Past Medical History: COPD, GERD/Reflux, Osteoarthritis (OA), Vascular Disorder Additional Past Medical History / Comment(s): left foot fx-ok ,pain left leg- worse left hip( possible back related) see orthopedic DR with MRI scheduled today,hx colon polyps, trouble swallowing. some vomiting. pt states he does not use his inhalers. Pt rescheduled due to diarrhea. pt states lasted a day feels fine now. was not asked to see PCP. History of Any Multi-Drug Resistant Organisms: None Reported Date of last positivie culture/infection: None MDRO Source:: None Past Surgical History: Orthopedic Surgery Additional Past Surgical History / Comment(s): thumb and finger repair, colonoscopy. [id number] decomp and fusion 05/11 Past Anesthesia/Blood Transfusion Reactions: No Reported Reaction Past Psychological History: Anxiety, Depression Smoking Status: Former smoker Past Alcohol Use History: Daily Past Drug Use History: None Reported - Past Family History Mother Family Medical History: No Reported History Father Family Medical History: Myocardial Infarction ([place]) General Exam Limitations: altered mental status General appearance: alert, appears intoxicated Head exam: Present: atraumatic, normocephalic, normal inspection Eye exam: Present: normal appearance, PERRL, EOMI. Absent: scleral icterus, conjunctival injection, periorbital swelling ENT exam: Present: normal exam, mucous membranes moist Neck exam: Present: normal inspection. Absent: tenderness, meningismus, lymphadenopathy Respiratory exam: Present: normal lung sounds bilaterally. Absent: respiratory distress, wheezes, rales, rhonchi, stridor Cardiovascular Exam: Present: regular rate, normal rhythm, normal heart sounds. Absent: systolic murmur, diastolic murmur, rubs, gallop, clicks GI/Abdominal exam: Present: soft, normal bowel sounds. Absent: distended, tenderness, guarding, rebound, rigid Extremities exam: Present: normal inspection, full ROM, normal capillary refill. Absent: tenderness, pedal edema, joint swelling, calf tenderness Back exam: Present: normal inspection Neurological exam: Present: alert, oriented X3, CN II-XII intact Psychiatric exam: Present: normal affect, normal mood Skin exam: Present: warm, dry, intact, normal color. Absent: rash Course Vital Signs 07/24/23 07/24/23 07/24/23 03:28 03:41 06:22 Temperature 98.2 F Pulse Rate 81 66 83 Respiratory 18 16 16 Rate Blood Pressure 95/71 97/66 124/77 O2 Sat by Pulse 96 95 93 L Oximetry 07/24/23 07:58 Temperature 98.0 F Pulse Rate 77 Respiratory 18 Rate Blood Pressure 135/80 O2 Sat by Pulse 96 Oximetry Medical Decision Making - Medical Decision Making Was pt. sent in by a medical professional or institution (, PA, DIRECTOR [employer], urgent care, hospital, or retirement...) When possible be specific @ -No Did you speak to anyone other than the patient for history (EMS, parent, family, police, friend...)? What history was obtained from this source @ -EMS Did you review nursing and triage notes (agree or disagree)? Why? @ -I reviewed and agree with nursing and triage notes Were old charts reviewed (outside hosp., previous admission, EMS record, old EKG, old radiological studies, urgent care reports/EKG's, retirement records)? Report findings @ -No old charts were reviewed Differential Diagnosis (chest pain, altered mental status, abdominal pain women, abdominal pain men, vaginal bleeding, weakness, fever, dyspnea, syncope, headache, dizziness, GI bleed, back pain, seizure, CVA, palpatations, mental health, musculoskeletal)? @ -Differential Back Pain: Strain, zoster, cauda equina syndrome, epidural abscess, vertebral osteomyelitis, discitis, fracture, subluxation, disc herniation, DJD, spinal stenosis, dissection, AAA, pancreatitis, peptic ulcer disease, pyelonephritis, kidney stone, this is not meant to be an all-inclusive list. EKG interpreted by me (3pts min.). @ -Not done X-rays interpreted by me (1pt min.). @ -Yes and demonstrates no acute process CT interpreted by me (1pt min.). @ -None done U/S interpreted by me (1pt. min.). @ -None done What testing was considered but not performed or refused? (CT, X-rays, U/S, labs)? Why? @ -None What meds were considered but not given or refused? Why? @ -None Did you discuss the management of the patient with other professionals (professionals i.e. , PA, DIRECTOR [employer], lab, RT, psych nurse, school social worker, cutter out, teacher, fourth officer, child welfare caseworker)? Give summary @ -No Was smoking cessation discussed for >3mins.? @ -No Was critical care preformed (if so, how long)? @ -No Were there social determinants of health that impacted care today? How? (Homelessness, low income, unemployed, alcoholism, drug addiction, transportation, low edu. Level, literacy, decrease access to med. care, fpc, rehab)? @ -No Was there de-escalation of care discussed even if they declined (Discuss DNR or withdrawal of care, Hospice)? DNR status @ -No What co-morbidities impacted this encounter? (DM, HTN, Smoking, COPD, CAD, Cancer, CVA, ARF, Chemo, Hep., AIDS, mental health diagnosis, sleep apnea, morbi d obesity)? @ -Chronic back pain Was patient admitted / discharged? Hospital course, mention meds given and route, prescriptions, significant lab abnormalities, going to OR and other pertinent info. @ -Upon arrival patient was seen and evaluated in room 7. Thorough history and physical exam was performed. Patient reports to low back pain. States that his pain is chronic however he is having worsening symptoms due to the fall. Patient states he has been drinking. He denies any numbness or tingling in his lower extremities. No saddle anesthesia. No bowel or bladder incontinence. X- ray was performed. Patient is able to ambulate to and from bathroom without difficulty. No acute distress at this time. Instructed to take his home medications as needed for his back pain and return for any new or worsening symptoms. Patient does remain within the emergency department for several hours in order to sober up. He is discharged home with a safe ride Undiagnosed new problem with uncertain prognosis? @ -No Drug Therapy requiring intensive monitoring for toxicity (Heparin, Nitro, Ins ulin, Cardizem)? @ -No Were any procedures done? @ -No Diagnosis/symptom? @ -Acute alcohol intoxication, acute fall, acute exacerbation of chronic back pain Acute, or Chronic, or Acute on Chronic? @ -Acute, acute, acute on chronic Uncomplicated (without systemic symptoms) or Complicated (systemic symptoms)? @ -Complicated Side effects of treatment? @ -No Exacerbation, Progression, or Severe Exacerbation? @ -No Poses a threat to life or bodily function? How? (Chest pain, [place], [place], pneumonia, PE, COPD, DKA, ARF, appy, cholecystitis, CVA, Diverticulitis, Homicidal, Suicidal, threat to staff... and all critical care pts) @ -No - Lab Data Result diagrams: 07/24/23 04:07 07/24/23 04:07 Lab Results 07/24/23 07/24/23 Range/Units 04:07 04:07 WBC 7.5 (3.8-10.6) k/uL RBC 4.52 (4.30-5.90) m/uL Hgb 11.8 L (13.0-17.5) gm/dL Hct 38.2 L (39.0-53.0) % MCV 84.6 (80.0-100.0) fL MCH 26.2 (25.0-35.0) pg MCHC 31.0 (31.0-37.0) g/dL RDW 17.6 H (11.5-15.5) % Plt Count 352 (150-450) k/uL MPV 7.4 Neutrophils % 70 % Lymphocytes % 19 % Monocytes % 7 % Eosinophils % 3 % Basophils % 0 % Neutrophils # 5.2 (1.3-7.7) k/uL Lymphocytes # 1.4 (1.0-4.8) k/uL Monocytes # 0.5 (0-1.0) k/uL Eosinophils # 0.2 (0-0.7) k/uL Basophils # 0.0 (0-0.2) k/uL Anisocytosis Slight Microcytosis Slight Sodium 138 (137-145) mmol/L Potassium 4.3 (3.5-5.1) mmol/L Chloride 105 (98-107) mmol/L Carbon Dioxide 20 L (22-30) mmol/L Anion Gap 13 mmol/L BUN 8 L (9-20) mg/dL Creatinine 0.73 (0.66-1.25) mg/dL Est GFR (CKD-EPI)AfAm >90 (>60 ml/min/1.73 sqM) Est GFR (CKD-EPI)NonAf >90 (>60 ml/min/1.73 sqM) Glucose 102 H (74-99) mg/dL Calcium 8.7 (8.4-10.2) mg/dL Total Bilirubin 0.3 (0.2-1.3) mg/dL AST 41 (17-59) U/L ALT 35 (4-49) U/L Alkaline Phosphatase 140 H (38-126) U/L Total Protein 7.7 (6.3-8.2) g/dL Albumin 4.1 (3.5-5.0) g/dL Serum Alcohol 226 H* mg/dL Disposition Clinical Impression: Fall, Thoracolumbar back pain Disposition: HOME SELF-CARE Condition: Stable Instructions (If sedation given, give patient instructions): Fall Prevention (ED) Additional Instructions: Please follow-up with Dr. Cohn send for reevaluation of your symptoms and return for any new or worsening symptoms Is patient prescribed a controlled substance at d/c from ED?: No Referrals: None,Stated [Primary Care Provider] - 1-2 days Jluis Yao DO [Doctor of Osteopathic Medicine] - 1-2 days Time of Disposition: 06:55
--- NOTE | 2023-07-24 07:00 | XR ---
EXAM: XR Lumbosacral Spine, 2 or 3 Views CLINICAL HISTORY: ITS.REASON XR Reason: fall, back pain TECHNIQUE: Frontal and lateral views of the lumbar spine and sacrum. COMPARISON: No relevant prior studies available. IMPRESSION: 1. No evidence of acutely displaced fracture or dislocation within the lumbar spine. 2. Incompletely visualized fracture-iliac spinal fusion hardware changes. Consider cross-sectional imaging if there is further concern. 3. Atherosclerotic calcifications with stenting in the left common iliac artery.
[2023-07-24] MEDS: MORPHINE SULFATE 4 MG/ML SYRINGE IVP STA (07:51)
[2023-07-24 08:30] VITALS: BP 135/80; PULSE 77; RESP 18; TEMP 98
== END 2023-07-24 08:39 | disposition home or self-care (01) ==
LOC: EC 03:25
DX: G89.29 Other chronic pain (principal); M54.6 Pain in thoracic spine; M54.50 Low back pain, unspecified; F10.129 Alcohol abuse with intoxication, unspecified; Z87.891 Personal history of nicotine dependence; Z88.5 Allergy status to narcotic agent; W18.30XA Fall on same level, unspecified, initial encounter; Y90.7 Blood alcohol level of 200-239 mg/100 ml
CPT/HCPCS: 99284 ×2; 96374 ×2; 36415; 80053; 85025; 72100; G0480; J2270; 80320

== ENCOUNTER 2023-07-26 16:46 | Emergency (ER) | payer MEDICARE, OTHER ==
--- NOTE | 2023-07-26 17:15 | ED ---
Back Pain HPI - General Chief Complaint: Back Pain/Injury Stated Complaint: Back pain Time Seen by Provider: 07/26/23 17:02 Source: patient, RN notes reviewed Limitations: no limitations - History of Present Illness Initial Comments: This is a 67-year-old male presents the emergency department chief complaint of chronic back pain. Patient states that he has had worsening pain over the last few days. He denies any recent trauma, falls, injury. States that he has taken Tylenol and Motrin at home with minimal relief. Patient is looking for additional pain medication at this time. Additionally, he has a follow-up appointment with his pharmacy specialist in August. Patient denies shortness of breath, loss of bladder or bowel continence, saddle anesthesias, paresthesias. - Related Data Home Medications Medication Instructions Recorded Confirmed Omeprazole [PriLOSEC] 20 mg PO DAILY 01/13/22 05/26/23 QUEtiapine FUMARATE [QUEtiapine 100 mg PO BID 01/13/22 05/26/23 FUMARATE ER] Thiamine [Vitamin B-1] 100 mg PO BID 01/13/22 05/26/23 Albuterol Inhaler [Ventolin Hfa 2 puff INHALATION RT-Q4H PRN 01/24/23 05/26/23 Inhaler] Budesonide/Formoterol Fumarate 2 puff INHALATION RT-BID PRN 01/24/23 05/26/23 [Symbicort 160-4.5 Mcg Inhaler] Gabapentin 300 mg PO Q8H 05/26/23 05/26/23 Nicotine 14Mg/24Hr Patch [Habitrol] 1 patch TRANSDERM DAILY 05/26/23 05/26/23 Nicotine 7Mg/24Hr Patch [Habitrol] 1 patch TRANSDERM DIRECTED 05/26/23 05/26/23 oxyCODONE-APAP 10-325MG [Percocet 1 tab PO Q4HR PRN 05/26/23 05/26/23 10-325 mg] Previous Rx's Medication Instructions Recorded Aspirin EC [Ecotrin Low Dose] 81 mg PO DAILY 90 Days #90 tab 01/15/22 Ipratropium-Albuterol Nebulize 3 ml INHALATION RT-Q2H PRN each 05/17/23 [Duoneb 0.5 mg-3 mg/3 ml Soln] polyethylene glycoL 3350 [Miralax] 17 gm PO DAILY PRN packet 05/17/23 Cyclobenzaprine [Flexeril] 10 mg PO TID #90 tablet 05/31/23 Ferrous Sulfate [Iron (65 MG 325 mg PO DAILY #0 05/31/23 Elemental)] Gabapentin 300 mg PO Q8H #24 cap 05/31/23 Sennosides/Docusate Sodium [Senna 1 each PO DAILY PRN #20 tablet 05/31/23 Plus 8.6-50 mg Tablet] cefaDROXiL [Duricef] 500 mg PO Q12HR #10 cap 05/31/23 oxyCODONE-APAP 10-325MG [Percocet 1 tab PO Q4HR PRN #18 tab 05/31/23 10-325 mg] Ketorolac [Toradol] 10 mg PO Q8HR #15 tab 07/26/23 Allergies Allergy/AdvReac Type Severity Reaction Status Date / Time hydrocodone [From [place]] Allergy Itching Verified 07/26/23 17:08 Review of Systems ROS Statement: Those systems with pertinent positive or pertinent negative responses have been documented in the HPI. ROS Other: All systems not noted in ROS Statement are negative. Past Medical History Past Medical History: COPD, GERD/Reflux, Osteoarthritis (OA), Vascular Disorder Additional Past Medical History / Comment(s): left foot fx-ok ,pain left leg- worse left hip( possible back related) see orthopedic DR with MRI scheduled today,hx colon polyps, trouble swallowing. some vomiting. pt states he does not use his inhalers. Pt rescheduled due to diarrhea. pt states lasted a day feels fine now. was not asked to see PCP. History of Any Multi-Drug Resistant Organisms: None Reported Date of last positivie culture/infection: None MDRO Source:: None Past Surgical History: Orthopedic Surgery Additional Past Surgical History / Comment(s): thumb and finger repair, colonoscopy. [id number] decomp and fusion 05/11 Past Anesthesia/Blood Transfusion Reactions: No Reported Reaction Past Psychological History: Anxiety, Depression Smoking Status: Former smoker Past Alcohol Use History: Daily Past Drug Use History: None Reported - Past Family History Mother Family Medical History: No Reported History Father Family Medical History: Myocardial Infarction ([place]) General Exam Limitations: no limitations General appearance: alert, in no apparent distress Head exam: Present: atraumatic, normocephalic, normal inspection Eye exam: Present: normal appearance, PERRL, EOMI. Absent: scleral icterus, conjunctival injection, periorbital swelling ENT exam: Present: normal exam, mucous membranes moist Neck exam: Present: normal inspection. Absent: tenderness, meningismus, lymphadenopathy Respiratory exam: Present: normal lung sounds bilaterally. Absent: respiratory distress, wheezes, rales, rhonchi, stridor Cardiovascular Exam: Present: regular rate, normal rhythm, normal heart sounds. Absent: systolic murmur, diastolic murmur, rubs, gallop, clicks GI/Abdominal exam: Present: soft, normal bowel sounds. Absent: distended, tenderness, guarding, rebound, rigid Extremities exam: Present: normal inspection, full ROM, normal capillary refill. Absent: tenderness, pedal edema, joint swelling, calf tenderness Back exam: Present: normal inspection, tenderness. Absent: full ROM Neurological exam: Present: alert, oriented X3, CN II-XII intact Psychiatric exam: Present: normal affect, normal mood Skin exam: Present: warm, dry, intact, normal color. Absent: rash Course Vital Signs 07/26/23 07/26/23 07/26/23 17:06 17:47 18:28 Temperature 98.0 F 98 F Pulse Rate 118 H 106 H 112 H Respiratory 18 18 18 Rate Blood Pressure 96/54 92/65 113/79 O2 Sat by Pulse 95 97 95 Oximetry Medical Decision Making - Medical Decision Making Was pt. sent in by a medical professional or institution ([facility], EMBEDDER, urgent care, hospital, or skilled nursing...) When possible be specific @ -No Did you speak to anyone other than the patient for history (EMS, parent, family, police, friend...)? What history was obtained from this source @ -No Did you review nursing and triage notes (agree or disagree)? Why? @ -I reviewed and agree with nursing and triage notes Were old charts reviewed (outside hosp., previous admission, EMS record, old EKG, old radiological studies, urgent care reports/EKG's, skilled nursing records)? Report findings @ -No old charts were reviewed Differential Diagnosis (chest pain, altered mental status, abdominal pain women, abdominal pain men, vaginal bleeding, weakness, fever, dyspnea, syncope, headache, dizziness, GI bleed, back pain, seizure, CVA, palpatations, mental health, musculoskeletal)? @ -Differential Musculoskeletal Muscular strain, contusion, ligament sprain, fracture, arthritis, septic arthritis, bursitis, cellulitis, muscle spasm, nerve compression, DVT, arterial occlusion, herpes zoster, electrolyte abnormality, tumor.... This is not meant to be in all inclusive list EKG interpreted by me (3pts min.). @ -None X-rays interpreted by me (1pt min.). @ -None done CT interpreted by me (1pt min.). @ -None done U/S interpreted by me (1pt. min.). @ -None done What testing was considered but not performed or refused? (CT, X-rays, U/S, labs)? Why? @ -Other imaging such as x-ray and CT were considered but deferred at this time due to patient having recent imaging of his back and no acute injury or falls. What meds were considered but not given or refused? Why? @ -None Did you discuss the management of the patient with other professionals (professionals i.e. , PA, EMBEDDER, lab, RT, psych nurse, nursing home social worker, boat loader helper, teacher, dispatch officer, showcase maker)? Give summary @ -No Was smoking cessation discussed for >3mins.? @ -No Was critical care preformed (if so, how long)? @ -No Were there social determinants of health that impacted care today? How? (Homelessness, low income, unemployed, alcoholism, drug addiction, transportation, low edu. Level, literacy, decrease access to med. care, retirement, rehab)? @ -No Was there de-escalation of care discussed even if they declined (Discuss DNR or withdrawal of care, Hospice)? DNR status @ -No What co-morbidities impacted this encounter? (DM, HTN, Smoking, COPD, CAD, Cancer, CVA, ARF, Chemo, Hep., AIDS, mental health diagnosis, sleep apnea, morbid obesity)? @ -None Was patient admitted / discharged? Hospital course, mention meds given and route, prescriptions, significant lab abnormalities, going to OR and other pertinent info. @ -Discharge. 67-year-old male chief complaint of chronic lumbar back pain. Patient's vitals on arrival are slightly decreased blood pressure therefore stronger pain medications such as opioids were deferred. Patient will be discharged home on oral Toradol as needed. Recommend the patient follows up with his desktop specialist for further evaluation. Additionally, recommend that patient picks up lidocaine patches for direct pain relief. Patient agreed with plan. Case discussed with Dr. Allen. Undiagnosed new problem with uncertain prognosis? @ -No Drug Therapy requiring intensive monitoring for toxicity (Heparin, Nitro, Insulin, Cardizem)? @ -No Were any procedures done? @ -No Diagnosis/symptom? @ -chronic lumbar back pain Acute, or Chronic, or Acute on Chronic? @ -[acute Uncomplicated (without systemic symptoms) or Complicated (systemic symptoms)? @ -uncomplicated Side effects of treatment? @ -No Exacerbation, Progression, or Severe Exacerbation? @ -No Poses a threat to life or bodily function? How? (Chest pain, [place], [place], pneumonia, PE, COPD, DKA, ARF, appy, cholecystitis, CVA, Diverticulitis, Homicidal, Suicidal, threat to staff... and all critical care pts) @ -No Disposition Clinical Impression: Chronic back pain Narrative: Follow up as scheduled with your primary care provider on Monday. Return to the emergency department if symptoms worsen or do not improve. Disposition: HOME SELF-CARE Condition: Good Instructions (If sedation given, give patient instructions): Chronic Back Pain ([place]) Prescriptions: Ketorolac [Toradol] 10 mg PO Q8HR #15 tab Is patient prescribed a controlled substance at d/c from ED?: No Referrals: Matt Medina MD [Primary Care Provider] - 1-2 days Time of Disposition: 17:50
[2023-07-26 17:39] VITALS: RESP 18
[2023-07-26] MEDS: LIDOCAINE 4% PATCH TOPICAL ONE (17:44)
[2023-07-26 18:23] VITALS: TEMP 98
[2023-07-26] MEDS: MORPHINE SULFATE 2 MG/ML SYRINGE IM STA (18:31)
[2023-07-26] MEDS: MORPHINE SULFATE 2 MG/ML SYRINGE IVP ONE (18:31)
[2023-07-26 19:07] VITALS: BP 113/79; PULSE 112
== END 2023-07-26 18:45 | disposition home or self-care (01) ==
LOC: EC 16:46
DX: G89.29 Other chronic pain (principal); M54.50 Low back pain, unspecified; Z88.5 Allergy status to narcotic agent; Z87.891 Personal history of nicotine dependence
CPT/HCPCS: 99283; 96372; J2270

== ENCOUNTER → 2024-01-16 | Outpatient (CLI) | payer MEDICARE, OTHER ==
--- NOTE | 2024-01-16 11:05 | CTL ---
EXAMINATION TYPE: CT Low Dose Lung DATE OF EXAM ORDERED: 01/16/2024 HISTORY: Nicotine dependence, current smoker, 50 pack-year history. Lung cancer screening CT DLP: 84.[address] CTDI: 2.4 mGy Automated exposure control for dose reduction was used. SCREENING VISIT: First screening visit COMPARISON: CT thoracolumbar spine 01/24/1943 TECHNIQUE: Low dose computed tomography scan was performed through the chest at 1 mm thick sections a nd reconstructed images in multiple planes at 1 mm and [address] DIAGNOSTIC QUALITY: Satisfactory FINDINGS: Nodules: No clinically significant pulmonary nodules. LUNGS: COPD: Severity: None Fibrosis: Severity: Mild within the right upper lobe with reticular opacities. Lymph nodes: None Other findings: Patchy right lower lobe dependent atelectasis/consolidation. RIGHT PLEURAL SPACE: Effusion: None Calcification: None Thickening: None Pneumothorax: None LEFT PLEURAL SPACE: Effusion: None Calcification: None Thickening: None Pneumothorax: None HEART: Heart Size: Normal Coronary Calcification: Small Pericardial Effusion: Trace anteriorly OTHER FINDINGS: Upper abdomen: Surface nodularity to the partially visualized liver. Small hiatal hernia. Bony thorax: Posterior fusion changes of the thoracolumbar spine with vertebral augmentation changes. Healing right-sided sixth and seventh rib fractures with callus formation. Fracture lines are still visible. Remote right-sided rib fractures. Remote sternal fracture. Supraclavicular region: None Other: Ascending thoracic aortic aneurysm measuring up to 4.4 cm. Mild atherosclerotic calcification of the aorta and its branches. Conventional branching anatomy. IMPRESSION: 1. No clinically significant pulmonary nodules. 2. Healing right lateral sixth and seventh rib fractures with callus formation. Fracture lines are s till visible. Additional right lower lobe patchy consolidation/atelectasis. 3. Ascending thoracic aortic aneurysm measuring up to 4.4 cm. 4. Surface nodularity of the partially visualized liver. Correlate for cirrhosis. CT LUNG RAD AND CT CHEST RECOMMENDATION: Lung-Rad 1 Negative: Continue annual screening with LDCT in 12 months. S Modifier (other clinically significant findings): S [facility], , 01/16/2024 11:02 AM
== END | disposition home or self-care (01) ==
LOC: RADCTMAIN 10:14
PROVIDERS: ATTEND Family Medicine
CPT/HCPCS: 71271